=== PATIENT | female | born 1975 | race Caucasian/White ===

== ENCOUNTER 2020-08-11 15:50 | Outpatient (REF) | payer MEDICARE, MEDICAID, SELFPAY ==
[2020-08-11 16:59] LABS: Albumin Level 4.2 g/dL (3.5-5.0); Calcium 9.8 mg/dL (8.4-10.2); Estimated Glomerular Filt Rate > 60
== END 2020-08-11 15:51 | disposition home or self-care (01) ==
LOC: HO.LAB 15:50
PROVIDERS: Visit Provider Internal Medicine
DX: M81.0 Age-related osteoporosis without current pathological fracture (principal)
CPT/HCPCS: 82040; 82310; 82565

== ENCOUNTER 2020-09-28 16:15 | Outpatient (REF) | payer MEDICARE, MEDICAID, SELFPAY ==
--- NOTE | 2020-09-28 16:19 | MM_ITS ---
EXAMINATION: MM SCREENING DIGITAL BREAST TOMOSYNTHESIS, BILATERAL CLINICAL INFORMATION: Screening. Asymptomatic. No prior history breast surgery. No known family history breast cancer. The lifetime risk of breast cancer based on the Tyrer-Cuzick Model is 12%. COMPARISON: Outside mammography: 06/23/2017 ([place]) TECHNIQUE: Digital breast tomosynthesis is performed in both the craniocaudal and mediolateral oblique views along with computer-aided detection (CAD). Synthesized 2D images are generated from the tomosynthesis. Additional right exaggerated CC view is provided. Technologist notes technically challenging exam, positioning caliber to patient capabilities. FINDINGS: There are scattered areas of fibroglandular density (ACR BI-RADS breast composition Category b). There are no significant masses, abnormal calcifications, or other abnormalities. The axilla are unremarkable. The skin contours are smooth. No significant changes. MM/MM tomosynthesis screening BI IMPRESSION: No mammographic evidence of malignancy. ASSESSMENT: BI-RADS 1: Negative RECOMMENDATION: Routine annual mammography screening. This patient's information was entered into a reminder system with a target due date for their next mammogram.
== END 2020-09-28 16:16 | disposition home or self-care (01) ==
LOC: HO.MAMMO 16:15
PROVIDERS: PCP Internal Medicine; Visit Provider Internal Medicine
DX: Z12.31 Encounter for screening mammogram for malignant neoplasm of breast (principal)
CPT/HCPCS: 77063; 77067

== ENCOUNTER 2020-10-15 15:54 | Outpatient (REF) | payer MEDICARE, MEDICAID, SELFPAY ==
[2020-10-15 17:48] LABS: Free T4 (Free Thyroxine) 1.26 ng/dL (0.71-1.85)
== END 2020-10-15 15:55 | disposition home or self-care (01) ==
LOC: HO.LAB 15:54
PROVIDERS: PCP Internal Medicine; Visit Provider Internal Medicine
DX: E03.9 Hypothyroidism, unspecified (principal)
CPT/HCPCS: 84439; 84443

== ENCOUNTER 2021-01-15 15:42 | Outpatient (REF) | payer MEDICARE, MEDICAID, SELFPAY ==
[2021-01-15 16:26] LABS: Calcium 9.5 mg/dL (8.4-10.2); Phosphorus 4.5 mg/dL (2.7-4.5)
[2021-01-15 16:50] LABS: Free T4 (Free Thyroxine) 1.31 ng/dL (0.71-1.85); Thyroid Stimulating Hormone 0.76 uIU/mL (0.32-4.0)
[2021-01-18 16:07] LABS: Calcium (PTHI) 9.5 mg/dL (8.6-10.2); PTHI 34 pg/mL (14-64)
== END 2021-01-15 15:43 | disposition home or self-care (01) ==
LOC: HO.LAB 15:42
PROVIDERS: PCP Internal Medicine; Visit Provider Internal Medicine
DX: M81.0 Age-related osteoporosis without current pathological fracture (principal); E03.9 Hypothyroidism, unspecified; E55.9 Vitamin D deficiency, unspecified
CPT/HCPCS: 36415; 82040; 82306; 82310; 83970; 84100; 84439; 84443

== ENCOUNTER → 2021-01-22 15:07 | Outpatient (BNVA) | payer MEDICARE, MEDICAID, SELFPAY | PROVIDERS: PCP Internal Medicine; Visit Provider Internal Medicine Endocrinology, Diabetes & Metabolism | DX: M81.0 Age-related osteoporosis without current pathological fracture (principal) | CPT/HCPCS: 96402 ==

== ENCOUNTER 2021-02-17 15:42 | Outpatient (REF) | payer MEDICARE, MEDICAID, SELFPAY ==
[2021-02-17 16:29] LABS: Albumin Level 4.1 g/dL (3.5-5.0); Calcium 9.8 mg/dL (8.4-10.2)
[2021-02-17 16:55] LABS: Free T4 (Free Thyroxine) 1.14 ng/dL (0.71-1.85); Thyroid Stimulating Hormone 0.75 uIU/mL (0.32-4.0)
[2021-02-18 12:22] LABS: Calcium (PTHI) 9.6 mg/dL (8.6-10.2); PTHI 23 pg/mL (14-64)
== END 2021-02-17 15:43 | disposition home or self-care (01) ==
LOC: HO.LAB 15:42
PROVIDERS: PCP Internal Medicine; Visit Provider Internal Medicine
DX: E03.9 Hypothyroidism, unspecified (principal); M81.0 Age-related osteoporosis without current pathological fracture
CPT/HCPCS: 36415; 82040; 82310; 83970; 84439; 84443

== ENCOUNTER → 2021-05-03 08:02 | Outpatient (BNVA) | payer MEDICARE, MEDICAID, SELFPAY | PROVIDERS: PCP Internal Medicine; Visit Provider Internal Medicine | CPT/HCPCS: Q3014 ==

== ENCOUNTER 2021-05-24 06:20 | Day surgery (SDC) | payer MEDICARE, MEDICAID, SELFPAY ==
[2021-05-13 17:02] LABS: Glucose Urine UA NEG (NEG); Leukocyte Esterase Urine TRACE (NEG); Nitrite Urine NEG (NEG); Specific Gravity - Urine 1.015 (1.005-1.025); UACC Culture Trigger YES; Urine Blood NEG (NEG); Urine Ketones NEG (NEG); Urine Protein NEG (NEG-TRACE)
[2021-05-13 17:03] LABS: Appearance Urine CLEAR; Color Urine YELLOW
[2021-05-13 17:05] LABS: Hemoglobin 13.6 g/dl (12.0-16.0); Mean Corpuscular HGB Conc 32.4 g/dl (31.0-35.0); Mean Corpuscular Hemoglobin 29.8 pg (27.0-33.0); Mean Corpuscular Volume 92.1 fL (80-98); Mean Platelet Volume 12.4 fL (9.4-12.3); Platelet Count 238 X10*3/uL (160-400); Red Blood Count 4.56 X10*6/uL (4.20-5.50); Red Cell Distribution Width 12.7 % (11.0-16.0); White Blood Count 7.9 X10*3/uL (4.8-10.8)
[2021-05-13 17:11] LABS: Prothrombin Time 11.6 SEC (9.9-13.0)
[2021-05-13 17:32] LABS: Anion Gap 15 (12-20); Blood Urea Nitrogen 15 mg/dL (9-16); Calcium 9.3 mg/dL (8.4-10.2); Carbon Dioxide 21 mmol/L (22-29); Chloride 108 mmol/L (96-108); Estimated Glomerular Filt Rate > 60; Glucose Random 94 mg/dL (60-115); Potassium 4.3 mmol/L (3.3-5.1); Sodium 140 mmol/L (135-145)
[2021-05-13 17:33] LABS: Mucus Urine 1+ /LPF; RBC Urine 0-2 /HPF (0); Squamous Epithelial Cell Urine 1+ /LPF
[2021-05-18 09:36] VITALS: BMI 31.5
--- NOTE | 2021-05-20 07:50 | MHC.SHP ---
Pre-Procedural Eval Section A Date of Service: 05/20/21 The patient is an INPATIENT: No The History & Physical has been completed within 30 days and I have reviewed it.: Yes Section B Chief Complaint: Bilateral Cataracts Allergies: Allergies Allergy/AdvReac Type Severity Reaction Status Date / Time No Known Allergies Allergy Verified 05/13/21 15:17 [No Known Allergies*] Plan Diagnosis/Plan: Unchanged I have reviewed the history and physical and performed a pertinent physical examination on my patient. No changes have occurred unless specified.
--- NOTE | 2021-05-21 10:40 | HO.ANESPROP2 ---
Documented by User: Vesta Ricksney 05/21/21 10:42 HPI - Anesthesia Eval Consult details Narrative: 46yo F for Bilateral Cataract Extraction IOL Insertion PCP cleared PMFSH Active Problems Active Problems: All Active Problems (Updated 05/18/21 @ 09:34 by Anel Saravia) Pre-op evaluation (Acute) Cataracts, bilateral (Acute) Vitamin D deficiency (Acute) Osteoporosis (Acute) Foot pain (Acute) Psoriasis (Acute) Hypothyroidism (Acute) Past Medical History Medical History Cerebral palsy COVID-19 vaccine administered Foot pain Hypothyroidism Osteoporosis Psoriasis Vitamin D deficiency Family History Family History Father No problems noted. Mother Cancer Brother No problems noted. Surgical History Surgical History H/O thyroidectomy History of surgery Hx of oral surgery Social History Social History Household Members Other:: shared living via Photos to Photos Housing: House Are you a primary child care assistant to a significant other at home: No Do you presently have visiting nurse or other home services: Yes (lives in shared living) Alcohol intake: current Alcohol intake frequency: holidays/special occasions only Alcohol type: beer Patient Tobacco Use Status: Never used Tobacco Use of substances other than those prescribed or required for medical reasons: No Have you been hit, kicked, punched, or otherwise hurt by someone within the past year? If so, by whom?: No Are you DNR?: No Advance Directives: Yes (mother Heather Ramos-will bring copy DOS) Advance Directives Information Provided: Yes Advance Directives on File: No Advance Directives Date on File: 05/24/21 Recently lost weight without trying: No Eating poorly because of decreased appetite: No Nutrition Risks: No Nutritional Risk Patient : No FDLMP: unknown : No Poor oral hygiene: No service: No Current occupational status: employed and disabled Current occupation: [employer] Allergies Allergy/AdvReac Type Severity Reaction Status Date / Time No Known Allergies Allergy Verified 05/24/21 07:04 [No Known Allergies*] Home Medications Medication Instructions Recorded Confirmed Last Taken Type calcipotriene 0.005 % topical cream 1 applic TOPICAL DAILY 10/08/20 07/13/21 Unknown History ketoconazole 2 % topical cream 1 applic TOPICAL BID 08/13/20 05/18/21 Unknown History triamcinolone acetonide 0.1 % 1 applic TOPICAL DAILY 08/13/20 05/18/21 Unknown History topical cream medroxyprogesterone [Depo-Provera] 150 mg IM [id number] 05/18/21 05/18/21 Unknown History Exam Exam Date and Time: May 21, 2021 1040 Height,Weight and Vital Signs: Height 5 ft 2 in Weight 78.2 kg Pertinent Lab Results Pertinent Lab Results: Laboratory Tests 05/13/21 05/13/21 05/13/21 16:11 16:11 16:11 WBC 7.9 RBC 4.56 Hgb 13.6 Hct 42.0 MCV 92.1 MCH 29.8 MCHC 32.4 RDW 12.7 Plt Count 238 MPV 12.4 H Absolute Nucleated RBC 0.000 Nucleated RBC % (auto) 0.0 PT 11.6 INR 1.0 Sodium 140 Potassium 4.3 Chloride 108 Carbon Dioxide 21 L Anion Gap 15 BUN 15 Creatinine 0.82 Estim Creat Clear Calc TNP Estimated GFR > 60 Random Glucose 94 Calcium 9.3 Urine Color Urine Appearance Urine pH Ur Specific [place] Urine Protein Urine Glucose (UA) Urine Ketones Urine Blood Urine Nitrite Ur Leukocyte Esterase Urine RBC Urine WBC Ur Squamous Epith Cells Urine Bacteria Urine Mucus 05/13/21 Unknown WBC RBC Hgb Hct MCV MCH MCHC RDW Plt Count MPV Absolute Nucleated RBC Nucleated RBC % (auto) PT INR Sodium Potassium Chloride Carbon Dioxide Anion Gap BUN Creatinine Estim Creat Clear Calc Estimated GFR Random Glucose Calcium Urine Color YELLOW Urine Appearance CLEAR Urine pH 6.0 Ur Specific [place] 1.015 Urine Protein NEG Urine Glucose (UA) NEG Urine Ketones NEG Urine Blood NEG Urine Nitrite NEG Ur Leukocyte Esterase TRACE H Urine RBC 0-2 Urine WBC 1-4 Ur Squamous Epith Cells 1+ Urine Bacteria NONE Urine Mucus 1+ Narrative Narrative: EKG 05/2021 NSR @ 69 Assessment and Plan Assessment Anesthesia Assessment: Chart Reviewed Documented by User: Magdiel Stubbs 05/24/21 08:58 PMFSH Past Medical History Medical History Cerebral palsy COVID-19 vaccine administered Foot pain Hypothyroidism Osteoporosis Psoriasis Vitamin D deficiency Family History Family History Father No problems noted. Mother Cancer Brother No problems noted. Surgical History Surgical History H/O thyroidectomy History of surgery Hx of oral surgery Social History Social History Household Members Other:: shared living via Photos to Photos Housing: House Are you a primary child care assistant to a significant other at home: No Do you presently have visiting nurse or other home services: Yes (lives in shared living) Alcohol intake: current Alcohol intake frequency: holidays/special occasions only Alcohol type: beer Patient Tobacco Use Status: Never used Tobacco Use of substances other than those prescribed or required for medical reasons: No Have you been hit, kicked, punched, or otherwise hurt by someone within the past year? If so, by whom?: No Are you DNR?: No Advance Directives: Yes (mother Heather Ramos-will bring copy DOS) Advance Directives Information Provided: Yes Advance Directives on File: No Advance Directives Date on File: 05/24/21 Recently lost weight without trying: No Eating poorly because of decreased appetite: No Nutrition Risks: No Nutritional Risk Patient : No FDLMP: unknown : No Poor oral hygiene: No service: No Current occupational status: employed and disabled Current occupation: [employer] Allergies Allergy/AdvReac Type Severity Reaction Status Date / Time No Known Allergies Allergy Verified 05/24/21 07:04 [No Known Allergies*] Home Medications Medication Instructions Recorded Confirmed Last Taken Type calcipotriene 0.005 % topical cream 1 applic TOPICAL DAILY 08/13/20 05/18/21 Unknown History ketoconazole 2 % topical cream 1 applic TOPICAL BID 08/13/20 05/18/21 Unknown History triamcinolone acetonide 0.1 % 1 applic TOPICAL DAILY 08/13/20 05/18/21 Unknown History topical cream medroxyprogesterone [Depo-Provera] 150 mg IM [id number] 05/18/21 05/18/21 Unknown History Exam Airway Mallampati Class: III TM Dist: >3cm Neck ROM: Full Loose/Missing/Broken Teeth: No Heart: rrr+[id number] Lungs: cta b/l Assessment and Plan Assessment Anesthesia Assessment: Anesthesia Plan Discussed, PAT Visit and Chart Reviewed Final Anesthetic Review NPO: Yes ASA Class: III Final Preanesthetic Review: No Changes in Pt Med Stat, Meds/Allgs Chart Reviewed, Consent Obtained/Reviewed and Anes Risks/Benef Reviewed Patient Risk: Intermediate Procedure Risk: Low Assessment/Block/Sedation in SS: Assess/Block/Sedation-SS Anesthetic Plan Anesthetic Plan: GA and Agree w/ Assess. and Plan Disposition: Standard PACU
[2021-05-24 06:53] VITALS: BP 143/94; PULSE 81; RESP 16; TEMP 36.7; O2SAT 98
[2021-05-24 06:58] LABS: UPreg QC Valid YES; Urine Pregnancy NEGATIVE (NEGATIVE)
[2021-05-24] MEDS: Lactated Ringers 500 ML 50 ML IV (07:06)
[2021-05-24] MEDS: Tetracaine HCl/PF 0.5% Oph Sol 4 ML DROPS 1 DROP EYE-BOTH (07:07)
[2021-05-24] MEDS: Tropicamide 1 % Ophth Sol 3 ML BTL 1 DROP EYE-BOTH ×3 (07:13→07:26)
[2021-05-24] MEDS: Phenylephrine HCL 2.5% Oph SoL 2 ML BOTTLE 1 DROP EYE-BOTH ×3 (07:17→07:30)
--- NOTE | 2021-05-24 09:17 | HO.PNOPHT ---
Ophthalmology Procedure Procedure Date of Service: 05/24/21 Ophthalmology Viscoelastic: Healon Duet Dual Pack Pro Ophthalmology Lenses: TECNIS [id number] (OD:23; OS:22.5) Procedure Notes: PREOPERATIVE DIAGNOSIS: Decreased visual acuity left eye secondary to cataract POSTOPERATIVE DIAGNOSIS: Same PROCEDURE: Left cataract extraction with intraocular lens insertion SURGEON: Fareed Quijano M.D. ANESTHESIA: General ESTIMATED BLOOD LOSS: None COMPLICATIONS: None After obtaining informed consent, the patient was brought to the operation room suite and placed in the supine position. After adequate sedation per anesthesia, topical drops of Tetracaine were given to the left eye. The eye was then prepped and draped in the usual sterile fashion. The operating room microscope was then positioned over the operative eye and a lid speculum placed. A paracentesis was created. Viscoelastic was then instilled into the anterior chamber. A three plane incision was then created temporally, utilizing a 2.85 mm keratome. Capsulotomy forceps were then utilized to create a circular tear capsulotomy. Hydrodissection and hydrodelineation were carried out until adequate mobilization of the nucleus occurred. Phacoemulsification was then utilized to remove the dense central nucleus followed by removal of the cortical material utilizing the automated aspiration irrigation unit. Viscoat elastic was instilled into the posterior capsular bag followed by placement of a posterior chamber intraocular lens without difficulty. The residual Viscoat elastic was then removed utilizing the automated IA machine. The wound was check and found to be watertight. The patient tolerated the procedure well and the lid speculum was removed. Intracameral injection of Vigamox 0.1 mL followed by a subtenon injection of Kenalog-40 0.2 mL were administered. The patient will be seen in the a.m. PREOPERATIVE DIAGNOSIS: Decreased visual acuity right eye secondary to cataract POSTOPERATIVE DIAGNOSIS: Same PROCEDURE: Right cataract extraction with intraocular lens insertion SURGEON: Fareed Quijano M.D. ANESTHESIA: General ESTIMATED BLOOD LOSS: None COMPLICATIONS: None After obtaining informed consent, the patient was brought to the operating room suite and placed in the supine position. After adequate sedation per anesthesia, topical drops of Tetracaine were given to the right eye. The eye was then prepped and draped in the usual sterile fashion. The operating room microscope was then positioned over the operative eye and a lid speculum placed. A paracentesis was created. Viscoelastic was then instilled into the anterior chamber. A three plane incision was then created temporally, utilizing a 2.85 mm keratome. Capsulotomy forceps were then utilized to create a circular tear capsulotomy. Hydrodissection and hydrodelineation were carried out until adequate mobilization of the nucleus occurred. Phacoemulsification was then utilized to remove the dense central nucleus followed by removal of the cortical material utilizing the automated aspiration irrigation unit. Viscoelastic was instilled into the posterior capsular bag followed by placement of a posterior chamber intraocular lens without difficulty. The residual Viscoelastic was then removed utilizing the automated IA machine. The wound was checked and found to be watertight. The patient tolerated the procedure well and the lid speculum was removed. Intracameral injection of Vigamox 0.1 mL followed by a subtenon injection of Kenalog-40 0.2 mL were administered. The patient will be seen in the a.m.
[2021-05-24 10:30] VITALS: BP 125/79; PULSE 93; RESP 14; TEMP 37.7; O2SAT 100
[2021-05-24 10:35] VITALS: BP 139/87; PULSE 102; RESP 16; O2SAT 99
[2021-05-24 10:40] VITALS: BP 142/92; PULSE 89; RESP 18; O2SAT 99
[2021-05-24 10:45] VITALS: BP 144/91; PULSE 91; RESP 16; O2SAT 99
[2021-05-24 11:00] VITALS: BP 146/96; PULSE 90; RESP 18; O2SAT 99
== END 2021-05-24 11:14 | disposition home health service (06) ==
PROVIDERS: Nurse Practitioner; Physician Assistant; PCP Internal Medicine; Visit Provider Ophthalmology
PROC: (CPT 66985; principal; 2021-05-24 10:10)
DX: H25.13 Age-related nuclear cataract, bilateral (principal); H52.533 Spasm of accommodation, bilateral; H52.4 Presbyopia; H51.8 Other specified disorders of binocular movement; G80.9 Cerebral palsy, unspecified; E03.9 Hypothyroidism, unspecified; E55.9 Vitamin D deficiency, unspecified; M81.0 Age-related osteoporosis without current pathological fracture; I10 Essential (primary) hypertension; Z79.899 Other long term (current) drug therapy
CPT/HCPCS: 66984; 36415; 80048; 81001; 81003; 81025; 85027; 85610; 87086; J1100; J2405; J3010; J3300; V2632

== ENCOUNTER 2021-08-03 15:50 | Outpatient (REF) | payer MEDICARE, MEDICAID, SELFPAY ==
[2021-08-03 16:13] LABS: MANUAL DIFF FLAG NO
[2021-08-03 17:30] LABS: Basophils Percent Auto 0.5 % (0-2); Eosinophils Absolute Auto 0.1 X10*3/uL (0.0-0.4); Eosinophils Percent Auto 1.5 % (0-4); Hematocrit 41.6 % (37-47); Hemoglobin 13.5 g/dl (12.0-16.0); Imm Gran Abs Auto 0.06 X10*3/uL (0.00-0.03); Imm Gran Pct Auto 0.7 % (0.0-0.4); Lymphocytes Absolute Auto 1.9 X10*3/uL (1.2-4.9); Lymphocytes Percent Auto 23.3 % (20-40); Mean Corpuscular HGB Conc 32.5 g/dl (31.0-35.0); Mean Corpuscular Hemoglobin 30.1 pg (27.0-33.0); Mean Corpuscular Volume 92.7 fL (80-98); Mean Platelet Volume 11.4 fL (9.4-12.3); Monocytes Absolute Auto 0.7 X10*3/uL (0.1-1.2); Monocytes Percent Auto 8.4 % (2-11); Neutrophils Absolute Auto 5.4 X10*3/uL (2.0-8.3); Neutrophils Percent Auto 65.6 % (45-73); Platelet Count 352 X10*3/uL (160-400); Red Blood Count 4.49 X10*6/uL (4.20-5.50); Red Cell Distribution Width 12.9 % (11.0-16.0); White Blood Count 8.2 X10*3/uL (4.8-10.8)
[2021-08-03 17:43] LABS: Alanine Aminotransferase 10 U/L (0-31); Albumin Level 3.9 g/dL (3.5-5.0); Alkaline Phosphatase 55 U/L (39-117); Anion Gap 13 (12-20); Aspartate Amino Transferase 14 U/L (5-31); Bilirubin Total 0.8 mg/dL (0.0-1.0); Blood Urea Nitrogen 14 mg/dL (9-16); Calcium 9.4 mg/dL (8.4-10.2); Carbon Dioxide 22 mmol/L (22-29); Chloride 108 mmol/L (96-108); Cholesterol 201 mg/dL; Estimated Glomerular Filt Rate > 60; Glucose Random 91 mg/dL (60-115); HDL Cholesterol 47 mg/dL; LDL Cholesterol Calculated 134 mg/dl; Phosphorus 4.5 mg/dL (2.7-4.5); Potassium 4.1 mmol/L (3.3-5.1); Sodium 139 mmol/L (135-145); Total Protein 6.9 g/dL (6.5-8.0); Triglycerides 104 mg/dL
[2021-08-03 18:08] LABS: Thyroid Stimulating Hormone 1.57 uIU/mL (0.32-4.0); Vitamin D 25-OH Total 59.1 ng/mL (>30)
[2021-08-05 05:52] LABS: Calcium (PTHI) 9.5 mg/dL (8.6-10.2); PTHI 20 pg/mL (14-64)
== END 2021-08-03 15:51 | disposition home or self-care (01) ==
LOC: HO.LAB 15:50
PROVIDERS: PCP Internal Medicine; Visit Provider Internal Medicine
DX: E55.9 Vitamin D deficiency, unspecified (principal); E03.9 Hypothyroidism, unspecified; M81.0 Age-related osteoporosis without current pathological fracture; E78.5 Hyperlipidemia, unspecified; D64.9 Anemia, unspecified
CPT/HCPCS: 36415; 80053; 80061; 82306; 83970; 84100; 84439; 84443; 85025

== ENCOUNTER → 2021-08-09 12:55 | Outpatient (BNVA) | payer MEDICARE, MEDICAID, SELFPAY | PROVIDERS: PCP Internal Medicine; Visit Provider Internal Medicine | DX: M81.0 Age-related osteoporosis without current pathological fracture (principal); E55.9 Vitamin D deficiency, unspecified; E03.9 Hypothyroidism, unspecified | CPT/HCPCS: 96372; 99212 ==

== ENCOUNTER 2021-09-07 16:05 | Outpatient (REF) | payer MEDICARE, MEDICAID, SELFPAY ==
[2021-09-07 16:55] LABS: Estimated Glomerular Filt Rate > 60; Phosphorus 3.6 mg/dL (2.7-4.5)
[2021-09-08 18:42] LABS: PTHI 46 pg/mL (14-64)
== END 2021-09-07 16:06 | disposition home or self-care (01) ==
LOC: HO.LAB 16:05
PROVIDERS: PCP Internal Medicine; Visit Provider Internal Medicine
DX: M81.0 Age-related osteoporosis without current pathological fracture (principal)
CPT/HCPCS: 36415; 82565; 83970; 84100

== ENCOUNTER 2021-10-18 12:47 | Outpatient (REF) | payer MEDICARE, MEDICAID, SELFPAY ==
--- NOTE | ~2021-10-18 | US_ITS ---
EXAMINATION: US SOFT TISSUE HEAD/NECK CLINICAL INFORMATION: Localized swelling, mass and lump, neck. COMPARISON: None. TECHNIQUE: Linear transducer moore-scale and color Doppler examination with attention to the region of concern in the left lateral lower neck/shoulder with the right side for comparison. The patient returned on 10/21/2021 for additional images. FINDINGS: No adenopathy or solid or cystic soft tissue mass is appreciated by ultrasound. US/US soft tiss head and/or neck IMPRESSION: No abnormality appreciated by ultrasound.
== END 2021-10-18 12:48 | disposition home or self-care (01) ==
LOC: HO.US 12:47
PROVIDERS: PCP Internal Medicine; Visit Provider Internal Medicine
DX: R22.1 Localized swelling, mass and lump, neck (principal)
CPT/HCPCS: 76536

== ENCOUNTER 2021-10-20 08:05 | Outpatient (REF) | payer MEDICARE, MEDICAID, SELFPAY ==
--- NOTE | ~2021-10-20 | MM_ITS ---
EXAMINATION: MM SCREENING DIGITAL BREAST TOMOSYNTHESIS, BILATERAL CLINICAL INFORMATION: Screening. Asymptomatic. The lifetime risk of breast cancer based on the Tyrer-Cuzick Model is 11%. COMPARISON: Mammography: 09/28/2020, 06/23/2017 TECHNIQUE: Digital breast tomosynthesis is performed in both the craniocaudal and mediolateral oblique views along with computer-aided detection (CAD). Synthesized 2D images are generated from the tomosynthesis. FINDINGS: There are scattered areas of fibroglandular density (ACR BI-RADS breast composition Category b). There are no significant masses, abnormal calcifications, or other abnormalities. MM/MM tomosynthesis screening BI IMPRESSION: There are no significant changes from prior study. ASSESSMENT: BI-RADS 1: Negative RECOMMENDATION: Routine annual mammography screening. This patient's information was entered into a reminder system with a target due date for their next mammogram.
== END 2021-10-20 08:06 | disposition home or self-care (01) ==
LOC: HO.MAMMO 08:05
PROVIDERS: Visit Provider Internal Medicine
DX: Z12.31 Encounter for screening mammogram for malignant neoplasm of breast (principal)
CPT/HCPCS: 77063; 77067

== ENCOUNTER 2022-02-04 15:54 | Outpatient (REF) | payer MEDICARE, MEDICAID, SELFPAY ==
[2022-02-04 16:58] LABS: Alanine Aminotransferase 12 U/L (0-31); Albumin Level 3.9 g/dL (3.5-5.0); Alkaline Phosphatase 49 U/L (39-117); Anion Gap 12 (12-20); Aspartate Amino Transferase 13 U/L (5-31); Bilirubin Total 0.6 mg/dL (0.0-1.0); Blood Urea Nitrogen 22 mg/dL (9-16); Calcium 9.1 mg/dL (8.4-10.2); Carbon Dioxide 25 mmol/L (22-29); Chloride 108 mmol/L (96-108); Estimated Glomerular Filt Rate > 60; Glucose Random 94 mg/dL (60-115); Potassium 4.4 mmol/L (3.3-5.1); Sodium 141 mmol/L (135-145)
[2022-02-04 17:18] LABS: Free T4 (Free Thyroxine) 1.11 ng/dL (0.71-1.85); Thyroid Stimulating Hormone 2.65 uIU/mL (0.32-4.0); Vitamin D 25-OH Total 40.4 ng/mL (>30)
[2022-02-07 12:41] LABS: Calcium (PTHI) 9.1 mg/dL (8.6-10.2); PTHI 35 pg/mL (16-77)
== END 2022-02-04 15:55 | disposition home or self-care (01) ==
LOC: HO.LAB 15:54
PROVIDERS: PCP Internal Medicine; Visit Provider Internal Medicine
DX: E03.9 Hypothyroidism, unspecified (principal); E55.9 Vitamin D deficiency, unspecified; M81.0 Age-related osteoporosis without current pathological fracture
CPT/HCPCS: 36415; 80053; 82306; 83970; 84100; 84439; 84443

== ENCOUNTER → 2022-02-15 14:54 | Outpatient (BNVA) | payer MEDICARE, MEDICAID, SELFPAY | PROVIDERS: PCP Internal Medicine; Visit Provider Nurse Practitioner Gerontology | DX: Z13.89 Encounter for screening for other disorder (principal) | CPT/HCPCS: 96372 ==

== ENCOUNTER 2022-03-07 13:09 | Outpatient (REF) | payer MEDICARE, MEDICAID, SELFPAY ==
[2022-03-07 14:38] LABS: Estimated Glomerular Filt Rate > 60
[2022-03-08 12:37] LABS: Calcium (PTHI) 8.7 mg/dL (8.6-10.2); PTHI 60 pg/mL (16-77)
== END 2022-03-07 13:10 | disposition home or self-care (01) ==
LOC: HO.LAB 13:09
PROVIDERS: PCP Internal Medicine; Visit Provider Nurse Practitioner Gerontology
DX: M81.0 Age-related osteoporosis without current pathological fracture (principal)
CPT/HCPCS: 36415; 82565; 83970

== ENCOUNTER 2022-08-17 15:53 | Outpatient (REF) | payer MEDICARE, MEDICAID, SELFPAY ==
[2022-08-17 17:04] LABS: Alanine Aminotransferase 61 U/L (0-31); Albumin Level 4.1 g/dL (3.5-5.0); Alkaline Phosphatase 51 U/L (39-117); Anion Gap 18 (12-20); Aspartate Amino Transferase 40 U/L (5-31); Bilirubin Total 0.4 mg/dL (0.0-1.0); Blood Urea Nitrogen 20 mg/dL (9-16); Calcium 9.6 mg/dL (8.4-10.2); Carbon Dioxide 22 mmol/L (22-29); Chloride 103 mmol/L (96-108); Estimated Glomerular Filt Rate > 60; Glucose Random 96 mg/dL (60-115); Phosphorus 4.2 mg/dL (2.7-4.5); Potassium 4.3 mmol/L (3.3-5.1); Sodium 139 mmol/L (135-145); Total Protein 7.3 g/dL (6.5-8.0)
[2022-08-17 17:28] LABS: Free T4 (Free Thyroxine) 1.27 ng/dL (0.71-1.85); Thyroid Stimulating Hormone 4.54 uIU/mL (0.32-4.0); Vitamin D 25-OH Total 46.7 ng/mL (>30)
[2022-08-18 13:21] LABS: Calcium (PTHI) 9.7 mg/dL (8.6-10.2); PTHI 28 pg/mL (16-77)
== END 2022-08-17 15:54 | disposition home or self-care (01) ==
LOC: HO.LAB 15:53
PROVIDERS: PCP Internal Medicine; Visit Provider Internal Medicine
DX: M81.0 Age-related osteoporosis without current pathological fracture (principal); E55.9 Vitamin D deficiency, unspecified; E03.9 Hypothyroidism, unspecified
CPT/HCPCS: 36415; 80053; 82306; 83970; 84100; 84439; 84443

== ENCOUNTER 2022-08-18 11:26 | Outpatient (REF) | payer MEDICARE, MEDICAID, SELFPAY ==
[2022-08-25 05:27] LABS: N-Telopeptide 35 (see note); NTXCreaRU 78 mg/dL (20-275)
== END 2022-08-18 11:27 | disposition home or self-care (01) ==
LOC: HO.LNP 11:26
PROVIDERS: Visit Provider Internal Medicine
DX: M81.0 Age-related osteoporosis without current pathological fracture (principal)
CPT/HCPCS: 82523

== ENCOUNTER → 2022-08-24 07:46 | Outpatient (BNVA) | payer MEDICARE, MEDICAID, SELFPAY | PROVIDERS: PCP Internal Medicine; Visit Provider Internal Medicine Endocrinology, Diabetes & Metabolism | DX: M81.0 Age-related osteoporosis without current pathological fracture (principal) | CPT/HCPCS: 96372 ==

== ENCOUNTER 2022-09-10 07:28 | Outpatient (REF) | payer MEDICARE, MEDICAID, SELFPAY ==
[2022-09-10 08:39] LABS: Estimated Glomerular Filt Rate > 60
[2022-09-12 12:42] LABS: PTHI 57 pg/mL (16-77)
== END 2022-09-10 07:29 | disposition home or self-care (01) ==
LOC: HO.LAB 07:28
PROVIDERS: Absent Provider Nurse Practitioner Family; PCP Internal Medicine; Visit Provider Internal Medicine
DX: M81.0 Age-related osteoporosis without current pathological fracture (principal)
CPT/HCPCS: 36415; 82565; 83970

== ENCOUNTER 2022-10-07 15:50 | Outpatient (REF) | payer MEDICARE, MEDICAID, SELFPAY ==
[2022-10-07 16:41] LABS: Hematocrit 41.6 % (37.0-47.0); Hemoglobin 13.7 g/dl (12.0-16.0); Mean Corpuscular HGB Conc 32.9 g/dl (31.0-35.0); Mean Corpuscular Hemoglobin 30.2 pg (27.0-33.0); Mean Corpuscular Volume 91.8 fL (80.0-98.0); Mean Platelet Volume 11.2 fL (9.4-12.3); Platelet Count 323 X10*3/uL (160-400); Red Blood Count 4.53 X10*6/uL (4.20-5.50); White Blood Count 7.1 X10*3/uL (4.8-10.8)
[2022-10-07 17:46] LABS: Alanine Aminotransferase 12 U/L (0-31); Albumin Level 3.8 g/dL (3.5-5.0); Alkaline Phosphatase 49 U/L (39-117); Aspartate Amino Transferase 13 U/L (5-31); Bilirubin Direct 0.2 mg/dL (0.0-0.5); Bilirubin Total 0.5 mg/dL (0.0-1.0); Cholesterol 197 mg/dL; Free T4 (Free Thyroxine) 1.25 ng/dL (0.71-1.85); HDL Cholesterol 39 mg/dL; LDL Cholesterol Calculated 140 mg/dl; Thyroid Stimulating Hormone 0.47 uIU/mL (0.32-4.0); Total Protein 6.6 g/dL (6.5-8.0); Triglycerides 94 mg/dL
== END 2022-10-07 15:51 | disposition home or self-care (01) ==
LOC: HO.LAB 15:50
PROVIDERS: Nurse Practitioner Family; Visit Provider Internal Medicine
DX: Z00.00 Encounter for general adult medical examination without abnormal findings (principal); E03.9 Hypothyroidism, unspecified
CPT/HCPCS: 36415; 80061; 80076; 84439; 84443; 85027

== ENCOUNTER 2022-10-25 08:01 | Outpatient (REF) | payer MEDICARE, MEDICAID, SELFPAY ==
--- NOTE | ~2022-10-25 | MM_ITS ---
EXAMINATION: MM SCREENING DIGITAL BREAST TOMOSYNTHESIS, BILATERAL CLINICAL INFORMATION: Screening. Asymptomatic. The lifetime risk of breast cancer based on the Tyrer-Cuzick Model is 11.0%. COMPARISON: Mammography: October 20, 2021 and studies dating back to June 23, 2017 TECHNIQUE: Digital breast tomosynthesis is performed in both the craniocaudal and mediolateral oblique views along with computer-aided detection (CAD). Synthesized 2D images are generated from the tomosynthesis. FINDINGS: There are scattered areas of fibroglandular density (ACR BI-RADS breast composition Category b). There is a stable parenchymal pattern of the left breast with no new abnormal dominant mass or suspicious grouping of microcalcifications. About the anterior inferior medial aspect of the right breast there is a new region of density which likely represents superimposition of fibroglandular tissue however spot compression views are recommended. MM/MM tomosynthesis screening BI IMPRESSION: Right breast density for further evaluation. ASSESSMENT: BI-RADS 0: Incomplete - Need Additional Imaging Evaluation RECOMMENDATION: 1. Additional views of the right breast 2. Targeted ultrasound if warranted after review of the additional views. 3. Radiology department staff will contact the patient for additional imaging. This patient's information was entered into a reminder system with a target due date for their next mammogram.
== END 2022-10-25 08:02 | disposition home or self-care (01) ==
LOC: HO.MAMMO 08:01
PROVIDERS: PCP Internal Medicine; Visit Provider Internal Medicine
DX: Z12.31 Encounter for screening mammogram for malignant neoplasm of breast (principal)
CPT/HCPCS: 77063; 77067

== ENCOUNTER 2022-11-10 14:17 | Outpatient (REF) | payer MEDICARE, MEDICAID, SELFPAY ==
--- NOTE | ~2022-11-10 | MM_ITS ---
EXAMINATION: MM DIAGNOSTIC DIGITAL MAMMOGRAPHY, RIGHT CLINICAL INFORMATION: Recall from screening for questionable asymmetric density anterior lower inner right breast, suspect summation artifact. COMPARISON: Mammography: 10/25/2022, 10/20/2021, 09/28/2020 TECHNIQUE: Digital mammography is performed in the following views: Spot ML x2, spot CC, FINDINGS: There are scattered areas of fibroglandular density (ACR BI-RADS breast composition Category b). Additional views show scattered fibroglandular tissue without underlying mass or architectural abnormality. No developing density. No significant changes from prior studies. Results are discussed with the patient at time of visit. MM/MM added views RT IMPRESSION: Additional views show normal fibroglandular densities with no significant changes from prior studies. ASSESSMENT: BI-RADS 2: Benign RECOMMENDATION: Routine annual mammography screening. This patient's information was entered into a reminder system with a target due date for their next mammogram.
== END 2022-11-10 14:18 | disposition home or self-care (01) ==
LOC: HO.MAMMO 14:17
PROVIDERS: PCP Internal Medicine; Visit Provider Internal Medicine
DX: R92.2 Inconclusive mammogram (principal)
CPT/HCPCS: 77065

== ENCOUNTER 2023-02-14 07:43 | Outpatient (REF) | payer MEDICARE, MEDICAID, SELFPAY ==
[2023-02-14 08:46] LABS: Alanine Aminotransferase 9 U/L (0-31); Albumin Level 3.6 g/dL (3.5-5.0); Alkaline Phosphatase 52 U/L (39-117); Anion Gap 12 (12-20); Aspartate Amino Transferase 13 U/L (5-31); Bilirubin Total 0.9 mg/dL (0.0-1.0); Blood Urea Nitrogen 13 mg/dL (9-16); Calcium 9.1 mg/dL (8.4-10.2); Carbon Dioxide 25 mmol/L (22-29); Chloride 110 mmol/L (96-108); Estimated Glomerular Filt Rate > 60; Glucose Random 107 mg/dL (60-115); Phosphorus 4.1 mg/dL (2.7-4.5); Potassium 4.3 mmol/L (3.3-5.1); Sodium 143 mmol/L (135-145); Total Protein 6.5 g/dL (6.5-8.0)
[2023-02-14 09:03] LABS: Vitamin D 25-OH Total 28.8 ng/mL (>30)
[2023-02-15 13:49] LABS: Calcium (PTHI) 9.3 mg/dL (8.6-10.2); PTHI 43 pg/mL (16-77)
== END 2023-02-14 07:44 | disposition home or self-care (01) ==
LOC: HO.LAB 07:43
PROVIDERS: PCP Internal Medicine; Visit Provider Internal Medicine
DX: M81.0 Age-related osteoporosis without current pathological fracture (principal); E55.9 Vitamin D deficiency, unspecified
CPT/HCPCS: 36415; 80053; 82306; 83970; 84100

== ENCOUNTER → 2023-03-01 14:14 | Outpatient (BNVA) | payer MEDICARE, MEDICAID, SELFPAY | PROVIDERS: PCP Internal Medicine; Visit Provider Internal Medicine | DX: M81.0 Age-related osteoporosis without current pathological fracture (principal) | CPT/HCPCS: 96372 ==

== ENCOUNTER 2023-03-18 07:48 | Outpatient (REF) | payer MEDICARE, MEDICAID, SELFPAY ==
--- NOTE | ~2023-03-18 | XR_ITS ---
EXAMINATION: XR LUMBOSACRAL SPINE CLINICAL INFORMATION: Low back pain COMPARISON: None available. TECHNIQUE: Three views of the lumbosacral spine. FINDINGS: There is maintained lumbar lordosis. The vertebral heights and alignment is normal. No visible acute fracture or dislocation seen. No aggressive lytic or sclerotic process. Loss of XR/XR lumbar spine 2-3V IMPRESSION: Unremarkable lumbar spine exam.
[2023-03-18 09:31] LABS: Estimated Glomerular Filt Rate > 60
[2023-03-22 13:14] LABS: Calcium (PTHI) 8.6 mg/dL (8.6-10.2); PTHI 68 pg/mL (16-77)
== END 2023-03-18 07:49 | disposition home or self-care (01) ==
LOC: HO.LAB 07:48
PROVIDERS: Absent Provider Internal Medicine; PCP Internal Medicine; Visit Provider Internal Medicine
DX: M54.50 Low back pain, unspecified (principal); M81.0 Age-related osteoporosis without current pathological fracture
CPT/HCPCS: 36415; 72100; 82565; 83970

== ENCOUNTER 2023-09-06 17:02 | Outpatient (REF) | payer MEDICARE, MEDICAID, SELFPAY ==
[2023-09-06 18:13] LABS: Alanine Aminotransferase 9 U/L (0-31); Albumin Level 3.9 g/dL (3.5-5.0); Alkaline Phosphatase 47 U/L (39-117); Anion Gap 15 (12-20); Aspartate Amino Transferase 15 U/L (5-31); Bilirubin Total 0.5 mg/dL (0.0-1.0); Blood Urea Nitrogen 16 mg/dL (9-16); Calcium 9.5 mg/dL (8.4-10.2); Carbon Dioxide 25 mmol/L (22-29); Chloride 107 mmol/L (96-108); Cholesterol 194 mg/dL (<200); Estimated Glomerular Filt Rate > 60; Glucose Fasting 95 mg/dL (60-99); Glucose Random 94 mg/dL (60-115); HDL Cholesterol 45 mg/dL (>40); LDL Cholesterol Calculated 124 mg/dL (<100); Potassium 3.6 mmol/L (3.3-5.1); Sodium 143 mmol/L (135-145); Total Protein 7.3 g/dL (6.5-8.0); Triglycerides 128 mg/dL (<150)
[2023-09-06 18:28] LABS: Thyroid Stimulating Hormone 0.36 uIU/mL (0.32-4.0)
== END 2023-09-06 17:03 | disposition home or self-care (01) ==
LOC: HO.LAB 17:02
PROVIDERS: Internal Medicine Endocrinology, Diabetes & Metabolism; PCP Internal Medicine; Visit Provider Internal Medicine
DX: E55.9 Vitamin D deficiency, unspecified (principal); M81.0 Age-related osteoporosis without current pathological fracture; E78.5 Hyperlipidemia, unspecified; E03.9 Hypothyroidism, unspecified
CPT/HCPCS: 36415; 80048; 80053; 80061; 82306; 84443

== ENCOUNTER 2023-09-11 16:22 | Outpatient (AMB) | payer MEDICARE, MEDICAID, SELFPAY ==
--- NOTE | 2023-09-11 15:53 | AM.OFFVISNUR ---
Intake Intake Visit Reasons: F/U Osteoporosis & prolia shot Allergies Seasonal Allergies Allergy (Mild, Verified 05/10/23 17:22) itchy Nursing Note 15:54 - patient had an appt scheduled for f/u osteoporosis and Prolia injection. Patient did a no show. Prolia back in . Coding Assessment & Plan Assessment & Plan Orders: Orders AMB Denosumab Injection Patient Supplied Today M81.0 - Age-related osteoporosis without current pathological fracture Medications: New Prolia (denosumab) 60 mg subcut ONCE 1 mL 0RF NS M81.0 - Age-related osteoporosis without current pathological fracture Refilled denosumab (Prolia) 60 mg subcut [id number] 1 mL 1RF 1 day M81.0 - Age-related osteoporosis without current pathological fracture
== END 2023-09-11 16:41 | disposition home or self-care (01) ==
LOC: HO.ENCR 16:22
PROVIDERS: PCP Internal Medicine; Visit Provider Internal Medicine Endocrinology, Diabetes & Metabolism
DX: M81.0 Age-related osteoporosis without current pathological fracture (principal)

== ENCOUNTER → 2023-09-11 16:22 | Outpatient (BNVA) | payer MEDICARE, MEDICAID, SELFPAY | PROVIDERS: PCP Internal Medicine; Visit Provider Internal Medicine Endocrinology, Diabetes & Metabolism | DX: M81.0 Age-related osteoporosis without current pathological fracture (principal) | CPT/HCPCS: 96372; J0897 ==

== ENCOUNTER 2023-10-03 09:16 | Outpatient (AMB) | payer MEDICARE, MEDICAID, SELFPAY ==
[2023-10-03 09:19] VITALS: BP 156/92; BMI 29.3
--- NOTE | 2023-10-03 09:19 | A.OFFPC_ITS ---
Vital Signs 10/03/23 09:19 Height 5 ft 4.8 in Weight 175 lb 0.752 oz BMI 29.3 BP 156/92 H Blood Pressure Location Lt brachial Position Sitting Intake Visit Reasons: Annual Exam Intake Note: Patient here for a physical exam Unit Supervisor Required: No Accompanied by: cargiver Allergies Seasonal Allergies Allergy (Mild, Verified 10/03/23 09:27) itchy Medication List - Last Reconciled 10/03/23 by Kellie Phillips MD calcipotriene 0.005% 1 appl topical DAILY calcium citrate 250 mg PO QAM cetirizine (Zyrtec) 10 mg PO DAILY PRN cholecalciferol (vitamin D3) 25 mcg PO DAILY 90 days denosumab (Prolia) 60 mg subcut [id number] 1 day fluoxetine 10 mg PO DAILY 90 days [incontinence pads As directed] ketoconazole 2% 1 appl topical BID levothyroxine 112 mcg PO DAILY 30 days lorazepam 0.5 mg PO DAILY PRN 30 days nirmatrelvir-ritonavir 300 mg (150 mg x 2)-100 mg (Paxlovid) 3 ea PO PER PKG DIR 5 days triamcinolone acetonide 0.1% 1 appl topical DAILY Tobacco use date assessed: 01/27/23 Dental Screening Dental Screen Date: 10/03/23 Did you have a dental visit in the last 12 months?: Yes Did you have a dental problem in the last 6 months where you did not have access to dental care?: No Was dental information given to patient?: Patient has dentist HPI HPI Comments History of Present Illness Details This is a 48-year-old female with cerebral palsy that comes accompanied by safety deposit boxes custodian for her physical exam. She is able to walk with no assistive device and can answer simple questions and follow simple commands. Last Cologuard was October 2022 and was normal. Last mammogram was 2022 and was normal. Complains of nasal congestion and cough that started about 3 days ago. Has sick contacts. Lives with safety deposit boxes custodian. Mild major depression stable with fluoxetine. [facility] Medical History Dysphagia Lump in neck Anxiety COVID-19 vaccine administered Cerebral palsy Vitamin D deficiency Osteoporosis Foot pain Psoriasis Hypothyroidism Surgical History Hx of cataract removal with insertion of prosthetic lens History of surgery Hx of oral surgery H/O thyroidectomy Family History Father No problems noted. Mother Cancer Brother No problems noted. Household Members Other:: shared living via [employer] Housing: House Are you a primary caregiver services home to a significant other at home: No Do you presently have visiting nurse or other home services: Yes (lives in shared living) Alcohol intake: current Alcohol intake frequency: holidays/special occasions only Alcohol type: beer Patient Tobacco Use Status: Never used Tobacco e-Cigarette/Vaping Use: Never Used Second Hand Smoke Exposure: No Advance Directives Date on File: 05/24/21 service: No Current occupational status: employed and disabled Current occupation: [employer] Cognitive needs: No Hearing needs: No Vision needs: No Questionnaire Thrive Questionnaire Date Thrive assessed: 01/27/23 JAC-7 AMB Questionnaire JAC-7 Date JAC - 7 assessed: 01/27/23 Source: Developed by Drs. Brian Medina, oTri Purvis, Eric Carrillo and colleagues, with an educational rommel from [employer]. Review of Systems Const All systems reviewed & are unremarkable except as noted in HPI and below Eyes Reports no additional complaints, Denies change in vision and Denies other visual disturbances Card Denies chest pain at rest, Denies chest pain with activity, Denies edema, Denies irregular heart rhythm, Denies claudication, Denies dyspnea, Denies dyspnea on exertion, Denies orthopnea, Denies paroxysmal nocturnal dyspnea and Denies slow heart rate Resp Denies cough, Denies dyspnea and Denies dyspnea on exertion GI Denies abdominal pain, Denies change in bowel habits, Denies excessive flatus, Denies nausea and Denies vomiting Denies urinary incontinence, Denies urinary hesitancy and Denies urinary urgency Musc Denies abnormal gait, Denies atrophy, Denies deformity and Denies limited range of motion Skin/Breast Denies bleeding lesions, Denies changing lesions and Denies rash Neuro Denies abnormal gait and Denies lack of coordination Physical exam (Primary Care) Vital Signs: Last Vital Signs BP 156/92 H 10/03/23 09:19 BMI result Body Mass Index 29.3 Tobacco/Smoking Status: Tobacco use Status Tobacco use date assessed 01/27/23 10/03/23 09:24 Patient Tobacco Use Status Never used Tobacco 10/03/23 09:24 e-Cigarette/Vaping Use Never Used 10/03/23 09:24 Thrive Assessment: Date of Thrive Assessment Date Thrive assessed 01/27/23 10/03/23 09:24 Const Orientation/consciousness: patient oriented x3 HENMT Head: Yes normal to inspection, Yes normocephalic and Yes atraumatic Ears: external ears normal Eyes General: appearance normal, both eyes and all related structures Eyelids: Yes eyelids normal Conjunctivae: conjunctivae normal Neck Neck: Yes normal visual inspection and Yes supple Resp Effort & Inspection: normal respiratory effort Auscultation: clear to auscultation bilaterally Cardio Jugular venous distension: no JVD Rate: regular rate Rhythm: regular rhythm Heart sounds: S1 normal heart sound present and S2 normal heart sound present GI Inspection: Yes normal to inspection Palpation (GI): Soft to palpation and nontender Auscultation: normal bowel sounds Skin General skin exam: no rashes or lesions noted Neuro General: patient oriented x3 and no focal motor deficits Extrem General: Yes full ROM Psych Appearance: grossly normal Assessment and Plan Assessment & Plan (1) Adult general medical exam: Code(s): Z00.00 - Encounter for general adult medical examination without abnormal find ings Plan: Repeat in a year. (2) Mild major depression: Code(s): F32.0 - Major depressive disorder, single episode, mild Plan: Continue fluoxetine. (3) Cerebral palsy: Comment: ambulatory-hesitant w/stairs, etc.-alert/oriented-signs own consents Code(s): G80.9 - Cerebral palsy, unspecified Qualifiers: Cerebral palsy type: other type Qualified Code(s): G80.8 - Other cerebral palsy Plan: Continue supervision 24 hours. Lives with safety deposit boxes custodian. Orders: Orders SARS-CoV2/FLU/RSV Today R09.89 - Other specified symptoms and signs involving the circulatory and respiratory systems Thyroid Stimulating Hormone 6 Months E03.9 - Hypothyroidism, unspecified Medications: New doxycycline hyclate 100 mg PO BID 5 days 10 tabs 0RF Coding Level of Care Code Est Pt Prev Care 40-64y(99411) Diagnoses Adult general medical exam Z00.00 Mild major depression F32.0 Other cerebral palsy G80.8 Cerebral palsy type: other type Time Spent (min) 33
== END 2023-10-03 09:41 | disposition home or self-care (01) ==
PROVIDERS: Visit Provider Internal Medicine
DX: Z00.00 Encounter for general adult medical examination without abnormal findings (principal); F32.0 Major depressive disorder, single episode, mild; G80.8 Other cerebral palsy
CPT/HCPCS: 99396

== ENCOUNTER 2023-10-03 09:49 | Outpatient (REF) | payer MEDICARE, MEDICAID, SELFPAY ==
[2023-10-03 13:03] LABS: Influenza A PCR NEGATIVE (Negative); Influenza B PCR NEGATIVE (Negative); Resp Syncy Virus RNA Qual PCR NEGATIVE (Negative); SARS COV2 PCR INHOUSE POSITIVE (Negative)
== END 2023-10-03 09:50 | disposition home or self-care (01) ==
LOC: HO.LAB 09:49
PROVIDERS: PCP Internal Medicine; Visit Provider Internal Medicine
DX: Z11.52 Encounter for screening for COVID-19 (principal); Z20.822 Contact with and (suspected) exposure to COVID-19; R09.89 Other specified symptoms and signs involving the circulatory and respiratory systems
CPT/HCPCS: 0241U

== ENCOUNTER 2023-11-01 08:16 | Outpatient (REF) | payer MEDICARE, MEDICAID, SELFPAY | END 2023-11-01 08:17 | disposition home or self-care (01) | LOC: HO.MAMMO 08:16 | PROVIDERS: PCP Internal Medicine; Visit Provider Internal Medicine | DX: Z12.31 Encounter for screening mammogram for malignant neoplasm of breast (principal) | CPT/HCPCS: 77063; 77067 ==

== ENCOUNTER → 2023-11-01 08:30 | Outpatient (BNV) | payer MEDICARE, MEDICAID, SELFPAY | PROVIDERS: PCP Internal Medicine; Visit Provider Radiology Diagnostic Radiology | DX: Z12.31 Encounter for screening mammogram for malignant neoplasm of breast (principal) | CPT/HCPCS: 77063; 77067 ==

== ENCOUNTER 2023-12-18 16:21 | Outpatient (AMB) | payer MEDICARE, MEDICAID, SELFPAY ==
[2023-12-18 16:25] VITALS: BP 114/68; PULSE 87; BMI 29.2
--- NOTE | 2023-12-18 16:25 | MHC.OFFVIS ---
Intake Vital Signs 12/18/23 16:25 Height 5 ft 5.24 in Weight 176 lb 9.444 oz BMI 29.2 BP 114/68 Blood Pressure Location Lt brachial Position Sitting Pulse 87 Pulse Source Pulse Oximeter Intake Visit Reasons: Osteoporosis-confirmed Intake Note: Patient presents today for Osteoporosis follow up visit. Training Technician Required: No Accompanied by: Caregiver Allergies Seasonal Allergies Allergy (Mild, Verified 12/18/23 16:28) itchy Medication List - Last Reconciled 12/18/23 by Brian Elena MD calcipotriene 0.005% 1 appl topical DAILY calcium citrate 250 mg PO QAM cetirizine (Zyrtec) 10 mg PO DAILY PRN chlorhexidine gluconate 0.12% PO cholecalciferol (vitamin D3) 25 mcg PO DAILY 90 days denosumab (Prolia) 60 mg subcut [id number] 1 day fluoxetine 10 mg PO DAILY 90 days [incontinence pads As directed] ketoconazole 2% 1 appl topical BID levothyroxine 112 mcg PO DAILY 30 days lorazepam 0.5 mg PO DAILY PRN 30 days nirmatrelvir-ritonavir 300 mg (150 mg x 2)-100 mg (Paxlovid) 3 ea PO PER PKG DIR 5 days norethindrone ac-eth estradiol 1-20 mg-mcg (Junel) tabs PO DAILY triamcinolone acetonide 0.1% 1 appl topical DAILY HPI HPI Comments History of Present Illness Details 48 YO Female with cerebral palsy who is seen in F/U today for postoperative hypothyroidism as well as Osteoporosis. The patient last saw Dr. Barber on 08/09/2021 1. Postoperative Hypothyroidism: The patient was initially referred to me for multinodular thyroid. She had a thyroid US revealing multiple bilateral large thyroid nodules, 7 of which required FNA biopsy. She also was found to have subclinical hyperthyroidism with uptake and scan revealing multiple cold nodules. She and her mother opted for total thyroidectomy, which was completed at [facility] by Dr. Shankar 03/12/19. Official pathology was benign. She had no issues with hypocalcemia postoperatively. She has remained on weight based Levothyroxine 100 mcg PO daily, which she takes correctly first thing in the morning on an empty stomach. She denies any symptoms of hyper or hypothyroidism. TSH has remained WNL. Vitamin D has remained WNL and she is using Calcium carbonate 600 mg PO once daily, in addition to 2 servings of dairy per day. 2. Osteoporosis: First diagnosed approximately 2013. DXA was ordered on that time due to her being on Depoprovera for 5 years. She had DXA 2016 which revealed Osteoporosis. She was started on Fosamax weekly, this was continued for approximately 2 years, and was stopped mid 2018 as she was unable to have refill sent from PCP. She tolerated fosamax well. She had DXA completed mid 2017 which revealed severe Osteoporosis of the spine and Osteoporosis of the hip. She had an unremarkable workup for secondary causes of Osteoporosis. She was started on Prolia. She has received 5 doses so far, 12/26/18, 06/24/19, 12/25/2019, 07/20/2020 and 01/22/2021. She tolerated this well. She is here today to receive her 6th dose. No history of pathologic fracture or ONJ. Has 2 servings of dietary calcium per day in the form of milk and yogurt. Also takes Calcium Citrate 250 mg PO daily. Does not take Vitamin D. Denies ever using PPI, anticoagulant, antiepileptic or glucocorticoid medication. Does weight bearing exercise 1 day per week in the form of group exercise class such as [place]. In the warmer months she walks daily. Fracture history: No history of atraumatic fracture. Had broken a toe in the past. 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 Used Depoprovera injection and was amenorrhic due to this for 5 years. Off Depo for 2.5 years. Menses has resumed and is now regular. . History of Kidney stones: Denies. Family history of Osteoporosis or hip fracture. Unsure of her family history. UTD on dental cleanings and sees dentist every 6 months. No planned upcoming dental work or extractions. DXA dated 05/27/2020: FINDINGS: AP SPINE L1-L4: Current: BMD 0.695 g/cm2, T-score -4.0, Z-score -4.6, Z-score below expected range for age, 9.1% increase from baseline (<5% change is not significant). Baseline: BMD 0.637 g/cm2. LEFT FEMUR, NECK: Current: BMD 0.571 g/cm2, T-score -3.4, Z-score -3.2, Z-score below expected range for age. Baseline: BMD 0.559 g/cm2. LEFT FEMUR, TOTAL: Current: BMD 0.663 g/cm2, T-score -2.7, Z-score -2.9, Z-score below expected range for age, 6.8% increase from baseline (<5% change is not significant). Baseline: BMD 0.621 g/cm2. Labs: Laboratory Tests 08/03/21 08/03/21 15:06 15:06 Creatinine 0.83 Estimated GFR > 60 Phosphorus 4.5 25-OH Vitamin D To taryn 59.1 TSH 1.57 Free T4 1.10 PTH Intact 20 Calcium (PTH Intac t) 9.5 On Prolia fro 4 yrs . No fx since last visit PFSH Medical History Dysphagia Lump in neck Anxiety COVID-19 vaccine administered Cerebral palsy Vitamin D deficiency Osteoporosis Foot pain Psoriasis Hypothyroidism Surgical History Hx of cataract removal with insertion of prosthetic lens History of surgery Hx of oral surgery H/O thyroidectomy Family History Father No problems noted. Mother Cancer Brother No problems noted. 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 She appears to be clinically biochemically euthyroid. Plan is to continue the current therapy. In Terms of the thyroid at this point, patient returned to the care of her primary care provider and returned back to endocrinology as needed (2) Osteoporosis: Code(s): M81.0 - Age-related osteoporosis without current pathological fracture Qualifiers: Osteoporosis type: unspecified Presence of current pathological fracture: unspecified Qualified Code(s): M81.0 - Age-related osteoporosis without current pathological fracture Plan: 48-year-old female with a history of osteoporosis with negative secondary workup currently being treated with Prolia. Plan is to continue the Prolia. Will recheck DEXA bone density of hip and spine. Orders: Orders Basic Metabolic Panel Today M81.0 - Age-related osteoporosis without current pathological fracture Calcium Today M81.0 - Age-related osteoporosis without current pathological fracture Albumin Level Today M81.0 - Age-related osteoporosis without current pathological fracture Coding Level of Care Code Est Pt Level 3 (92115) Diagnoses Acquired hypothyroidism E03.9 Hypothyroidism type: acquired Osteoporosis, unspecified osteoporosis type, unspecified pathological fracture presence M81.0 Osteoporosis type: unspecified Presence of current pathological fracture: unspecified
== END 2023-12-18 16:40 | disposition home or self-care (01) ==
PROVIDERS: PCP Internal Medicine; Visit Provider Internal Medicine Endocrinology, Diabetes & Metabolism
DX: E03.9 Hypothyroidism, unspecified (principal); M81.0 Age-related osteoporosis without current pathological fracture
CPT/HCPCS: 99213

== ENCOUNTER → 2023-12-18 16:21 | Outpatient (BNVA) | payer MEDICARE, MEDICAID, SELFPAY | PROVIDERS: PCP Internal Medicine; Visit Provider Internal Medicine Endocrinology, Diabetes & Metabolism | DX: M81.0 Age-related osteoporosis without current pathological fracture (principal); E03.9 Hypothyroidism, unspecified | CPT/HCPCS: 99212 ==

== ENCOUNTER 2024-01-03 15:56 | Outpatient (REF) | payer MEDICARE, MEDICAID, SELFPAY ==
[2024-01-03 17:56] LABS: Albumin Level 3.8 g/dL (3.5-5.0); Anion Gap 12 (12-20); Blood Urea Nitrogen 22 mg/dL (9-16); Calcium 8.9 mg/dL (8.4-10.2); Carbon Dioxide 22 mmol/L (22-29); Chloride 108 mmol/L (96-108); Estimated Glomerular Filt Rate > 60; Glucose Random 140 mg/dL (60-115); Potassium 3.9 mmol/L (3.3-5.1); Sodium 138 mmol/L (135-145)
[2024-01-03 18:19] LABS: Thyroid Stimulating Hormone 0.12 uIU/mL (0.32-4.0)
== END 2024-01-03 15:57 | disposition home or self-care (01) ==
LOC: HO.LAB 15:56
PROVIDERS: PCP Internal Medicine; Visit Provider Internal Medicine Endocrinology, Diabetes & Metabolism
DX: M81.0 Age-related osteoporosis without current pathological fracture (principal); E55.9 Vitamin D deficiency, unspecified; E03.9 Hypothyroidism, unspecified
CPT/HCPCS: 36415; 80048; 82040; 84443

== ENCOUNTER 2024-01-17 08:54 | Outpatient (REF) | payer MEDICARE, MEDICAID, SELFPAY ==
--- NOTE | ~2024-01-17 | MM_ITS ---
EXAMINATION: BONE DENSITOMETRY CLINICAL INDICATION: Age-related osteoporosis without current pathological fracture. COMPARISON: Previous BD dated 05/27/2020 and baseline BD dated 05/22/2018. TECHNIQUE: Using a [employer] DXA System (software version: 13.1) manufactured by [employer], dual-energy x-ray absorptiometry was performed of the lumbar spine and left hip. The images are of good technical quality. Summary results are attached. FINDINGS: LEFT FEMUR, NECK: Current: BMD 0.601 g/cm2, Z-score -2.7, T-score -3.1, osteoporosis. Prior: BMD 0.571 g/cm2. Baseline: BMD 0.559 g/cm2. LEFT FEMUR, TOTAL: Current: BMD 0.653 g/cm2, Z-score -2.7, T-score -2.8, osteoporosis, 1.5% decrease from previous, 5.2% increase from baseline (<5% change is not significant). Prior: BMD 0.663 g/cm2. Baseline: BMD 0.621 g/cm2. AP SPINE L1-L3 (excluding L4): The data of L1-L4 has been changed to exclude the L4 vertebral body, because degenerative sclerosis at this level may cause overestimation of lumbar spine density. Current: BMD 0.701 g/cm2, Z-score -4.1, T-score -3.9, osteoporosis, 8.7% increase from previous, 11.8% increase from baseline (<5% change is not significant). Prior: BMD 0.645 g/cm2. Baseline: BMD 0.627 g/cm2. IDENTIFIED RISK FACTORS: Osteoporosis, history of fracture (adult). HISTORY OF FRACTURE: Spine. MEDICATIONS: Calcium or multivitamin. Vitamin D, ERT/SERMS. MM/XR DEXA axial skeleton IMPRESSION: 1. DIAGNOSIS: Severe osteoporosis based on the lowest T-score value of -3.9 in the lumbar spine and history of fracture of spine applying World Health Organization criteria. 2. 10-YEAR FRACTURE RISK PREDICTION, FRAX: According to the guidelines, FRAX calculation should only be performed on patients in the osteopenia bone density category. Therefore, FRAX was not performed on this patient. 3. Treatment Recommendations: NOF guidelines recommend consideration for treatment in postmenopausal women and men age 50 and older presenting with the following: -A hip or vertebral (clinical or morphometric) fracture. -T-score less than or equal to -2.5 at the femoral neck or spine after appropriate evaluation to exclude secondary causes. -Low bone mass at the hip or spine and a 10-year fracture probability by FRAX of greater than or equal to 3% for hip fracture or greater than or equal to 20% for major osteoporotic fracture based on the [place] adapted WHO algorithm. 4. Other Recommendations: All treatment decisions require clinical judgment and consideration of individual patient factors, including patient preferences, comorbidities, previous drug use, risk factors not captured in the FRAX model (e.g. frailty, falls, vitamin D deficiency, increased bone turnover, interval significant decline in bone density) and possible under or overestimation of fracture risk by FRAX. Additional medical evaluation for secondary cause of low bone mineral density may be appropriate. FUTURE SCAN RECOMMENDATION: People with diagnosed cases of osteoporosis or at high risk for fracture should have regular bone mineral density tests. For patients eligible for Medicare, routine testing is allowed once every 2 years. The testing frequency can be increased to one year for patients who have rapidly progressing disease, those who are receiving or discontinuing medical therapy to restore bone mass, or have additional risk factors.
== END 2024-01-17 08:55 | disposition home or self-care (01) ==
LOC: HO.MAMMO 08:54
PROVIDERS: PCP Internal Medicine; Visit Provider Internal Medicine Endocrinology, Diabetes & Metabolism
DX: Z13.820 Encounter for screening for osteoporosis (principal); M81.0 Age-related osteoporosis without current pathological fracture
CPT/HCPCS: 77080

== ENCOUNTER 2024-02-16 15:47 | Outpatient (REF) | payer MEDICARE, MEDICAID, SELFPAY ==
[2024-02-16 17:41] LABS: Albumin Level 3.7 g/dL (3.5-5.0); Calcium 9.1 mg/dL (8.4-10.2)
[2024-02-16 18:03] LABS: Thyroid Stimulating Hormone 0.39 uIU/mL (0.32-4.0)
== END 2024-02-16 15:48 | disposition home or self-care (01) ==
LOC: HO.LAB 15:47
PROVIDERS: Internal Medicine Endocrinology, Diabetes & Metabolism; PCP Internal Medicine; Visit Provider Internal Medicine
DX: M81.0 Age-related osteoporosis without current pathological fracture (principal); E03.9 Hypothyroidism, unspecified; E55.9 Vitamin D deficiency, unspecified
CPT/HCPCS: 36415; 82040; 82310; 84443

== ENCOUNTER 2024-03-06 08:20 | Outpatient (REF) | payer MEDICARE, MEDICAID, SELFPAY ==
[2024-03-06 09:41] LABS: Anion Gap 13 (12-20); Blood Urea Nitrogen 16 mg/dL (9-16); Calcium 9.2 mg/dL (8.4-10.2); Carbon Dioxide 24 mmol/L (22-29); Chloride 107 mmol/L (96-108); Estimated Glomerular Filt Rate > 60; Glucose Random 77 mg/dL (60-115); Potassium 3.9 mmol/L (3.3-5.1); Sodium 140 mmol/L (135-145)
== END 2024-03-06 08:21 | disposition home or self-care (01) ==
LOC: HO.LAB 08:20
PROVIDERS: PCP Internal Medicine; Visit Provider Internal Medicine Endocrinology, Diabetes & Metabolism
DX: M81.0 Age-related osteoporosis without current pathological fracture (principal)
CPT/HCPCS: 36415; 80048

== ENCOUNTER 2024-03-11 15:54 | Outpatient (AMB) | payer MEDICARE, MEDICAID, SELFPAY ==
--- NOTE | 2024-03-11 16:10 | AM.OFFVISNUR ---
Intake Intake Visit Reasons: Prolia Allergies Seasonal Allergies Allergy (Mild, Verified 12/18/23 16:28) itchy Office Meds Prolia 60 mg/mL subcutaneous syringe Performing Provider: Brian Elena MD [place] [facility] Administered by: Sondra Jay RN on 03/11/24 16:10 Dose Route Admin Location Dispensed Lot Number Expiration Date [employer] 60 mg subcut 1 mL [id number] 07/06/26 42913-347-85 [facility] Comments: Pt consent form signed, pt tolerated well Coding Assessment & Plan Assessment & Plan Orders: Orders AMB Denosumab Injection Patient Supplied Today M81.0 - Age-related osteoporosis without current pathological fracture Medications: New Prolia (denosumab) 60 mg subcut ONCE 1 mL 0RF NS M81.0 - Age-related osteoporosis without current pathological fracture
== END 2024-03-11 16:11 | disposition home or self-care (01) ==
PROVIDERS: PCP Internal Medicine; Visit Provider Internal Medicine Endocrinology, Diabetes & Metabolism
DX: M81.0 Age-related osteoporosis without current pathological fracture (principal)

== ENCOUNTER → 2024-03-11 15:54 | Outpatient (BNVA) | payer MEDICARE, MEDICAID, SELFPAY | PROVIDERS: PCP Internal Medicine; Visit Provider Internal Medicine Endocrinology, Diabetes & Metabolism | DX: M81.0 Age-related osteoporosis without current pathological fracture (principal); Z79.620 Long term (current) use of immunosuppressive biologic | CPT/HCPCS: 96372; J0897 ==

== ENCOUNTER 2024-04-08 08:13 | Outpatient (AMB) | payer MEDICARE, MEDICAID, SELFPAY ==
--- NOTE | 2024-04-08 08:25 | A.OFFPC_ITS ---
Vital Signs 04/08/24 08:26 Height 5 ft 5.24 in Weight 169 lb BMI 27.9 BP 114/82 Blood Pressure Location Lt brachial Position Sitting Intake Visit Reasons: bp Intake Note: Patient here for a follow up BP Logistics Management Specialist Required: No Accompanied by: manager supplier Allergies Seasonal Allergies Allergy (Mild, Verified 04/08/24 08:31) itchy Medication List - Last Reconciled 04/08/24 by Kellie Phillips MD calcipotriene 0.005% 1 appl topical DAILY calcium citrate 250 mg PO QAM cetirizine (Zyrtec) 10 mg PO DAILY PRN chlorhexidine gluconate 0.12% PO cholecalciferol (vitamin D3) 25 mcg PO DAILY 90 days denosumab (Prolia) 60 mg subcut [id number] 1 day fluoxetine 10 mg PO DAILY 90 days [incontinence pads As directed] ketoconazole 2% 1 appl topical BID levothyroxine 100 mcg PO DAILY 90 days lorazepam 0.5 mg PO DAILY PRN 30 days norethindrone ac-eth estradiol 1-20 mg-mcg (Junel) tabs PO DAILY triamcinolone acetonide 0.1% 1 appl topical DAILY Tobacco use date assessed: 04/08/24 Dental Screening Dental Screen Date: 04/08/24 Did you have a dental visit in the last 12 months?: Yes Did you have a dental problem in the last 6 months where you did not have access to dental care?: No Was dental information given to patient?: Patient has dentist HPI HPI Comments History of Present Illness Details This is a 49-year-old female with mild major depression, cerebral palsy, allergic rhinitis, hypothyroidism and severe osteoporosis that comes today accompanied by house staff for follow-up on her conditions. Depression is well control with fluoxetine and follows once a month with counseling. Has cerebral palsy but is able to ambulate with no assistive device. Has seasonal allergic rhinitis due to pollen and I recommend to use cetirizine twice a day. She was also referred to an sales representative electric service. Last TSH was normal. Last DEXA scan shows severe osteoporosis and is on Prolia and this is follow by Endocrinology. No chest pain or shortness on breath. [facility] Medical History (Updated 04/08/24 @ 09:01 by Kellie Phillips MD) Dysphagia Lump in neck Anxiety COVID-19 vaccine administered Cerebral palsy Vitamin D deficiency Osteoporosis Foot pain Psoriasis Hypothyroidism Surgical History Hx of cataract removal with insertion of prosthetic lens History of surgery Hx of oral surgery H/O thyroidectomy Family History Father No problems noted. Mother Cancer Brother No problems noted. Social History Household Members Other:: shared living via [employer] Housing: House Are you a primary family day care provider to a significant other at home: No Do you presently have visiting nurse or other home services: Yes (lives in shared living) Alcohol intake: current Alcohol intake frequency: holidays/special occasions only Alcohol type: beer Patient Tobacco Use Status: Never used Tobacco e-Cigarette/Vaping Use: Never Used Second Hand Smoke Exposure: No Advance Directives Date on File: 05/24/21 service: No Current occupational status: employed and disabled Current occupation: [employer] Cognitive needs: No Hearing needs: No Vision needs: No Questionnaire PHQ-9 Over the last 2 weeks, how often have you been bothered by any of the following problems? 1. Little interest or pleasure in doing things: not at all 2. Feeling down, depressed, or hopeless: not at all 3. Trouble falling or staying asleep, or sleeping too much: not at all 4. Feeling tired or having little energy: not at all 5. Poor appetite or overeating: not at all 6. Feeling bad about yourself - or that you are a failure or have let yourself or your family down: not at all 7. Trouble concentrating on things, such as reading the newspaper or watching television: not at all 8. Moving or speaking so slowly that other people could have noticed. Or the opposite - being so fidgety or restless that you have been moving around a lot more than usual: not at all 9. Thoughts that you would be better off or of hurting yourself in some way: not at all Total score: 0 Depression Screening Interpretation: Positive Depression Screening Follow-up: Existing condition, In treatment, Community Mental Health Worker F/U and Follow- up Visit Requested Depression Screening Done: Yes 51369 - PHQ-9 Billing: Yes Source: Developed by Drs. Brian Medina, Tori Purvis, Eric Carrillo and colleagues, with an educational rommel from [employer]. Thrive Questionnaire Date Thrive assessed: 04/08/24 I am a: Parent/Caregiver What is your living situation today?: I have a steady place to live Within the past 12 months, did the food you bought not last and you didn't have the money to get more?: Never true Within the past 12 months, did you worry whether your food would run out before you got money to buy more?: Never true Do you have trouble paying for medicines?: No Do you have trouble getting transportation to medical appointments?: No Do you have trouble paying your heating and electricity bill?: No Do you have trouble taking care of your child, family member or friend?: No Do you have trouble with day-to-day activities such as bathing, preparing meals, shopping, managing finances, etc.?: No Are you currently unemployed and looking for a job?: No Are you interested in more education?: No Please select the resources that you would like help with: None Currently or been in a relationship where the following occur: no concerns reported THRIVE Score: 0 AUDIT C Alcohol Use Questionnaire (AUDIT-C) 1. How often do you have a drink containing alcohol?: Monthly or less 2. How many drinks containing alcohol do you have on a typical day when you are drinking?: 1 or 2 3. How often do you have six or more drinks on one occasion?: Never Total Score: 1 JAC-7 AMB Questionnaire JAC-7 Date JAC - 7 assessed: 04/08/24 Feeling nervous, anxious, or on edge: 0 = Not at all Not being able to stop or control worryin = Not at all Worrying too much about different things: 0 = Not at all Trouble relaxin = Not at all Being so restless that it is hard to sit still: 0 = Not at all Becoming easily annoyed or irritable: 0 = Not at all Feeling afraid as if something awful might happen: 0 = Not at all Total JAC-7 score (0-4 normal; 5-9 mild; 10-14 moderate; 15-21 severe): 0 Source: Developed by Drs. Brian Medina, Tori Purvis, Eric Carrillo and colleagues, with an educational rommel from [employer]. JAC-7 Assessment Billing JAC-7 Assessment Tool: JAC-7 Assessment 00640 Review of Systems Const All systems reviewed & are unremarkable except as noted in HPI and below Card Denies chest pain at rest, Denies chest pain with activity, Denies edema, Denies irregular heart rhythm, Denies claudication, Denies dyspnea, Denies dyspnea on exertion, Denies orthopnea, Denies paroxysmal nocturnal dyspnea and Denies slow heart rate Resp Denies cough, Denies dyspnea and Denies dyspnea on exertion GI Denies abdominal pain, Denies change in bowel habits, Denies excessive flatus, Denies nausea and Denies vomiting Denies urinary incontinence, Denies urinary hesitancy and Denies urinary urgency Physical exam (Primary Care) Vital Signs: Last Vital Signs BP 114/82 04/08/24 08:26 BMI result Body Mass Index 27.9 Tobacco/Smoking Status: Tobacco use Status Tobacco use date assessed 01/27/23 10/03/23 09:24 Patient Tobacco Use Status Never used Tobacco 10/03/23 09:24 e-Cigarette/Vaping Use Never Used 10/03/23 09:24 Depression Screening Interpretation: Positive Depression Screening Follow-up: Existing condition, In treatment, Community Mental Health Worker F/U and Follow- up Visit Requested Thrive Assessment: Date of Thrive Assessment Date Thrive assessed 01/27/23 10/19/23 09:21 Currently or been in a relationship where the following occur: no concerns reported Resp Effort & Inspection: normal respiratory effort Auscultation: clear to auscultation bilaterally Cardio Jugular venous distension: no JVD Rate: regular rate Rhythm: regular rhythm Heart sounds: S1 normal heart sound present and S2 normal heart sound present Extrem General: Yes full ROM Assessment and Plan Assessment & Plan (1) Mild major depression: Code(s): F32.0 - Major depressive disorder, single episode, mild Plan: Continue fluoxetine. Continue counseling. (2) Allergic rhinitis: Code(s): J30.9 - Allergic rhinitis, unspecified Qualifiers: Allergic rhinitis trigger: pollen Allergic rhinitis seasonality: seasonal Qualified Code(s): J30.1 - Allergic rhinitis due to pollen Plan: Increase cetirizine to 10 mg twice a day. Referred to sales representative electric service. (3) Hypothyroidism: Code(s): E03.9 - Hypothyroidism, unspecified Qualifiers: Hypothyroidism type: acquired Qualified Code(s): E03.9 - Hypothyroidism, unspecified Plan: Continue levothyroxine. Monitor TSH. (4) Osteoporosis: Code(s): M81.0 - Age-related osteoporosis without current pathological fracture Qualifiers: Osteoporosis type: unspecified Presence of current pathological fracture: unspecified Qualified Code(s): M81.0 - Age-related osteoporosis without current pathological fracture Plan: Continue Prolia. Follow-up with endocrinology. (5) Cerebral palsy: Comment: ambulatory-hesitant w/stairs, etc.-alert/oriented-signs own consents Code(s): G80.9 - Cerebral palsy, unspecified Qualifiers: Cerebral palsy type: other type Qualified Code(s): G80.8 - Other cerebral palsy Plan: Ambulate with no assistive device. Orders: Orders Comprehensive [place]. Panel Fast 5 Months J30.2 - Other seasonal allergic rhinitis Vitamin D 25-OH Total 5 Months E55.9 - Vitamin D deficiency, unspecified Thyroid Stimulating Hormone 5 Months E03.9 - Hypothyroidism, unspecified Lipid Panel 5 Months E78.5 - Hyperlipidemia, unspecified Referrals Allergy & Immunology Referral J30.9 - Allergic rhinitis, unspecified Medications: Changed From cetirizine (Zyrtec) 10 mg PO DAILY PRN 30 tabs 1RF allergy symptoms J30.2 - Other seasonal allergic rhinitis To cetirizine (Zyrtec) 10 mg PO BID 30 days PRN 30 tabs 1RF allergy symptoms J30.2 - Other seasonal allergic rhinitis Coding Level of Care Code Est Pt Level 4 (99275) Complex EM visit Add On G2211 Diagnoses Mild major depression F32.0 Seasonal allergic rhinitis due to pollen J30.1 Allergic rhinitis trigger: pollen Allergic rhinitis seasonality: seasonal Acquired hypothyroidism E03.9 Hypothyroidism type: acquired Osteoporosis, unspecified osteoporosis type, unspecified pathological fracture presence M81.0 Osteoporosis type: unspecified Presence of current pathological fracture: unspecified Other cerebral palsy G80.8 Cerebral palsy type: other type Additional Codes JAC-7 Assessment Billing - JAC-7 Assessment Tool: JAC-7 Assessment 11657 ([id number]) Time Spent (min) 23
[2024-04-08 08:26] VITALS: BP 114/82; BMI 27.9
== END 2024-04-08 08:42 | disposition home or self-care (01) ==
PROVIDERS: PCP Internal Medicine; Visit Provider Internal Medicine
DX: G80.8 Other cerebral palsy (principal); F32.0 Major depressive disorder, single episode, mild; J30.1 Allergic rhinitis due to pollen; E03.9 Hypothyroidism, unspecified; M81.0 Age-related osteoporosis without current pathological fracture
CPT/HCPCS: 99214; G2211

== ENCOUNTER 2024-04-09 15:53 | Outpatient (AMB) | payer MEDICARE, MEDICAID, SELFPAY ==
[2024-04-09 15:57] VITALS: BP 120/62; PULSE 72; TEMP 36.6; O2SAT 97
--- NOTE | 2024-04-09 15:57 | AM.OFFWIN_ITS ---
Intake Vital Signs 04/09/24 15:57 Height 5 ft 5 in BP 120/62 Blood Pressure Location Rt brachial Position Sitting Pulse 72 Pulse Source Pulse Oximeter Temp 97.8 F Temp Source Oral Pulse Oximetry (%) 97 Oxygen Delivery Method Room Air Intake Visit Reasons: EP eye concern Intake Note: pt is here for bilateral eye redness due to sunscreen getting in her eyes Patient Tobacco Use Status: Never used Tobacco Allergies Seasonal Allergies Allergy (Mild, Verified 04/09/24 16:14) itchy Medication List - Last Reconciled 04/09/24 by Raman Hernandez MD calcipotriene 0.005% 1 appl topical DAILY calcium citrate 250 mg PO QAM cetirizine (Zyrtec) 10 mg PO BID PRN 30 days chlorhexidine gluconate 0.12% PO cholecalciferol (vitamin D3) 25 mcg PO DAILY 90 days denosumab (Prolia) 60 mg subcut [id number] 1 day fluoxetine 10 mg PO DAILY 90 days [incontinence pads As directed] ketoconazole 2% 1 appl topical BID levothyroxine 100 mcg PO DAILY 90 days lorazepam 0.5 mg PO DAILY PRN 30 days norethindrone ac-eth estradiol 1-20 mg-mcg (Junel) tabs PO DAILY triamcinolone acetonide 0.1% 1 appl topical DAILY Do you need a note to return to daycare/school/sports/work: No HPI EP eye concern HPI Details 49-year-old female presents to the offic e for a sick visit. [facility]. The retail store assistant with the patient reports, after a nap patient was complaining of discomfort and burning sensation in both eyes. There was some tearing. Vision is normal. [facility] Medical History Dysphagia Lump in neck Anxiety COVID-19 vaccine administered Cerebral palsy Vitamin D deficiency Osteoporosis Foot pain Psoriasis Hypothyroidism Surgical History Hx of cataract removal with insertion of prosthetic lens History of surgery Hx of oral surgery H/O thyroidectomy Family History Father No problems noted. Mother Cancer Brother No problems noted. Social History Household Members Other:: shared living via [employer] Housing: House Are you a primary career development coordinator to a significant other at home: No Do you presently have visiting nurse or other home services: Yes (lives in shared living) Alcohol intake: current Alcohol intake frequency: holidays/special occasions only Alcohol type: beer Patient Tobacco Use Status: Never used Tobacco e-Cigarette/Vaping Use: Never Used Second Hand Smoke Exposure: No Advance Directives Date on File: 05/24/21 service: No Current occupational status: employed and disabled Current occupation: [employer] Cognitive needs: No Hearing needs: No Vision needs: No Physical Exam Vital Signs: Last Vital Signs Temp 97.8 F 04/09/24 15:57 Pulse 72 04/09/24 15:57 BP 120/62 04/09/24 15:57 Pulse Ox 97 04/09/24 15:57 Oxygen Delivery Method Room Air 04/09/24 15:57 Eyes Other: Mild congestion in both eyes. Assessment & Plan Assessment & Plan (1) Allergic conjunctivitis: Code(s): H10.10 - Acute atopic conjunctivitis, unspecified eye Plan: Eyedrops ordered. Take it twice a day. If symptoms not better to follow-up here Coding Level of Care Code Est Pt Level 3 (01031) Diagnoses Allergic conjunctivitis H10.10
== END 2024-04-09 16:25 | disposition home or self-care (01) ==
PROVIDERS: PCP Internal Medicine; Visit Provider Internal Medicine
DX: H10.10 Acute atopic conjunctivitis, unspecified eye (principal)
CPT/HCPCS: 99213

== ENCOUNTER 2024-04-17 16:20 | Outpatient (REF) | payer MEDICARE, MEDICAID, SELFPAY ==
[2024-04-17 19:16] LABS: Calcium 9.4 mg/dL (8.4-10.2)
[2024-04-17 19:38] LABS: Thyroid Stimulating Hormone 0.79 uIU/mL (0.32-4.0)
== END 2024-04-17 16:21 | disposition home or self-care (01) ==
LOC: HO.LAB 16:20
PROVIDERS: Absent Provider Internal Medicine; PCP Internal Medicine; Visit Provider Internal Medicine Endocrinology, Diabetes & Metabolism
DX: M81.0 Age-related osteoporosis without current pathological fracture (principal); E03.9 Hypothyroidism, unspecified
CPT/HCPCS: 36415; 82310; 84443

== ENCOUNTER 2024-06-24 16:08 | Outpatient (AMB) | payer MEDICARE, MEDICAID, SELFPAY ==
[2024-06-24 16:14] VITALS: BP 124/78; PULSE 65; BMI 29.0
--- NOTE | 2024-06-24 16:14 | A.OFFVIS_ITS ---
Vital Signs 06/24/24 16:14 Height 5 ft 5 in Weight 174 lb 2.643 oz BMI 29.0 BP 124/78 Blood Pressure Location Rt brachial Position Sitting Pulse 65 Pulse Source Pulse Oximeter Intake Visit Reasons: Osteoporosis Intake Note: Patient present today for Osteoporosis follow up visit. Home Supervisor Required: No Allergies Seasonal Allergies Allergy (Mild, Verified 06/24/24 16:17) itchy HPI Comments Details: 49 YO Female with cerebral palsy who is seen in F/U today for postoperative hypothyroidism as well as Osteoporosis. The patient last saw Dr. Barber on 08/09/2021 Vitamin D has remained WNL and she is using Calcium carbonate 600 mg PO once daily, in addition to 2 servings of dairy per day. 2. Osteoporosis: First diagnosed approximately 2013. DXA was ordered on that time due to her being on Depoprovera for 5 years. She had DXA 2017 which revealed Os teoporosis. She was started on Fosamax weekly, this was continued for approximately 2 years, and was stopped mid 2017 as she was unable to have refill sent from PCP. She tolerated fosamax well. She had DXA completed mid 2017 which revealed severe Osteoporosis of the spine and Osteoporosis of the hip. She had an unremarkable workup for secondary causes of Osteoporosis. She was started on Prolia. She has received 5 doses so far, 12/26/18, 06/24/19, 12/25/2019, 07/20/2020 and 01/22/2021. She tolerated this well. She is here today to receive her 6th dose. No history of pathologic fracture or ONJ. Has 2 servings of dietary calcium per day in the form of milk and yogurt. Also takes Calcium Citrate 250 mg PO daily. Does not take Vitamin D. Denies ever using PPI, anticoagulant, antiepileptic or glucocorticoid medication. Does weight bearing exercise 1 day per week in the form of group exercise class such as [employer]. In the warmer months she walks daily. Fracture history: No history of atraumatic fracture. Had broken a toe in the past. Height loss: Denies LINE OUT MAN history: Menarche atage 15, menses always regular but heavy. Used Depoprovera injection and was amenorrhic due to this for 5 years. Off Depo for 2.5 years. Menses has resumed and is now regular. . History of Kidney stones: Denies. Family history of Osteoporosis or hip fracture. Unsure of her family history. UTD on dental cleanings and sees dentist every 6 months. No planned upcoming dental work or extractions. DXA dated 05/27/2020: FINDINGS: AP SPINE L1-L4: Current: BMD 0.695 g/cm2, T-score -4.0, Z-score -4.6, Z-score below expected range for age, 9.1% increase from baseline (<5% change is not significant). Baseline: BMD 0.637 g/cm2. LEFT FEMUR, NECK: Current: BMD 0.571 g/cm2, T-score -3.4, Z-score -3.2, Z-score below expected range for age. Baseline: BMD 0.559 g/cm2. LEFT FEMUR, TOTAL: Current: BMD 0.663 g/cm2, T-score -2.7, Z-score -2.9, Z-score below expected range for age, 6.8% increase from baseline (<5% change is not significant). Baseline: BMD 0.621 g/cm2. Labs: Laboratory Tests 08/03/21 08/03/21 15:06 15:06 Creatinine 0.83 Estimated GFR > 60 Phosphorus 4.5 25-OH Vitamin D Total 59.1 TSH 1.57 Free T4 1.10 PTH Intact 20 Calcium (PTH Intact) 9.5 On Prolia fro 4 yrs . No fx since last visit PFSH Medical History Dysphagia Lump in neck Anxiety COVID-19 vaccine administered Cerebral palsy Vitamin D deficiency Osteoporosis Foot pain Psoriasis Hypothyroidism Surgical History Hx of cataract removal with insertion of prosthetic lens History of surgery Hx of oral surgery H/O thyroidectomy Family History Father No problems noted. Mother Cancer Brother No problems noted. Social History Household Members Other:: shared living via [employer] Housing: House Are you a primary care team assistant to a significant other at home: No Do you presently have visiting nurse or other home services: Yes (lives in shared living) Alcohol intake: current Alcohol intake frequency: holidays/special occasions only Alcohol type: beer Patient Tobacco Use Status: Never used Tobacco e-Cigarette/Vaping Use: Never Used Second Hand Smoke Exposure: No Advance Directives Date on File: 05/24/21 service: No Current occupational status: employed and disabled Current occupation: [employer] Cognitive needs: No Hearing needs: No Vision needs: No Physical Exam Vital Signs: Last Vital Signs Pulse 65 06/24/24 16:14 BP 124/78 06/24/24 16:14 BMI result Body Mass Index 29.0 Assessment & Plan Assessment & Plan (1) Osteoporosis: Code(s): M81.0 - Age-related osteoporosis without current pathological fracture Category: Medical Qualifiers: Osteoporosis type: unspecified Presence of current pathological fracture: unspecified Qualified Code(s): M81.0 - Age-related osteoporosis without current pathological fracture Plan: 48-year-old female with a history of osteoporosis with negative secondary workup currently being treated with Prolia. Plan is to continue the Prolia. Would continue Prolia for a full 5-10 years course Orders: Orders Calcium 3 Months M81.0 - Age-related osteoporosis without current pathological fracture Basic Metabolic Panel 3 Months M81.0 - Age-related osteoporosis without current pathological fracture Albumin Level 3 Months M81.0 - Age-related osteoporosis without current pathological fracture Coding Level of Care Code Est Pt Level 3 (74076) Diagnoses Osteoporosis, unspecified osteoporosis type, unspecified pathological fracture presence M81.0 Osteoporosis type: unspecified Presence of current pathological fracture: unspecified
== END 2024-06-24 16:26 | disposition home or self-care (01) ==
PROVIDERS: PCP Internal Medicine; Visit Provider Internal Medicine Endocrinology, Diabetes & Metabolism
DX: M81.0 Age-related osteoporosis without current pathological fracture (principal)
CPT/HCPCS: 99213

== ENCOUNTER → 2024-06-24 16:08 | Outpatient (BNVA) | payer MEDICARE, MEDICAID, SELFPAY | PROVIDERS: PCP Internal Medicine; Visit Provider Internal Medicine Endocrinology, Diabetes & Metabolism | DX: M81.0 Age-related osteoporosis without current pathological fracture (principal); E89.0 Postprocedural hypothyroidism; Z79.899 Other long term (current) drug therapy | CPT/HCPCS: 99212 ==

== ENCOUNTER 2024-08-31 07:50 | Outpatient (REF) | payer MEDICARE, MEDICAID, SELFPAY ==
[2024-08-31 09:10] LABS: Albumin Level 3.6 g/dL (3.5-5.0); Anion Gap 12 (12-20); Blood Urea Nitrogen 16 mg/dL (9-16); Carbon Dioxide 21 mmol/L (22-29); Chloride 113 mmol/L (96-108); Estimated Glomerular Filt Rate > 60; Glucose Random 114 mg/dL (60-115); Potassium 3.6 mmol/L (3.3-5.1); Sodium 142 mmol/L (135-145)
[2024-08-31 09:22] LABS: Alanine Aminotransferase 10 U/L (0-31); Albumin Level 3.6 g/dL (3.5-5.0); Alkaline Phosphatase 48 U/L (39-117); Anion Gap 12 (12-20); Aspartate Amino Transferase 17 U/L (5-31); Bilirubin Total 0.7 mg/dL (0.0-1.0); Blood Urea Nitrogen 17 mg/dL (9-16); Calcium 8.6 mg/dL (8.4-10.2); Carbon Dioxide 21 mmol/L (22-29); Chloride 112 mmol/L (96-108); Cholesterol 198 mg/dL (<200); Estimated Glomerular Filt Rate > 60; Glucose Fasting 113 mg/dL (60-99); HDL Cholesterol 44 mg/dL (>40); LDL Cholesterol Calculated 136 mg/dL (<100); Potassium 3.6 mmol/L (3.3-5.1); Sodium 141 mmol/L (135-145); Total Protein 6.6 g/dL (6.5-8.0); Triglycerides 90 mg/dL (<150)
[2024-08-31 09:37] LABS: Thyroid Stimulating Hormone 0.73 uIU/mL (0.32-4.0); Vitamin D 25-OH Total 80.8 ng/mL (>30)
== END 2024-08-31 07:51 | disposition home or self-care (01) ==
LOC: HO.LAB 07:50
PROVIDERS: PCP Internal Medicine; Referring Provider Internal Medicine Endocrinology, Diabetes & Metabolism; Visit Provider Internal Medicine
DX: M81.0 Age-related osteoporosis without current pathological fracture (principal); E55.9 Vitamin D deficiency, unspecified; E03.9 Hypothyroidism, unspecified; E78.5 Hyperlipidemia, unspecified; J30.2 Other seasonal allergic rhinitis
CPT/HCPCS: 36415; 80048; 80053; 80061; 82040; 82306; 84443

== ENCOUNTER 2024-09-11 15:58 | Outpatient (AMB) | payer MEDICARE, MEDICAID, SELFPAY ==
--- NOTE | 2024-09-11 16:15 | AM.OFFVISNUR ---
Intake Visit Reasons: Prolia injection Allergies Seasonal Allergies Allergy (Mild, Verified 06/24/24 16:17) itchy Office Meds Prolia 60 mg/mL subcutaneous syringe Performing Provider: Brian Elena MD Performing Location: [facility] [place] Endocrinology Administered by: Sondra Jay RN on 09/11/24 16:15 Dose Route Admin Location Dispensed Lot Number Expiration Date [employer] 60 mg subcut right upper arm 1 mL [id number] 01/03/27 26436-124-69 [employer] Comments: Consent form signed by patient. Pt tolerated injection well. Pt denies any adverse reactions to previous injections. Assessment & Plan Assessment & Plan Orders: Orders AMB Denosumab Injection Practice Supplied Today M81.0 - Age-related osteoporosis without current pathological fracture Medications: New Prolia (denosumab) 60 mg subcut ONCE 1 mL 0RF NS M81.0 - Age-related osteoporosis without current pathological fracture
== END 2024-09-11 16:14 | disposition home or self-care (01) ==
LOC: HO.ENCR 15:59
PROVIDERS: PCP Internal Medicine
DX: M81.0 Age-related osteoporosis without current pathological fracture (principal)

== ENCOUNTER → 2024-09-11 15:58 | Outpatient (BNVA) | payer MEDICARE, MEDICAID, SELFPAY | PROVIDERS: PCP Internal Medicine | DX: M81.0 Age-related osteoporosis without current pathological fracture (principal) | CPT/HCPCS: 96372; J0897 ==

== ENCOUNTER 2024-10-09 16:38 | Outpatient (AMB) | payer MEDICARE, MEDICAID, SELFPAY ==
--- NOTE | 2024-10-09 16:47 | A.OFFPC_ITS ---
Vital Signs 10/09/24 16:49 Height 5 ft 5 in Weight 176 lb 9.444 oz BMI 29.4 BP 132/86 Blood Pressure Location Lt brachial Position Sitting Intake Visit Reasons: Annual Exam Intake Note: Patient here for a physical exam Foundry Hand Required: No Accompanied by: caregiver Allergies Seasonal Allergies Allergy (Mild, Verified 10/09/24 17:20) itchy Medication List - Last Reconciled 10/09/24 by Kellie Phillips MD calcipotriene 0.005% 1 appl topical DAILY calcium citrate 250 mg PO QAM cetirizine (Zyrtec) 10 mg PO BID PRN 30 days chlorhexidine gluconate 0.12% PO cholecalciferol (vitamin D3) 25 mcg PO DAILY 90 days denosumab (Prolia) 60 mg subcut [id number] fluoxetine 10 mg PO DAILY 90 days [incontinence pads As directed] ketoconazole 2% 1 appl topical BID levothyroxine 100 mcg PO DAILY 90 days lorazepam 0.5 mg PO DAILY PRN 30 days norethindrone ac-eth estradiol 1-20 mg-mcg (Junel) tabs PO DAILY olopatadine 0.1% 1 drp ophthalmic (eye) BID triamcinolone acetonide 0.1% 1 appl topical DAILY Tobacco use date assessed: 04/08/24 Dental Screening Dental Screen Date: 04/08/24 HPI HPI Comments History of Present Illness Details The patient is a 49-year-old female with cerebral palsy, developmental delay and mild major depression accompanied by staff member from her home presenting for routine health maintenance physical exam. The patient has a documented history of severe osteoporosis diagnosed in 2023, managed with Prolia injections every six months. She also undergoes regular bone density tests. Her last mammogram was performed in October and yielded normal results. She completed a Cologuard test in 2021 and is scheduled for a follow-up test in 2024, following the three-year guideline. There is a history of hypothyroidism, for which she takes levothyroxine 100 mcg daily, and she has undergone a thyroidectomy in the past. Most recent blood work in August revealed prediabetes with a fasting glucose level of 113 mg/dL. The patient is advised to adhere to a low carbohydrate diet. The report also notes normal cholesterol levels at 198 mg/dL, and stable liver and kidney functions. The patient's vitamin D is within normal ranges. - Mammogram completed in October (gabriel l) - Bone density test showed severe osteop orosis - Cologuard test performed in 2021, next scheduled in 2024 - Tetanus-diphtheria (Td) vaccine is ove rdue (last in 2013) - Routine fasting blood glucose and thyr oid screening planned in six months - Encouragement of low carbohydrate diet for prediabetes management PFSH Medical History Dysphagia Lump in neck Anxiety COVID-19 vaccine administered Cerebral palsy Vitamin D deficiency Osteoporosis Foot pain Psoriasis Hypothyroidism Surgical History Hx of cataract removal with insertion of prosthetic lens History of surgery Hx of oral surgery H/O thyroidectomy Family History Father No problems noted. Mother Cancer Brother No problems noted. Social History Household Members Other:: shared living via [employer] Housing: House Are you a primary veterinarian laboratory animal care to a significant other at home: No Do you presently have visiting nurse or other home services: Yes (lives in shared living) Alcohol intake: current Alcohol intake frequency: holidays/special occasions only Alcohol type: beer Patient Tobacco Use Status: Never used Tobacco e-Cigarette/Vaping Use: Never Used Second Hand Smoke Exposure: No Advance Directives Date on File: 05/24/21 service: No Current occupational status: employed and disabled Current occupation: [employer] Cognitive needs: No Hearing needs: No Vision needs: No Questionnaire Thrive Questionnaire Date Thrive assessed: 10/07/24 I am a: Parent/Caregiver What is your living situation today?: I have a steady place to live Within the past 12 months, did the food you bought not last and you didn't have the money to get more?: Never true Within the past 12 months, did you worry whether your food would run out before you got money to buy more?: Never true Do you have trouble paying for medicines?: No Do you have trouble getting transportation to medical appointments?: No Do you have trouble paying your heating and electricity bill?: No Do you have trouble taking care of your child, family member or friend?: No Do you have trouble with day-to-day activities such as bathing, preparing meals, shopping, managing finances, etc.?: No Are you currently unemployed and looking for a job?: No Are you interested in more education?: No Please select the resources that you would like help with: None Currently or been in a relationship where the following occur: No concerns reported THRIVE Score: 0 AUDIT C Alcohol Use Questionnaire (AUDIT-C) 1. How often do you have a drink containing alcohol?: Monthly or less 2. How many drinks containing alcohol do you have on a typical day when you are drinking?: 1 or 2 3. How often do you have six or more drinks on one occasion?: Never Total Score: 1 JAC-7 AMB Questionnaire JAC-7 Date JAC - 7 assessed: 04/08/24 Feeling nervous, anxious, or on edge: 0 = Not at all Not being able to stop or control worryin = Several days Worrying too much about different things: 1 = Several days Trouble relaxin = Not at all Being so restless that it is hard to sit still: 0 = Not at all Becoming easily annoyed or irritable: 0 = Not at all Feeling afraid as if something awful might happen: 0 = Not at all Total JAC-7 score (0-4 normal; 5-9 mild; 10-14 moderate; 15-21 severe): 2 Source: Developed by Drs. Brian Medina, Tori Purvis, Eric Carrillo and colleagues, with an educational rommel from [employer]. Review of Systems Const All systems reviewed & are unremarkable except as noted in HPI and below Card Denies chest pain at rest, Denies chest pain with activity, Denies edema, Denies irregular heart rhythm, Denies claudication, Denies dyspnea, Denies dyspnea on exertion, Denies orthopnea, Denies paroxysmal nocturnal dyspnea and Denies slow heart rate Resp Denies cough, Denies dyspnea and Denies dyspnea on exertion GI Denies abdominal pain, Denies change in bowel habits, Denies excessive flatus, Denies nausea and Denies vomiting Denies urinary incontinence, Denies urinary hesitancy and Denies urinary urgency Musc Denies abnormal gait, Denies atrophy, Denies deformity and Denies limited range of motion Skin/Breast Denies bleeding lesions, Denies changing lesions and Denies rash Neuro Denies abnormal gait and Denies lack of coordination Physical exam (Primary Care) Vital Signs: Last Vital Signs BP 132/86 10/09/24 16:49 BMI result Body Mass Index 29.4 Tobacco/Smoking Status: Tobacco use Status Tobacco use date assessed 04/08/24 10/09/24 16:48 Patient Tobacco Use Status Never used Tobacco 10/09/24 16:48 e-Cigarette/Vaping Use Never Used 10/09/24 16:48 Thrive Assessment: Date of Thrive Assessment Date Thrive assessed 10/07/24 10/09/24 16:48 Currently or been in a relationship where the following occur: No concerns reported HENMT Head: Yes normal to inspection, Yes normocephalic and Yes atraumatic Ears: external ears normal Eyes General: appearance normal, both eyes and all related structures Eyelids: Yes eyelids normal Conjunctivae: conjunctivae normal Neck Neck: Yes normal visual inspection and Yes supple Resp Effort & Inspection: normal respiratory effort Auscultation: clear to auscultation bilaterally Cardio Jugular venous distension: no JVD Rate: regular rate Rhythm: regular rhythm Heart sounds: S1 normal heart sound present and S2 normal heart sound present GI Inspection: Yes normal to inspection Palpation (GI): Soft to palpation and nontender Auscultation: normal bowel sounds Skin General skin exam: no rashes or lesions noted Neuro General: no focal motor deficits Gait exam (Neuro): Shuffling gait present Extrem General: Yes full ROM Psych Appearance: grossly normal Immunizations Boostrix Tdap 2.5 Lf unit-8 mcg-5 Lf/0.5 mL intramuscular syringe Performing Provider: Kellie Phillips MD [place] [facility] [place] [facility] Administered by: ANAYA Hargrove on 10/09/24 17:40 Dose Route Admin Location Dispensed Lot Number Expiration Date [facility] Construction Lineman 0.5 mL IM Right Deltoid 0.5 mL [id number] 08/03/25 88161-068-71 [facility] VIS Given Date VIS Provided VIS Publication Date 10/09/24 Single Vaccine 21 Eligibility Eligibility Date Funding Source Not [facility] Eligible 10/09/24 Private Coding Level of Care Code Est Pt Prev Care 40-64y(93616) Diagnoses Adult general medical exam Z00.00 Other cerebral palsy G80.8 Cerebral palsy type: other type Mild major depression F32.0 Time Spent (min) 33 Assessment & Plan Assessment & Plan (1) Adult general medical exam: Code(s): Z00.00 - Encounter for general adult medical examination without abnormal findings Category: Medical (2) Cerebral palsy: Comment: ambulatory-hesitant w/stairs, etc.-alert/oriented-signs own consents Code(s): G80.9 - Cerebral palsy, unspecified Category: Medical Qualifiers: Cerebral palsy type: other type Qualified Code(s): G80.8 - Other cerebral palsy (3) Mild major depression: Code(s): F32.0 - Major depressive disorder, single episode, mild Category: Medical Plan - Osteoporosis: Continue Prolia injections every six months, recommend continuation of vitamin D and calcium supplementation. - Prediabetes: Educate on low carbohydrate diet, promote regular exercise, and plan glucose monitoring in six months. - Hypothyroidism: Maintain current dose of levothyroxine; recheck thyroid function in six months. - Immunizations: Administer Td vaccine today. - Allergy Management: Sirtec as needed for allergies. Patient was informed and verbally consented to the use of an ambient scribe for clinic note documentation during this visit. During the visit, we reviewed the patient's history of osteoporosis and discussed continuing Prolia injections every six months alongside calcium and vitamin D supplementation. For prediabetes, I emphasized adherence to a low carbohydrate diet and regular exercise as essential components for prevention of diabetes. The patient?s hypothyroidism management aligns with maintaining the current dose of levothyroxine, with plans to reassess thyroid function levels in six months. Her previous mammogram and bone density results were reviewed. I discussed the scheduling of routine exams, including the next Cologuard test in 2024 and pending fasting blood glucose tests. Additionally, I advised administration of the Td vaccine during this visit. We addressed allergy management with Sirtec to be used as needed. Orders: Orders Comprehensive [place]. Panel Fast 6 Months R73.02 - Impaired glucose tolerance (oral) Thyroid Stimulating Hormone 6 Months E03.9 - Hypothyroidism, unspecified TDaP Immunization Today Z23 - Encounter for immunization Medications: Refilled cholecalciferol (vitamin D3) 25 mcg PO DAILY 90 caps 1RF 90 days E55.9 - Vitamin D deficiency, unspecified levothyroxine 100 mcg PO DAILY 90 tabs 1RF 90 days calcium citrate 250 mg PO QAM 90 tabs 3RF M81.0 - Age-related osteoporosis without current pathological fracture cetirizine (Zyrtec) 10 mg PO BID PRN 30 tabs 1RF allergy symptoms 30 days J30.2 - Other seasonal allergic rhinitis Patient Instructions: - Continue Prolia every six months for osteoporosis - Take calcium and vitamin D supplements as advised - Follow a low carbohydrate diet to manage prediabetes - Continue current levothyroxine regimen for hypothyroidism - Receive the Td vaccine this visit - Schedule follow-up for glucose and thyroid tests in six months - Use Sirtec as needed for allergies
[2024-10-09 16:49] VITALS: BP 132/86; BMI 29.4
== END 2024-10-09 17:35 | disposition home or self-care (01) ==
PROVIDERS: PCP Internal Medicine; Visit Provider Internal Medicine
DX: Z00.00 Encounter for general adult medical examination without abnormal findings (principal); G80.8 Other cerebral palsy; F32.0 Major depressive disorder, single episode, mild; Z23 Encounter for immunization

== ENCOUNTER → 2024-10-09 16:38 | Outpatient (BNVA) | payer MEDICARE, MEDICAID, SELFPAY | PROVIDERS: PCP Internal Medicine; Visit Provider Internal Medicine | DX: Z00.00 Encounter for general adult medical examination without abnormal findings (principal); Z23 Encounter for immunization; G80.8 Other cerebral palsy; F32.0 Major depressive disorder, single episode, mild | CPT/HCPCS: 90471; 90715; 99396 ==

== ENCOUNTER 2024-11-05 07:58 | Outpatient (REF) | payer MEDICARE, MEDICAID, SELFPAY | END 2024-11-05 07:59 | disposition home or self-care (01) | LOC: HO.MAMMO 07:58 | PROVIDERS: PCP Internal Medicine; Visit Provider Internal Medicine | DX: Z12.31 Encounter for screening mammogram for malignant neoplasm of breast (principal) | CPT/HCPCS: 77063; 77067 ==

== ENCOUNTER → 2024-11-05 08:00 | Outpatient (BNV) | payer MEDICARE, MEDICAID, SELFPAY | PROVIDERS: PCP Internal Medicine; Visit Provider Internal Medicine | DX: Z12.31 Encounter for screening mammogram for malignant neoplasm of breast (principal) | CPT/HCPCS: 77063; 77067 ==

== ENCOUNTER 2024-11-13 07:58 | Outpatient (REF) | payer MEDICARE, MEDICAID, SELFPAY | END 2024-11-13 07:59 | disposition home or self-care (01) | LOC: HO.SH 07:58 | PROVIDERS: Visit Provider Internal Medicine | DX: Z13.89 Encounter for screening for other disorder (principal) ==

== ENCOUNTER 2025-01-21 08:53 | Outpatient (REF) | payer MEDICARE, MEDICAID, SELFPAY ==
--- NOTE | ~2025-01-21 | FL_ITS ---
EXAMINATION: XR BARIUM SWALLOW CLINICAL INFORMATION: Dysphagia COMPARISON: None available. TECHNIQUE: Routine upright barium swallow was performed with thick barium and barium coated solid food/crackers with barium. Patient was placed prone lying and thin barium was administered orally. FINDINGS: On oral administration of thick barium and effervescent granules is normal propagation bolus from the oral cavity through the pharynx, esophagus into stomach without any evidence of obstruction, narrowing or stricture. On placing patient in supine and prone lying there is no hiatal hernia or gastroesophageal reflux. The mucosal pattern of the esophagus is normal. FLUOROSCOPY TIME: 1 minute and 29 seconds DOSE AREA PRODUCT: 1208 uGy-m2 (microgray-meter squared) FL/FL barium swallow IMPRESSION: Unremarkable barium swallow exam. Electronically signed by: Eddy Hare MD 01/21/2025 12:19 PM EDT
--- OUTSIDE RECORDS SUMMARY | 2025-01-21 09:23 | XMS_ITS | Encounter Summary ---
Author Organization [facility] Address [address] [place] [address] Care Team Providers Care Vanstone Machine Operator Name Role Phone Sue Littlejohn MD Primary Care Provider Unavailable Mariela Alvarez DO Primary Care Pro vider Unavailable Community, Pcp Primary Care Provider Unavailabl e Encounter Details Date Type Department Care Team Description 04/16/2014 Release of Information Medical Records [address] [place] [id number] Abstract, Provider Social History Tobacco Use Types Packs/Day Years Used Date Smoking Tobacco: Never Alcohol Use Standard Drinks/Week Comments Yes 0 (1 standard drink = 0.6 oz pur e alcohol) beer over the weekends Sex Assigned at Date Recorded Not on file Job Start Date Occupation Industry Not on file Not on file Not on file documented as of this encounter Plan of Treatment Not on file documented as of this encounter Visit Diagnoses Not on filedocumented in this encounter Care Teams Vanstone Machine Operator Relationship Specialty Start Date End Date Sue Littlejohn MD PCP - General Internal Medicine 04/17/1311/12 Mariela Alvarez DO PCP - General Internal Medicine 11/13/14 04/23/23 Community, Pcp PCP - General Internal Medicine 04/24/23 documented as of this encounter
--- OUTSIDE RECORDS SUMMARY | 2025-01-21 09:23 | XMS_ITS | Encounter Summary ---
Author Organization [facility] Address [facility] [place] [address] Care Team Providers Care Web Portal Developer Name Role Phone Sue Littlejohn MD Primary Care Provider Unavailable Mariela Alvarez DO Primary Care Pro vider Unavailable [facility], Pcp Primary Care Provider Unavailabl e Reason for Visit * Reason Onset Date Comments other 10/16/2014 [facility] Encounter Details Date Type Department Care Team Description 10/16/2014 Telephone Adult Medicine [address] [address] Sue Littlejohn MD other ([facility]) Social History Tobacco Use Types Packs/Day Years Used Date Smoking Tobacco: Never Alcohol Use Standard Drinks/Week Comments Yes 0 (1 standard drink = 0.6 oz pur e alcohol) beer over the weekends Sex Assigned at Date Recorded Not on file Job Start Date Occupation Industry Not on file Not on file Not on file documented as of this encounter Miscellaneous Notes * Telephone Encounter - Cielo Guthrie - 10/16/2014 8:02 AM EST Please see attached notes for [facility]. Plan of Care. documented in this encounter Plan of Treatment Not on file documented as of this encounter Visit Diagnoses Not on filedocumented in this encounter Care Teams Web Portal Developer Relationship Specialty Start Date End Date Sue Littlejohn MD PCP - General Internal Medicine 04/17/1311/12 Mariela Alvarez DO PCP - General Internal Medicine 11/13/14 04/23/23 [facility], Pcp PCP - General Internal Medicine 04/24/23 documented as of this encounter
--- OUTSIDE RECORDS SUMMARY | 2025-01-21 09:23 | XMS_ITS | Encounter Summary ---
Author Organization [facility] Address [address] [place] [address] Care Team Providers Care Guest Services Attendant Name Role Phone Sue Littlejohn MD Primary Care Provider Unavailable Mariela Alvarez DO Primary Care Pro vider Unavailable [facility], Pcp Primary Care Provider Unavailabl e Encounter Details Date Type Department Care Team Description 11/10/2014 Surveillance System Monitor Report Medical Records [address] [place] [address] [facility], [address] [id number] Social History Tobacco Use Types Packs/Day Years [...] on filedocumented in this encounter Care Teams Guest Services Attendant Relationship Specialty Start Date End Date Sue Littlejohn MD PCP - General Internal Medicine 04/17/1311/12 Mariela Alvarez DO PCP - General Internal Medicine 11/13/14 04/23/23 [facility], Pcp PCP - General Internal Medicine 04/24/23 documented as of this encounter
--- OUTSIDE RECORDS SUMMARY | 2025-01-21 09:24 | XMS_ITS | Encounter Summary ---
Author Organization [facility] Address [address] [place] [address] Care Team Providers Care Sweet Potato Disintegrator Name Role Phone Mariela Alvarez DO Primary Care Pro vider Unavailable [facility], Pcp Primary Care Provider Unavailabl e Encounter Details Date Type Department Care Team Description 09/28/2015 Business Doc Medical Records [address] [place] [address] Abstract, Provider Social History Tobacco Use Types [...] on filedocumented in this encounter Care Teams Sweet Potato Disintegrator Relationship Specialty Start Date End Date Mariela Alvarez DO PCP - General Internal Medicine 11/13/14 04/23/23 [facility], Pcp PCP - General Internal Medicine 04/24/23 documented as of this encounter
--- OUTSIDE RECORDS SUMMARY | 2025-01-21 09:24 | XMS_ITS | Encounter Summary ---
Author Organization [facility] Address [address] [place] [address] Care Team Providers Care Medical Sales Specialist Name Role Phone Mariela Alvarez DO Primary Care Pro vider Unavailable [facility], Pcp Primary Care Provider Unavailabl e Reason for Visit * Reason Comments E-prescribe Rx Request Encounter Details Date Type Department Care Team Description 09/17/2021 Refill OBGYN - [place] [address] [place] [address] Amy Harrell MD [address] [place] [address] E-prescribe Rx Request Social History Tobacco Use Types Packs/Day Years Used Date Smoking Tobacco: Never Smokeless Tobacco: Never Alcohol Use Standard Drinks/Week Comments Yes 0 (1 standard drink = 0.6 oz pur e alcohol) beer over the weekends Sex Assigned at Date Recorded Not on file Job Start Date Occupation Industry Not on file Not on file Not on file documented as of this encounter Miscellaneous Notes * Telephone Encounter - Priscilla Loyd R.N. - 09/21/2021 4:27 PM EST Last AG 07/09/30, next AG 01/08/[address] Harrell. Rx pended w/ 3 refills. * Telephone Encounter - Jewell Calles - 09/21/2021 1:48 PM EST Pt scheduled AG for 01/18/22 * Telephone Encounter - Rose Mary Bob - 09/17/2021 12:07 PM EST WHEN WAS THE PATIENTS LAST ANNUAL COAL LOADER EXAM? 07/09/20 Does patient have an upcoming appointment? No (THE MEDICATION REQUESTED IS ON THE MED LIST ABOVE) Did you check the Pharmacy information above?: YES Indicate how soon the patient needs the script: [place] Patient would like script to be: E-PRESCRIBED/FAXED TO PHARMACY Is the doctor here today?: NO Can the message wait until the doctor returns?: NO Has the patient been told that the prescription will not be filled until the end of the day? NO [place] / [place] / Product Type: MEDICARE [id number] documented in this encounter Plan of Treatment Not on file documented as of this encounter Visit Diagnoses Not on filedocumented in this encounter Care Teams Medical Sales Specialist Relationship Specialty Start Date End Date Mariela Alvarez DO PCP - General Internal Medicine 11/13/14 04/23/23 [facility], Pcp PCP - General Internal Medicine 04/24/23 documented as of this encounter
--- OUTSIDE RECORDS SUMMARY | 2025-01-21 09:24 | XMS_ITS | Encounter Summary ---
Author Organization [facility] Address [address] [place] [address] Care Team Providers Care Microfilm Clerk Name Role Phone Mariela Alvarez DO Primary Care Pro vider Unavailable [facility], Pcp Primary Care Provider Unavailabl e Reason for Visit * Reason Onset Date Comments other 01/11/2016 [facility] / Medical Info. Encounter Details Date Type Department Care Team Description 01/11/2016 Telephone Adult Medicine [address] [address] Mariela Alvarez DO other ([employer] / Medical Info.) Social History Tobacco Use Types Packs/Day Years [...] * Telephone Encounter - Cielo Guthrie - 01/11/2016 2:53 PM EST Please review paper from [facility], sign and fax back to [phone]. documented in this encounter Plan of Treatment Not on file documented as of this encounter Visit Diagnoses Not on filedocumented in this encounter Care Teams Microfilm Clerk Relationship Specialty Start Date End Date Mariela Alvarez DO PCP - General Internal Medicine 11/13/14 04/23/23 [facility], Pcp PCP - General Internal Medicine 04/24/23 documented as of this encounter
--- OUTSIDE RECORDS SUMMARY | 2025-01-21 09:24 | XMS_ITS | Encounter Summary ---
Author Organization [facility] Address [address] [place] [address] Care Team Providers Care Meringuer Name Role Phone Mariela Alvarez DO Primary Care Pro vider Unavailable [facility], Pcp Primary Care Provider Unavailabl e Reason for Visit * Reason Onset Date Comments REFERRAL 07/22/2016 Encounter Details Date Type Department Care Team Description 07/22/2016 Telephone Eye Services-[address] [address] Ron Hunt, OD REFERRAL Social History Tobacco Use Types Packs/Day Years [...] encounter Miscellaneous Notes * Telephone Encounter - Alicia Nash - 07/22/2016 10:22 AM EDT This is just an FYI: This patient was referred to the Eye Department for routine eye exam after being seen on 06/20/16. Since then the patient has failed to respond to our phone calls and an unable to reach letter that was sent to the patient's home. Therefore the patient will be removed from our report. documented in this encounter Plan of Treatment Not on file documented as of this encounter Visit Diagnoses Not on filedocumented in this encounter Care Teams Meringuer Relationship Specialty Start Date End Date Mariela Alvarez DO PCP - General Internal Medicine 11/13/14 04/23/23 [facility], Pcp PCP - General Internal Medicine 04/24/23 documented as of this encounter
--- OUTSIDE RECORDS SUMMARY | 2025-01-21 09:24 | XMS_ITS | Encounter Summary ---
Author Organization [facility] Address [address] [place] [address] Care Team Providers Care Tariff Compiling Clerk Name Role Phone Mariela Alvarez DO Primary Care Pro vider Unavailable [facility], Pcp Primary Care Provider Unavailabl e Reason for Referral * Non MARIAN (Routine) - Authorized/Booked Specialty Diagnoses / Procedures Referred By Eagle t Referred To Contact Endocrinology Procedures REFERRAL TO ENDOCRINOLOGY Mariela Alvarez DO [address]/[place] [address] Referral ID Status Reason Start Date Expiration Date V isits Requested Visits Authorized [id number] 10/07 Authorized/ Booked 09/29/2015 09/29/2016 1 1 Encounter Details Date Type Department Care Team Description 09/29/2015 [place] [address] Mariela Alvarez DO Social History Tobacco Use Types Packs/Day Years [...] on filedocumented in this encounter Care Teams Tariff Compiling Clerk Relationship Specialty Start Date End Date Mariela Alvarez DO PCP - General Internal Medicine 11/13/14 04/23/23 [facility], Pcp PCP - General Internal Medicine 04/24/23 documented as of this encounter
--- OUTSIDE RECORDS SUMMARY | 2025-01-21 09:24 | XMS_ITS | Encounter Summary ---
Author Organization [facility] Address [address] [place] [address] Care Team Providers Care Vice President Of Nursing Name Role Phone Mariela Alvarez DO Primary Care Pro vider Unavailable [facility], Pcp Primary Care Provider Unavailabl e Reason for Visit * Reason Onset Date Comments REFERRAL 06/19/2017 Encounter Details Date Type Department Care Team Description 06/19/2017 Telephone Endocrinology - [place] [id number] [place] [address] Usama Penaloza MD REFERRAL Social History Tobacco Use Types Packs/Day [...] encounter Miscellaneous Notes * Telephone Encounter - Madeline Perry - 06/19/2017 12:17 PM EDT Several attempts made to contact patient regardng referral to endocrinology with no response. Fyi to referring provider documented in this encounter Plan of Treatment Not on file documented as of this encounter Visit Diagnoses Not on filedocumented in this encounter Care Teams Vice President Of Nursing Relationship Specialty Start Date End Date Mariela Alvarez DO PCP - General Internal Medicine 11/13/14 04/23/23 [facility], Pcp PCP - General Internal Medicine 04/24/23 documented as of this encounter
--- OUTSIDE RECORDS SUMMARY | 2025-01-21 09:24 | XMS_ITS | Encounter Summary ---
Author Organization [facility] Address [address] [place] [address] Care Team Providers Care Associate Dean Of Students Name Role Phone Mariela Alvarez DO Primary Care Pro vider Unavailable [facility], Pcp Primary Care Provider Unavailabl e Encounter Details Date Type Department Care Team Description 07/15/2020 SCAN Medical Records [address] [place] [address] Abstract, Provider Social History Tobacco Use Types Packs/Day Years Used Date Smoking Tobacco: Never Smokeless Tobacco: Never Alcohol Use Standard Drinks/Week Comments Yes 0 (1 standard drink = 0.6 oz pur e alcohol) beer over the weekends Sex Assigned at Date Recorded Not on file Job Start Date Occupation Industry Not on file Not on file Not on file COVID-19 Exposure Response Date Recorded In the last month, have you been in contact with someone who was confirmed or suspected to have Coronavirus / COVID-19? No / Unsure 07/09/2020 1:46 PM EDT documented as of this encounter Plan of Treatment Not on file documented as of this encounter Visit Diagnoses Not on filedocumented in this encounter Care Teams Associate Dean Of Students Relationship Specialty Start Date End Date Mariela Alvarez DO PCP - General Internal Medicine 11/13/14 04/23/23 [facility], Pcp PCP - General Internal Medicine 04/24/23 documented as of this encounter
--- OUTSIDE RECORDS SUMMARY | 2025-01-21 09:24 | XMS_ITS | Encounter Summary ---
Author Organization [facility] Address [address] [place] [address] Care Team Providers Care Antique Furniture Reproducer Name Role Phone Mariela Alvarez DO Primary Care Pro vider Unavailable [facility], Pcp Primary Care Provider Unavailabl e Reason for Visit * Reason Onset Date Comments REFERRAL 07/12/2017 Dermatology Encounter Details Date Type Department Care Team Description 07/12/2017 Telephone Dermatology - [address] [phone] Usama Penaloza MD REFERRAL (Dermatology) Social History Tobacco Use Types Packs/Day Years [...] encounter Miscellaneous Notes * Telephone Encounter - Gisele Jacobs - 07/12/2017 8:30 AM EDT I have been unable to reach this patient by phone. A letter is being sent to the last known home address. documented in this encounter Plan of Treatment Not on file documented as of this encounter Visit Diagnoses Not on filedocumented in this encounter Care Teams Antique Furniture Reproducer Relationship Specialty Start Date End Date Mariela Alvarez DO PCP - General Internal Medicine 11/13/14 04/23/23 [facility], Pcp PCP - General Internal Medicine 04/24/23 documented as of this encounter
--- OUTSIDE RECORDS SUMMARY | 2025-01-21 09:24 | XMS_ITS | Encounter Summary ---
Author Organization [facility] Address [address] [place] [address] Care Team Providers Care Catering Coordinator Name Role Phone Mariela Alvarez DO Primary Care Pro vider Unavailable [facility], Pcp Primary Care Provider Unavailabl e Reason for Visit * Reason Onset Date Comments REFERRAL 06/28/2017 Dermatology Encounter Details Date Type Department Care Team Description 06/28/2017 Telephone Dermatology - [address] [phone] Linda Jimenez PA-C REFERRAL (Dermatology) Social History Tobacco Use Types [...] * Telephone Encounter - Gisele Jacobs - 06/28/2017 8:01 AM EDT I have been unable to reach this patient by phone. A letter is being sent to the last known home address. documented in this encounter Plan of Treatment Not on file documented as of this encounter Visit Diagnoses Not on filedocumented in this encounter Care Teams Catering Coordinator Relationship Specialty Start Date End Date Mariela Alvarez DO PCP - General Internal Medicine 11/13/14 04/23/23 [facility], Pcp PCP - General Internal Medicine 04/24/23 documented as of this encounter
--- OUTSIDE RECORDS SUMMARY | 2025-01-21 09:24 | XMS_ITS | Encounter Summary ---
Author Organization [facility] Address [address] [place] [address] Care Team Providers Care Manager Drilling Name Role Phone Mariela Alvarez DO Primary Care Pro vider Unavailable [facility], Pcp Primary Care Provider Unavailabl e Reason for Referral * Non MARIAN (Priority) - Unable to reach/declined Specialty Diagnoses / Procedures Referred By Eagle t Referred To Contact Endocrinology Procedures REFERRAL TO ENDOCRINOLOGY Mariela Alvarez DO [address] [place], [place] [id number] [place] [address]/[address] [address] Referral ID Status Reason Start Date Expiration Date V isits Requested Visits Authorized [id number]-LTR 06/12 Unable to reach/decli kimberly 05/24/2017 05/24/2018 1 1 Encounter Details Date Type Department Care Team Description 05/24/2017 Orders Only Adult Medicine [address] [address] Mariela Alvarez DO Social History Tobacco Use [...] on filedocumented in this encounter Care Teams Manager Drilling Relationship Specialty Start Date End Date Mariela Alvarez DO PCP - General Internal Medicine 11/13/14 04/23/23 [facility], Pcp PCP - General Internal Medicine 04/24/23 documented as of this encounter
--- OUTSIDE RECORDS SUMMARY | 2025-01-21 09:24 | XMS_ITS | Encounter Summary ---
Author Organization [facility] Address [address] [place] [address] Care Team Providers Care Straw Hat Brim Raiser Operator Name Role Phone Mariela Alvarez DO Primary Care Pro vider Unavailable [facility], Pcp Primary Care Provider Unavailabl e Reason for Visit * Reason Comments E-prescribe Rx Request Encounter Details Date Type Department Care Team Description 03/16/2023 Refill OBGYN - [place] [address] [place] [address] Amy Harrell MD [address] [place] [address] E-prescribe Rx Request Social History Tobacco Use [...] Exposure Response Date Recorded In the last 10 days, have yo u been in contact with someone who was confirmed or suspected to have Coronavirus/COVID-19? No / Unsure 03/03/2023 3:20 PM EDT documented as of this encounter Miscellaneous Notes * Telephone Encounter - Mariel Turner - 03/16/2023 11:19 AM EDT WHEN WAS THE PATIENTS LAST ANNUAL CARPENTERS SUPERVISOR EXAM? 01/18/22 Does patient have an upcoming appointment? Yes 06/22/23 (THE MEDICATION REQUESTED IS ON THE MED LIST ABOVE) Did you check the Pharmacy information above?: YES Indicate how soon the patient needs the script: BY THE END OF THE DAY Patient would like script to be: E-PRESCRIBED/FAXED TO PHARMACY Is the doctor here today?: YES Can the message wait until the doctor returns?: NO Has the patient been told that the prescription will not be filled until the end of the day? NO [place] / Product Type: [place]ICARE [id number] documented in this encounter Plan of Treatment Not on file documented as of this encounter Visit Diagnoses Not on filedocumented in this encounter Care Teams Straw Hat Brim Raiser Operator Relationship Specialty Start Date End Date Mariela Alvarez DO PCP - General Internal Medicine 11/13/14 04/23/23 [facility], Pcp PCP - General Internal Medicine 04/24/23 documented as of this encounter
--- OUTSIDE RECORDS SUMMARY | 2025-01-21 09:24 | XMS_ITS | Encounter Summary ---
Author Organization [facility] Address [address] [place] [address] Care Team Providers Care Cosmetics Machine Operator Name Role Phone Mariela Alvarez DO Primary Care Pro vider Unavailable [facility], Pcp Primary Care Provider Unavailabl e Encounter Details Date Type Department Care Team Description 06/27/2017 Business Doc Medical Records [address] [place] [address] Abstract, Provider Social History Tobacco Use Types [...] on filedocumented in this encounter Care Teams Cosmetics Machine Operator Relationship Specialty Start Date End Date Mariela Alvarez DO PCP - General Internal Medicine 11/13/14 04/23/23 [facility], Pcp PCP - General Internal Medicine 04/24/23 documented as of this encounter
--- OUTSIDE RECORDS SUMMARY | 2025-01-21 09:24 | XMS_ITS | Encounter Summary ---
Author Organization [facility] Address [address] [place] [address] Care Team Providers Care Ruffling Machine Operator Name Role Phone Mariela Alvarez DO Primary Care Pro vider Unavailable [facility], Pcp Primary Care Provider Unavailabl e Encounter Details Date Type Department Care Team Description 06/16/2022 Orders Only Medical Records [address] [place] [address] Amy Harrell MD [address] [place] [address] Social History Tobacco Use Types Packs/Day Years Used Date Smoking Tobacco: Never Smokeless Tobacco: Never Alcohol Use Standard Drinks/Week Comments Yes 0 (1 standard drink = 0.6 oz pur e alcohol) beer over the weekends Sex Assigned at Date Recorded Not on file Job Start Date Occupation Industry Not on file Not on file Not on file documented as of this encounter Progress Notes * Amy Harrell MD - 06/21/2022 10:41 AM EDT I have reviewed the Pathology report. Based on the result, this patient should have a follow-up. Annual Exam in 1 year--no PAP--Letter # 1 Normal documented in this encounter Plan of Treatment Not on file documented as of this encounter Procedures Procedure Name Priority Date/Time Associated Diagnosis Comments OUTSIDE PAP SMEAR Routine 06/13/2022 documented in this encounter Results * OUTSIDE PAP SMEAR (06/13/2022) Amy Harrell MD LAB documented in this encounter Visit Diagnoses Not on filedocumented in this encounter Care Teams Ruffling Machine Operator Relationship Specialty Start Date End Date Mariela Alvarez DO PCP - General Internal Medicine 11/13/14 04/23/23 [facility], Pcp PCP - General Internal Medicine 04/24/23 documented as of this encounter
--- OUTSIDE RECORDS SUMMARY | 2025-01-21 09:24 | XMS_ITS | Encounter Summary ---
Author Organization [facility] Address [address] [place] [address] Care Team Providers Care Lapping Machine Tender Name Role Phone Mariela Alvarez DO Primary Care Pro vider Unavailable [facility], Pcp Primary Care Provider Unavailabl e Reason for Visit * Reason Comments E-prescribe Rx Request Encounter Details Date Type Department Care Team Description 07/22/2017 Refill Adult Medicine [address] [address] Mariela Alvarez DO E-prescribe Rx Request Social History Tobacco Use [...] encounter Miscellaneous Notes * Telephone Encounter - Maddie Munoz M.A. - 07/28/2017 9:[address] Gino Romeo and Sasha, That's impossible. We do not have a Zully that would call from Dr Bourgeois's office and there is not a telephone encounter or rx request from April 2017 in the system. * Telephone Encounter - Sasha Quiroz - 07/28/2017 8:42 AM EDT I called [facility] and they said that someone named Zully called them from Dr. Bourgeois's office and roberto carloskip script refilled on 07/01/2016 with 3 refills. They took the verbal order of this medication over the phone. Not sure what you want to do about this . This was last refilled in April 2017. * Telephone Encounter - Maddie Munoz M.A. - 07/26/2017 4:41 PM EDT I called pt and spoke with the director of health care marketing Linda (FYI) I explained that this was not going to be filled by us and the the pt needs to get this from her shrimp pond laborer. Linda states the pt does not have one and that we have been filling it for her. I explained that the las rx for this was written on 06/15/15 for90 day supply with 3 refills. 1 years worth. She states that the pt has been getting this from us all along and even has been having refills done this year. I pointed out that the last rx would have been done last jun. She got mad at me and said I was mistaken. She wants to speak with my real estate development manager. Itold her I would forward this to her. After getting off the phone with Linda, I decided to get pt services involved. * Telephone Encounter - Mariela Romeo DO - 07/24/2017 9:54 AM EDT Needs to go to shrimp pond laborer * Telephone Encounter - Maddie Munoz M.A. - 07/24/2017 9:47 AM EDT Should this be filled by STAFF DESIGN ENGINEER? * Telephone Encounter - Kely Borja - 07/24/2017 9:35 AM EDT Patient would like script to be: E-PRESCRIBED/FAXED TO PHARMACY WHEN WAS THE PATIENT'S LAST APPOINTMENT IN ADULT MEDICINE? 06/29/17 WHEN WAS THE LAST TIME THE PATIENT SAW THEIR PCP? Same as above Does patient have an upcoming appointment? No-unable to reach left voicemaill to call for appointment due to refill request. Appt due dec 2017 (THE MEDICATION REQUESTED IS ON THE MED LIST ABOVE) All of the medications requested were on the CURRENT MEDS list Did you check the Pharmacy information above?: YES Patient wants: 30 -day supply Is this a mail order prescription request ? NO Patients current insurance carrier is: [place] / [place] / Product Type: MEDICARE [id number] documented in this encounter Plan of Treatment Not on file documented as of this encounter Visit Diagnoses Not on filedocumented in this encounter Care Teams Lapping Machine Tender Relationship Specialty Start Date End Date Mariela Alvarez DO PCP - General Internal Medicine 11/13/14 04/23/23 [facility], Pcp PCP - General Internal Medicine 04/24/23 documented as of this encounter
--- OUTSIDE RECORDS SUMMARY | 2025-01-21 09:24 | XMS_ITS | Encounter Summary ---
Author Organization [facility] Address [address] [place] [address] Care Team Providers Care Photographic Editor Name Role Phone Mariela Alvarez DO Primary Care Pro vider Unavailable Community, Pcp Primary Care Provider Unavailabl e Encounter Details Date Type Department Care Team Description 07/15/2020 Release of Information Medical Records [address] [place] [address] Abstract, Provider Social History Tobacco Use Types [...] on filedocumented in this encounter Care Teams Photographic Editor Relationship Specialty Start Date End Date Mariela Alvarez DO PCP - General Internal Medicine 11/13/14 04/23/23 Community, Pcp PCP - General Internal Medicine 04/24/23 documented as of this encounter
--- OUTSIDE RECORDS SUMMARY | 2025-01-21 09:24 | XMS_ITS | Encounter Summary ---
Author Organization [facility] Address [address] [place] [address] Care Team Providers Care Bushel Worker Name Role Phone [facility], Pcp Primary Care Provider Unavailabl e Reason for Visit * Reason Onset Date Comments Orders Call 01/31/2024 Encounter Details Date Type Department Care Team Description 01/31/2024 Telephone OBGYN - [place] [address] [place] [address] Amy Harrell MD [address] [place] [id number] Orders Call Social History Tobacco Use Types Packs/Day Years [...] encounter Miscellaneous Notes * Telephone Encounter - Arielle Toure - 01/31/2024 3:03 PM EDT Order received from Department of Developmental Services for annual verification of medication. Form placed in Dr Harrell's bin. documented in this encounter Plan of Treatment Not on file documented as of this encounter Visit Diagnoses Not on filedocumented in this encounter Care Teams Bushel Worker Relationship Specialty Start Date End Date Community, Pcp PCP - General Internal Medicine 04/24/23 documented as of this encounter
== END 2025-01-21 08:54 | disposition home or self-care (01) ==
LOC: HO.XRAY 08:53
PROVIDERS: PCP Internal Medicine; Visit Provider Internal Medicine
DX: R13.10 Dysphagia, unspecified (principal)
CPT/HCPCS: 74220

== ENCOUNTER → 2025-01-21 08:55 | Outpatient (BNV) | payer MEDICARE, MEDICAID, SELFPAY | PROVIDERS: PCP Internal Medicine; Visit Provider Radiology Diagnostic Radiology | DX: R13.10 Dysphagia, unspecified (principal) | CPT/HCPCS: 74220 ==

== ENCOUNTER 2025-01-24 08:27 | Outpatient (REF) | payer MEDICARE, MEDICAID, SELFPAY ==
--- OUTSIDE RECORDS SUMMARY | 2025-01-24 08:46 | XMS_ITS | Clinical Summary ---
Author Organization [facility] Address [address] [place] [address] Care Team Providers Care Live Truck Technician Name Role Phone JustineOusmane Mariela Primary Care Pro vider Encounters Date Type Department Care Team Description 01/23/2025 Telephone Obstetrics and Gynecology - [address] [phone] Amy Harrell MD Medication Problem 01/22/2025 Telephone Obstetrics and Gynecology - [address] [phone] Amy Harrell MD Medication Problem from Last 3 Months Surgical History Surgery Date Site/Laterality Comments CARDIAC SURGERY PROCEDURE: HISTORICAL HEART SURGERY(ASD,VSD,VALVES); COMMENT: unsure of what type Medical History Medical History Date Comments Mild intellectual disabilities 11/14/2005 D X:Mild intellectual disabilities Other psoriasis and similar disorders 11/14/2005 DX:Other psoriasis and similar disorders Heart murmur DX:Heart murmur; COMMENT: had a surgery in the past, but not sure Patient has healthcare proxy 05/15/2013 DX: Patient has healthcare proxy History of malignant melanoma 08/06/2020 DX :History of malignant melanoma Family History Medical History Relation Name Comments Melanoma Mother Other cancer Mother melanoma Breast cancer Neg Hx Colon cancer Neg Hx Ovarian cancer Neg Hx Pancreatic cancer Neg Hx Prostate cancer Neg Hx Uterine cancer Neg Hx Relation Name Status Comments Father Alive Mother Alive Social History Tobacco Use Types Packs/Day Years Used Date Smoking Tobacco: Never Smokeless Tobacco: Never Alcohol Use Standard Drinks/Week Comments Yes 0 (1 standard drink = 0.6 oz pur e alcohol) Comments Unknown Sex and Gender Information Value Date Recorded Sex Assigned at Not on file Legal Sex Female 10:05 PM EST Gender Identity Not on file Sexual Orientation Not on file Obstetrics History Last Filed Vital Signs Vital Sign Reading Time Taken Comments Blood Pressure 110/74 06/27/2024 2:58 PM EDT Pulse 100 06/27/2024 2:58 PM EDT Temperature - - Respiratory Rate - - Oxygen Saturation - - Inhaled Oxygen Concentration - - Weight 76.8 kg (169 lb 6.4 oz) 06/27/2024 2:58 P M EDT Height 165.1 cm (5' 5 ) 06/27/2024 2:58 PM EDT Body Mass Index 28.19 06/27/2024 2:58 PM EDT Plan of Treatment Health Maintenance Due Date Last Done Comments Hepatitis B Vaccines (1 of 3 - 19+ 3-dose series) 1996 Cervical Cancer Screening: HPV 1998 Breast Cancer Screening 06/23/2019 06/23/2017 Cholesterol Screening (Lipid Panel) 10/08/2022 Colorectal Cancer Screening: Colonoscopy 10/08/2022 Depression Screening 10/08/2022 HIV Screening 10/08/2022 Hepatitis C Screening 10/08/2022 Social Influencers of Health Screening 10/08/2022 DTaP,Tdap,and Td Vaccines (3 - Td or Tdap) 05/14/2024 05/14/2014, 02/22/2007 COVID-19 Vaccine (2023-2 5 season) 2024 Influenza Vaccine (#1) 2024 09/14/2010 HIB Vaccines Aged Out No longer eligi ble based on patient's age to complete this topic HPV Vaccines Aged Out No longer eligi ble based on patient's age to complete this topic Hepatitis A Vaccines Aged Out No long er eligible based on patient's age to complete this topic IPV Vaccines Aged Out No longer eligi ble based on patient's age to complete this topic MMR Vaccines Aged Out No longer eligi ble based on patient's age to complete this topic Meningococcal ACWY Vaccine Aged Out N o longer eligible based on patient's age to complete this topic Meningococcal B Vacine Aged Out No lo nger eligible based on patient's age to complete this topic Pneumococcal Vaccine: Pediatrics (0 to 5 Years) and At-Risk Patients (6 to 64 Years) Aged Out No longer eligible b ased on patient's age to complete this topic RSV Immunization Patients Under 20 months Aged Out No longer eligible b ased on patient's age to complete this topic Varicella Vaccines Aged Out No longer eligible based on patient's age to complete this topic Procedures Procedure Name Priority Date/Time Associated Diagnosis Comments SCR MAMMO BI INCL CAD Routine 06/23/2017 9:10 AM EDT Other psoriasis Cerebral palsy, unspecified (CMS/HCC) Thyrotoxicosis, unspecified without thyrotoxic crisis or storm Mild intellectual disabilities Encounter for general adult medical examination without abnormal findings Age-related osteoporosis without current pathological fracture Encounter for screening mammogram for malignant neoplasm of breast from Last 3 Months or Most Recently Relevant to Health Maintenance Results * SCR MAMMO BI INCL CAD (06/23/2017 9:10 AM EDT) Anatomical Region Laterality Modality Radiographic Cassie ging 06/21/2017 11:3 4 AM EDT Narrative 06/23/2017 10:19 AM EDT This is a summary report. The complete report is available in the patient's medical record. If you cannot access the medical record, please contact the sending organization for a detailed fax or copy. Full field digital screening mammography, reviewed with CAD and compared to previous. ??The breasts are composed of fatty and fibroglandular tissue. ??No suspicious mass, architectural distortion or suspicious calcifications are identified. IMPRESSION: : No mammographic evidence of malignancy. BIRADS 1-Negative; N. 5 year breast cancer risk assessment 0.6 % Lifetime breast cancer risk assessment 11.1 % Breast cancer risk category Low (<15%) Procedure Note Hodan Paulson MD - 12/11/2023 This is a summary report. The complete report is available in thepatient's medical record. If you cannot access the medical record, pleasecontact the sending organization for a detailed fax or copy. Full field digital screening mammography, reviewed with CAD and comparedto previous. The breasts are composed of fatty and fibroglandular tissue.No suspicious mass, architectural distortion or suspicious calcificationsare identified. IMPRESSION: : No mammographic evidence of malignancy. BIRADS 1-Negative; N. 5 year breast cancer risk assessment 0.6 % Lifetime breast cancer risk assessment 11.1 % Breast cancer risk category Low (<15%) Linda BARTHOLOMEW IMG XR PROCEDURES Final Result from Last 3 Months or Most Recently Relevant to Health Maintenance Care Teams Live Truck Technician Relationship Specialty Start Date End Date Mariela Alvarez DO PCP - General Internal Medicine 11/13/14
--- OUTSIDE RECORDS SUMMARY | 2025-01-24 08:46 | XMS_ITS | Encounter Summary ---
Author Organization [facility] Address [id number] [place] [id number] Care Team Providers Care Program Advisor Name Role Phone Mariela Alvarez DO Primary Care Pro vider Reason for Visit * Reason Onset Date Comments Medication Problem 01/23/2025 Encounter Details Date Type Department Care Team ([facility] st Contact Info) Description 01/23/2025 Telephone Obstetrics and Gynecology [address] [phone] Amy Harrell MD [address] [place], [place] Medication Problem Social History Tobacco Use Types Packs/Day Years Used Date Smoking Tobacco: Never Smokeless Tobacco: Never Alcohol Use Standard Drinks/Week Comments Yes 0 (1 standard drink = 0.6 oz pur e alcohol) Comments Unknown Sex and Gender Information Value Date Recorded Sex Assigned at Not on file Legal Sex Female 10:05 PM EST Gender Identity Not on file Sexual Orientation Not on file documented as of this encounter Progress Notes * Rosy Talamantes RN - 01/23/2025 1:50 PM EDT Fax received and will give to provider for signature. * Radha Hopkins - 01/23/2025 12:54 PM EDT Angélica from [employer]- called back states she called yesterday regarding a fax on this pt - she just refaxed it again -is asking if there is an alternative fax or other way to reach the office - please call her at [phone] to advise documented in this encounter Plan of Treatment Not on file documented as of this encounter Visit Diagnoses Not on filedocumented in this encounter Care Teams Program Advisor Relationship Specialty Start Date End Date Mariela Alvarez DO PCP - General Internal Medicine 11/13/14 documented as of this encounter
--- OUTSIDE RECORDS SUMMARY | 2025-01-24 08:46 | XMS_ITS | Encounter Summary ---
Author Organization [facility] Address [address] [place] [phone] Care Team Providers Care Ela Teacher Name Role Phone Mariela Alvarez DO Primary Care Pro vider Reason for Visit * Reason Onset Date Comments Medication Problem 01/22/2025 Encounter Details Date Type Department Care Team ([facility] st Contact Info) Description 01/22/2025 Telephone Obstetrics and Gynecology [address] [phone] Amy Harrell MD [address] [place], [place] Medication Problem Social History Tobacco Use [...] as of this encounter Progress Notes * Betzy Peters RN - 01/22/2025 2:56 PM EDT Called Angélica Luevano from [employer]-the fax did not go through. Left message on her voicemail. * Betzy Peters RN - 01/22/2025 1:18 PM EDT Spoke wih Angélica Luevano from [employer]-she has sent over a fax -they need provider to sign verfication of what meds pt is on-they have snet fax over 5 times-will have BS[facility] look for fax on fax data base. * Radha Hopkins - 01/22/2025 12:52 PM EDT The pts sash finisher Angélica from [employer] is calling back states she has faxed over several requestsfor a refill on the pts control but has not received anything back -Fax number confirmed -- please call to advise documented in this encounter Plan of Treatment Not on file documented as of this encounter Visit Diagnoses Not on filedocumented in this encounter Care Teams Ela Teacher Relationship Specialty Start Date End Date Mariela Alvarez DO PCP - General Internal Medicine 11/13/14 documented as of this encounter
== END 2025-01-24 08:28 | disposition home or self-care (01) ==
LOC: HO.SH 08:27
PROVIDERS: Visit Provider Internal Medicine
DX: Z01.118 Encounter for examination of ears and hearing with other abnormal findings (principal); H90.3 Sensorineural hearing loss, bilateral
CPT/HCPCS: 92557

== ENCOUNTER 2025-03-01 08:25 | Outpatient (REF) | payer MEDICARE, MEDICAID, SELFPAY ==
[2025-03-01 09:38] LABS: Albumin Level 3.5 g/dL (3.5-5.0); Anion Gap 12 (12-20); Blood Urea Nitrogen 22 mg/dL (9-16); Calcium 8.9 mg/dL (8.4-10.2); Carbon Dioxide 22 mmol/L (22-29); Chloride 112 mmol/L (96-108); Estimated Glomerular Filt Rate > 60; Glucose Random 86 mg/dL (60-115); Potassium 3.7 mmol/L (3.3-5.1); Sodium 142 mmol/L (135-145)
== END 2025-03-01 08:26 | disposition home or self-care (01) ==
LOC: HO.LAB 08:25
PROVIDERS: PCP Internal Medicine; Visit Provider Internal Medicine Endocrinology, Diabetes & Metabolism
DX: M81.0 Age-related osteoporosis without current pathological fracture (principal)
CPT/HCPCS: 36415; 80048; 82040

== ENCOUNTER 2025-03-12 15:59 | Outpatient (AMB) | payer MEDICARE, MEDICAID, SELFPAY ==
--- NOTE | 2025-03-12 16:01 | A.OFFVIS_ITS ---
Vital Signs 03/12/25 16:03 Height 5 ft 4.25 in Weight 173 lb 8.061 oz BMI 29.5 BP 128/88 Blood Pressure Location Lt brachial Position Sitting Pulse 78 Pulse Source Pulse Oximeter Pulse Oximetry (%) 99 Oxygen Delivery Method Room Air Intake Visit Reasons: osteoporosis/prolia Intake Note: Patient present today for Osteoporosis and Prolia injection. Senior Design Engineering Specialist Required: No Accompanied by: Care Provider Allergies Seasonal Allergies Allergy (Mild, Verified 03/12/25 16:05) itchy Medication List - Last Reconciled 03/12/25 by Brian Elena MD calcipotriene 0.005% 1 appl topical DAILY calcium citrate 250 mg PO QAM cetirizine (Zyrtec) 10 mg PO BID PRN 30 days chlorhexidine gluconate 0.12% PO cholecalciferol (vitamin D3) 25 mcg PO DAILY 90 days denosumab (Prolia) 60 mg subcut [id number] fluoxetine 10 mg PO DAILY 90 days [incontinence pads As directed] ketoconazole 2% 1 appl topical BID levothyroxine 100 mcg PO DAILY 90 days lorazepam 0.5 mg PO DAILY PRN 30 days norethindrone ac-eth estradiol 1-20 mg-mcg (Junel) tabs PO DAILY olopatadine 0.1% 1 drp ophthalmic (eye) BID triamcinolone acetonide 0.1% 1 appl topical DAILY HPI Comments Details: 50 YO Female with cerebral palsy who is seen in F/U today Osteoporosis. Vitamin D has remained WNL and she is using Calcium carbonate 600 mg PO once daily, in addition to 2 servings of dairy per day. 2. Osteoporosis: First diagnosed approximately 2013. DXA was ordered on that time due to her being on Depoprovera for 5 years. She had DXA 2016 which revealed Osteoporosis. She was started on Fosamax weekly, this was continued for approximately 2 years, and was stopped mid 2017 as she was unable to have refill sent from PCP. She tolerated fosamax well. She had DXA completed mid 2017 which revealed severe Osteoporosis of the spine and Osteoporosis of the hip. She had an unremarkable workup for secondary causes of Osteoporosis. She was started on Prolia. She has received 5 doses so far, 12/26/18, 06/24/19, 12/25/2019, 07/20/2020 and 01/22/2021. She tolerated this well. She is here today to receive her 6th dose. No history of pathologic fracture or ONJ. Has 2 servings of dietary calcium per day in the form of milk and yogurt. Also takes Calcium Citrate 250 mg PO daily. Does not take Vitamin D. Denies ever using PPI, anticoagulant, antiepileptic or glucocorticoid medication. Does weight bearing exercise 1 day per week in the form of group exercise class such as [employer]. In the warmer months she walks daily. Fracture history: No history of atraumatic fracture. Had broken a toe in the past. Height loss: Denies BOTTLE TESTER history: Menarche atage 15, menses always regular but heavy. Used Depoprovera injection and was amenorrhic due to this for 5 years. Off Depo for 2.5 years. Menses has resumed and is now regular. . History of Kidney stones: Denies. Family history of Osteoporosis or hip fracture. Unsure of her family history. UTD on dental cleanings and sees dentist every 6 months. No planned upcoming dental work or extractions. DXA dated 05/27/2020: FINDINGS: AP SPINE L1-L4: Current: BMD 0.695 g/cm2, T-score -4.0, Z-score -4.6, Z-score below expected range for age, 9.1% increase from baseline (<5% change is not significant). Baseline: BMD 0.637 g/cm2. LEFT FEMUR, NECK: Current: BMD 0.571 g/cm2, T-score -3.4, Z-score -3.2, Z-score below expected range for age. Baseline: BMD 0.559 g/cm2. LEFT FEMUR, TOTAL: Current: BMD 0.663 g/cm2, T-score -2.7, Z-score -2.9, Z-score below expected range for age, 6.8% increase from baseline (<5% change is not significant). Baseline: BMD 0.621 g/cm2. Labs: Laboratory Tests 08/03/21 08/03/21 15:06 15:06 Creatinine 0.83 Estimated GFR > 60 Phosphorus 4.5 25-OH Vitamin D Total 59.1 TSH 1.57 Free T4 1.10 PTH Intact 20 Calcium (PTH Intact) 9.5 On Prolia fro 5 yrs . No fx since last visit [facility] Medical History Dysphagia Lump in neck Anxiety COVID-19 vaccine administered Cerebral palsy Vitamin D deficiency Osteoporosis Foot pain Psoriasis Hypothyroidism Surgical History Hx of cataract removal with insertion of prosthetic lens History of surgery Hx of oral surgery H/O thyroidectomy Family History Father No problems noted. Mother Cancer Brother No problems noted. Social History Household Members Other:: shared living via [employer] Housing: House Are you a primary animal care taker to a significant other at home: No Do you presently have visiting nurse or other home services: Yes (lives in shared living) Alcohol intake: current Alcohol intake frequency: holidays/special occasions only Alcohol type: beer Patient Tobacco Use Status: Never used Tobacco e-Cigarette/Vaping Use: Never Used Second Hand Smoke Exposure: No Advance Directives Date on File: 05/24/21 service: No Current occupational status: employed and disabled Current occupation: [employer] Cognitive needs: No Hearing needs: No Vision needs: No Physical Exam Vital Signs: Last Vital Signs Pulse 78 03/12/25 16:03 BP 128/88 03/12/25 16:03 Pulse Ox 99 03/12/25 16:03 Oxygen Delivery Method Room Air 03/12/25 16:03 BMI result Body Mass Index 29.5 Office Meds Prolia 60 mg/mL subcutaneous syringe Performing Provider: Brian Elena MD Performing Location: [facility] Endocrinology Administered by: Anel Santiago RN on 03/12/25 16:15 Dose Route Admin Location Dispensed Lot Number Expiration Date NDC De Icer Finisher 60 mg subcut Right Upper Arm 1 mL [id number] 05/05/27 98409-527-33 [employer] Assessment & Plan Assessment & Plan (1) Osteoporosis: Code(s): M81.0 - Age-related osteoporosis without current pathological fracture Category: Medical Qualifiers: Osteoporosis type: unspecified Presence of current pathological fracture: unspecified Qualified Code(s): M81.0 - Age-related osteoporosis without current pathological fracture Plan: 48-year-old female with a history of osteoporosis with negative secondary workup currently being treated with Prolia. Plan is to continue the Prolia. Would continue Prolia for a full 5-10 years course. We will repeat DEXA in 1 year's time Orders: Orders AMB Denosumab Injection Practice Supplied 03/12/25 M81.0 - Age-related osteoporosis without current pathological fracture Coding Level of Care Code Est Pt Level 3 (28357) Diagnoses Osteoporosis, unspecified osteoporosis type, unspecified pathological fracture presence M81.0 Osteoporosis type: unspecified Presence of current pathological fracture: unspecified
[2025-03-12 16:03] VITALS: BP 128/88; PULSE 78; O2SAT 99; BMI 29.5
--- OUTSIDE RECORDS SUMMARY | 2025-03-12 16:29 | XMS_ITS | Clinical Summary ---
Author Organization [facility] Address [address] [place] [address] Care Team Providers Care Instructor Pilot Name Role Phone JustineOusmane Mariela Primary Care Pro vider Encounters Date Type Department Care Team Description 01/23/2025 Telephone Obstetrics and Gynecology - [address] [phone] Amy Harrell MD Medication Problem 01/22/2025 Telephone Obstetrics and Gynecology - [address] [phone] Amy Harrell MD Medication Problem from Last [...] Vaccine (2023-2 5 season) 2024 Influenza Vaccine (Season Ended) 2025 09/14/2010 HIB Vaccines Aged Out No longer [...] age to complete this topic Meningococcal B Vaccine Aged Out No l onger eligible based on patient's age to complete [...] AM EDT Other psoriasis Cerebral palsy, unspecified ([facility] V24, [facility] V28) Thyrotoxicosis, unspecified without thyrotoxic crisis or storm [...] Recently Relevant to Health Maintenance Care Teams Instructor Pilot Relationship Specialty Start Date End Date Mariela Alvarez DO PCP - General Internal Medicine 11/13/14
== END 2025-03-12 16:13 | disposition home or self-care (01) ==
LOC: HO.ENCR 16:00
PROVIDERS: PCP Internal Medicine; Visit Provider Internal Medicine Endocrinology, Diabetes & Metabolism
DX: M81.0 Age-related osteoporosis without current pathological fracture (principal)
CPT/HCPCS: 99213

== ENCOUNTER → 2025-03-12 15:59 | Outpatient (BNVA) | payer MEDICARE, MEDICAID, SELFPAY | PROVIDERS: PCP Internal Medicine; Visit Provider Internal Medicine Endocrinology, Diabetes & Metabolism | DX: M81.0 Age-related osteoporosis without current pathological fracture (principal) | CPT/HCPCS: 96372; 99212; J0897 ==

== ENCOUNTER 2025-04-12 07:48 | Outpatient (REF) | payer MEDICARE, MEDICAID, SELFPAY ==
[2025-04-12 09:50] LABS: Alanine Aminotransferase 10 U/L (0-31); Albumin Level 3.8 g/dL (3.5-5.0); Alkaline Phosphatase 45 U/L (39-117); Anion Gap 11 (12-20); Aspartate Amino Transferase 17 U/L (5-31); Bilirubin Total 0.8 mg/dL (0.0-1.0); Blood Urea Nitrogen 20 mg/dL (9-16); Calcium 8.5 mg/dL (8.4-10.2); Carbon Dioxide 24 mmol/L (22-29); Chloride 114 mmol/L (96-108); Estimated Glomerular Filt Rate > 60; Glucose Fasting 98 mg/dL (60-99); Potassium 3.7 mmol/L (3.3-5.1); Sodium 145 mmol/L (135-145); Total Protein 6.7 g/dL (6.5-8.0)
== END 2025-04-12 07:49 | disposition home or self-care (01) ==
LOC: HO.LAB 07:48
PROVIDERS: PCP Internal Medicine; Visit Provider Internal Medicine
DX: E03.9 Hypothyroidism, unspecified (principal); R73.02 Impaired glucose tolerance (oral)
CPT/HCPCS: 36415; 80053; 84443

== ENCOUNTER 2025-04-23 08:01 | Outpatient (AMB) | payer MEDICARE, MEDICAID, SELFPAY ==
--- NOTE | 2025-04-23 08:13 | MHC.PC.OV ---
Vital Signs 04/23/25 08:14 Height 5 ft 4.25 in Weight 176 lb 9.444 oz BMI 30.1 BP 128/80 Blood Pressure Location Lt brachial Position Sitting Intake Visit Reasons: FOLLOW UP 6 MONTHS GLUCOSE Intake Note: Patient here for a 6 month follow up glucose Toolroom Checker Required: No Accompanied by: assistant prosecuting attorney Allergies Seasonal Allergies Allergy (Mild, Verified 04/23/25 08:35) itchy Medication List - Last Reconciled 04/23/25 by Kellie Phillips MD calcipotriene 0.005% 1 appl topical DAILY calcium citrate 250 mg PO QAM cetirizine (Zyrtec) 10 mg PO BID PRN 30 days chlorhexidine gluconate 0.12% PO cholecalciferol (vitamin D3) 25 mcg PO DAILY 90 days denosumab (Prolia) 60 mg subcut [id number] fluoxetine 10 mg PO DAILY 90 days [incontinence pads As directed] ketoconazole 2% 1 appl topical BID levothyroxine 88 mcg PO DAILY 90 days lorazepam 0.5 mg PO DAILY PRN 30 days norethindrone ac-eth estradiol 1-20 mg-mcg (Junel) tabs PO DAILY olopatadine 0.1% 1 drp ophthalmic (eye) BID triamcinolone acetonide 0.1% 1 appl topical DAILY Tobacco use date assessed: 04/23/25 Dental Screening Dental Screen Date: 04/23/25 Did you have a dental visit in the last 12 months?: Yes Did you have a dental problem in the last 6 months where you did not have access to dental care?: No Was dental information given to patient?: Patient has dentist HPI HPI Comments History of Present Illness Details This is a 50-year-old female with hypothyroidism, osteoporosis, mild major depression, anxiety, impaired glucose tolerance and low vitamin-D that comes today accompanied by assistant prosecuting attorney for follow-up on her conditions. She has cerebral palsy but is able to walk with no assistive device. TSH is low and levothyroxine was decreased. Thyroid function test will be repeated in 6 weeks. On Prolia for osteoporosis and that is follow by Rheumatology. Depression stable with fluoxetine but assistant prosecuting attorney has noticed that she is picking her skin more and I will increase fluoxetine for her anxiety and depression. Had elevated blood glucose but when repeated was normal and has changed some dietary habits. On vitamin-D supplements and last vitamin-D levels were normal. No chest pain or shortness on breath. [facility] Medical History (Updated 04/23/25 @ 08:45 by Kellie Phillips MD) Depression Lump in neck Anxiety COVID-19 vaccine administered Cerebral palsy Vitamin D deficiency Osteoporosis Foot pain Psoriasis Hypothyroidism Surgical History Hx of cataract removal with insertion of prosthetic lens History of surgery Hx of oral surgery H/O thyroidectomy Family History Father No problems noted. Mother Cancer Brother No problems noted. Social History Household Members Other:: shared living via [employer] Housing: House Are you a primary daycare manager to a significant other at home: No Do you presently have visiting nurse or other home services: Yes (lives in shared living) Alcohol intake: current Alcohol intake frequency: holidays/special occasions only Alcohol type: beer Patient Tobacco Use Status: Never used Tobacco e-Cigarette/Vaping Use: Never Used Second Hand Smoke Exposure: No Advance Directives Date on File: 05/24/21 service: No Current occupational status: employed and disabled Current occupation: [employer] Cognitive needs: No Hearing needs: No Vision needs: No Questionnaire PHQ-9 Over the last 2 weeks, how often have you been bothered by any of the following problems? 1. Little interest or pleasure in doing things: not at all 2. Feeling down, depressed, or hopeless: not at all 3. Trouble falling or staying asleep, or sleeping too much: nearly every day 4. Feeling tired or having little energy: nearly every day 5. Poor appetite or overeating: not at all 6. Feeling bad about yourself - or that you are a failure or have let yourself or your family down: not at all 7. Trouble concentrating on things, such as reading the newspaper or watching television: not at all 8. Moving or speaking so slowly that other people could have noticed. Or the opposite - being so fidgety or restless that you have been moving around a lot more than usual: not at all 9. Thoughts that you would be better off or of hurting yourself in some way: not at all Total score: 6 Depression Screening Interpretation: Positive Depression Screening Follow-up: Existing condition, In treatment and Follow-up Visit Requested Depression Screening Done: Yes 05937 - PHQ-9 Billing: Yes Source: Developed by Drs. Brian Medina, Tori Purvis, Eric Carrillo and colleagues, with an educational rommel from [employer]. Thrive Questionnaire Date Thrive assessed: 04/23/25 I am a: Parent/Caregiver What is your living situation today?: I have a steady place to live Within the past 12 months, did the food you bought not last and you didn't have the money to get more?: Never true Within the past 12 months, did you worry whether your food would run out before you got money to buy more?: Never true Do you have trouble paying for medicines?: No Do you have trouble getting transportation to medical appointments?: No Do you have trouble paying your heating and electricity bill?: No Do you have trouble taking care of your child, family member or friend?: No Do you have trouble with day-to-day activities such as bathing, preparing meals, shopping, managing finances, etc.?: No Are you currently unemployed and looking for a job?: No Are you interested in more education?: No Please select the resources that you would like help with: None Currently or been in a relationship where the following occur: I choose not to answer THRIVE Score: 0 AUDIT C Alcohol Use Questionnaire (AUDIT-C) 1. How often do you have a drink containing alcohol?: 2-4 times a month 2. How many drinks containing alcohol do you have on a typical day when you are drinking?: 1 or 2 3. How often do you have six or more drinks on one occasion?: Never Total Score: 2 Score Reviewed/Action Taken: No JAC-7 AMB Questionnaire JAC-7 Date JAC - 7 assessed: 04/23/25 Feeling nervous, anxious, or on edge: 1 = Several days Not being able to stop or control worryin = Not at all Worrying too much about different things: 1 = Several days Trouble relaxin = Several days Being so restless that it is hard to sit still: 0 = Not at all Becoming easily annoyed or irritable: 0 = Not at all Feeling afraid as if something awful might happen: 0 = Not at all Total JAC-7 score (0-4 normal; 5-9 mild; 10-14 moderate; 15-21 severe): 3 Source: Developed by Drs. Brian Medina, Tori Purvis, Eric Carrillo and colleagues, with an educational rommel from [employer]. JAC-7 Assessment Billing JAC-7 Assessment Tool: JAC-7 Assessment 85588 Review of Systems Const All systems reviewed & are unremarkable except as noted in HPI and below Card Denies chest pain at rest, Denies chest pain with activity, Denies edema, Denies irregular heart rhythm, Denies claudication, Denies dyspnea, Denies dyspnea on exertion, Denies orthopnea, Denies paroxysmal nocturnal dyspnea and Denies slow heart rate Resp Denies cough, Denies dyspnea and Denies dyspnea on exertion GI Denies abdominal pain, Denies change in bowel habits, Denies excessive flatus, Denies nausea and Denies vomiting Physical exam (Primary Care) Vital Signs: Last Vital Signs BP 128/80 04/23/25 08:14 BMI result Body Mass Index 30.1 Tobacco/Smoking Status: Tobacco use Status Tobacco use date assessed 04/23/25 04/23/25 08:20 Patient Tobacco Use Status Never used Tobacco 04/23/25 08:20 e-Cigarette/Vaping Use Never Used 04/23/25 08:20 PHQ-9: PHQ-9 Score PHQ-9: Total score 6 04/23/25 08:42 Depression Screening Interpretation: Positive Depression Screening Follow-up: Existing condition, In treatment and Follow-up Visit Requested Thrive Assessment: Date of Thrive Assessment Date Thrive assessed 04/23/25 04/23/25 08:20 Currently or been in a relationship where the following occur: I choose not to answer Resp Effort & Inspection: normal respiratory effort Auscultation: clear to auscultation bilaterally Cardio Jugular venous distension: no JVD Rate: regular rate Rhythm: regular rhythm Heart sounds: S1 normal heart sound present and S2 normal heart sound present Extrem General: Yes full ROM Coding Level of Care Code Est Pt Level 4 (07087) Complex EM visit Add On G2211 Diagnoses Mild major depression F32.0 Anxiety F41.9 Acquired hypothyroidism E03.9 Hypothyroidism type: acquired Osteoporosis, unspecified osteoporosis type, unspecified pathological fracture presence M81.0 Osteoporosis type: unspecified Presence of current pathological fracture: unspecified Other cerebral palsy G80.8 Cerebral palsy type: other type Hypovitaminosis D E55.9 Additional Codes JAC-7 Assessment Billing - JAC-7 Assessment Tool: JAC-7 Assessment 97961 ([id number]) PHQ-9 - 27719 - PHQ-9 Billing: Yes ([id number]) Time Spent (min) 23 Assessment & Plan Assessment & Plan (1) Mild major depression: Code(s): F32.0 - Major depressive disorder, single episode, mild Category: Medical (2) Anxiety: Code(s): F41.9 - Anxiety disorder, unspecified Category: Medical (3) Hypothyroidism: Code(s): E03.9 - Hypothyroidism, unspecified Category: Medical Qualifiers: Hypothyroidism type: acquired Qualified Code(s): E03.9 - Hypothyroidism, unspecified (4) Osteoporosis: Code(s): M81.0 - Age-related osteoporosis without current pathological fracture Category: Medical Qualifiers: Osteoporosis type: unspecified Presence of current pathological fracture: unspecified Qualified Code(s): M81.0 - Age-related osteoporosis without current pathological fracture (5) Cerebral palsy: Comment: ambulatory-hesitant w/stairs, etc.-alert/oriented-signs own consents Code(s): G80.9 - Cerebral palsy, unspecified Category: Medical Qualifiers: Cerebral palsy type: other type Qualified Code(s): G80.8 - Other cerebral palsy (6) Hypovitaminosis D: Code(s): E55.9 - Vitamin D deficiency, unspecified Category: Medical Plan Continue vitamin-D supplements. Continue Prolia with rheumatology. Decrease levothyroxine and repeat thyroid function test in 6 weeks. Increase fluoxetine for depression with anxiety. Repeat glucose in 6 months and continue low-carbohydrate diet. Orders: Orders Comprehensive [place]. Panel Fast 6 Months R73.02 - Impaired glucose tolerance (oral) Lipid Panel 6 Months E78.5 - Hyperlipidemia, unspecified Medications: New fluoxetine 20 mg PO DAILY 90 tabs 1RF 90 days Discontinued fluoxetine Discontinued Reason: Patient Completed Course 10 mg PO DAILY 90 days 90 caps 1RF F32.0 - Major depressive disorder, single episode, mild
[2025-04-23 08:14] VITALS: BP 128/80; BMI 30.1
== END 2025-04-23 08:44 | disposition home or self-care (01) ==
LOC: HO.HMCH 08:02
PROVIDERS: PCP Internal Medicine; Visit Provider Internal Medicine
DX: E03.9 Hypothyroidism, unspecified (principal); G80.8 Other cerebral palsy; F32.0 Major depressive disorder, single episode, mild; F41.9 Anxiety disorder, unspecified; M81.0 Age-related osteoporosis without current pathological fracture; E55.9 Vitamin D deficiency, unspecified

== ENCOUNTER → 2025-04-23 08:01 | Outpatient (BNVA) | payer MEDICARE, MEDICAID, SELFPAY | PROVIDERS: PCP Internal Medicine; Visit Provider Internal Medicine | DX: F32.0 Major depressive disorder, single episode, mild (principal); F41.9 Anxiety disorder, unspecified; E03.9 Hypothyroidism, unspecified; M81.0 Age-related osteoporosis without current pathological fracture; G80.8 Other cerebral palsy; E55.9 Vitamin D deficiency, unspecified | CPT/HCPCS: 96127; 99212 ==

== ENCOUNTER 2025-08-30 08:46 | Outpatient (REF) | payer MEDICARE, MEDICAID, SELFPAY ==
[2025-08-30 10:42] LABS: Anion Gap 14 (12-20); Blood Urea Nitrogen 16 mg/dL (9-16); Calcium 9.2 mg/dL (8.4-10.2); Carbon Dioxide 26 mmol/L (22-29); Chloride 108 mmol/L (96-108); Estimated Glomerular Filt Rate > 60; Potassium 3.6 mmol/L (3.3-5.1); Sodium 144 mmol/L (135-145)
== END 2025-08-30 08:47 | disposition home or self-care (01) ==
LOC: HO.LAB 08:46
PROVIDERS: PCP Internal Medicine; Visit Provider Student in an Organized Health Care Education/Training Program
DX: M81.0 Age-related osteoporosis without current pathological fracture (principal); E55.9 Vitamin D deficiency, unspecified
CPT/HCPCS: 36415; 80048; 82306

== ENCOUNTER 2025-09-11 16:02 | Outpatient (AMB) | payer MEDICARE, MEDICAID, SELFPAY ==
--- NOTE | 2025-09-11 16:04 | MHC.OFFVIS ---
Vital Signs 09/11/25 16:07 Height 5 ft 4.84 in Weight 179 lb 10.828 oz BMI 30.0 BP 112/78 Blood Pressure Location Lt brachial Position Sitting Pulse 71 Pulse Source Pulse Oximeter Pulse Oximetry (%) 100 Oxygen Delivery Method Room Air Intake Visit Reasons: f/u osteoporosis/prolia injection Intake Note: Patient present today for Osteoporosis and Prolia injection. Machinist 2Nd Shift Required: No Accompanied by: Care Provider Allergies Seasonal Allergies Allergy (Mild, Verified 09/11/25 16:08) itchy Medication List - Last Reconciled 09/11/25 by Brian Elena MD calcipotriene 0.005% 1 appl topical DAILY calcium citrate 250 mg PO QAM cetirizine (Zyrtec) 10 mg PO BID PRN 30 days chlorhexidine gluconate 0.12% PO cholecalciferol (vitamin D3) 25 mcg PO DAILY 90 days denosumab (Prolia) 60 mg subcut [id number] fluoxetine 20 mg PO DAILY 90 days [incontinence pads As directed] ketoconazole 2% 1 appl topical BID levothyroxine 88 mcg PO DAILY 90 days lorazepam 0.5 mg PO DAILY PRN 30 days norethindrone ac-eth estradiol 1-20 mg-mcg (Junel) tabs PO DAILY olopatadine 0.1% 1 drp ophthalmic (eye) BID triamcinolone acetonide 0.1% 1 appl topical DAILY HPI Comments Details: 50 YO Female with cerebral palsy who is seen in F/U today Osteoporosis. Vitamin D has remained WNL and she is using Calcium carbonate 600 mg PO once daily, in addition to 2 servings of dairy per day. 2. Osteoporosis: First diagnosed approximately 2013. DXA was ordered on that time due to her being on Depoprovera for 5 years. She had DXA 2016 which revealed Osteoporosis. She was started on Fosamax weekly, this was continued for approximately 2 years, and was stopped mid 2017 as she was unable to have refill sent from PCP. She tolerated fosamax well. She had DXA completed mid 2017 which revealed severe Osteoporosis of the spine and Osteoporosis of the hip. She had an unremarkable workup for secondary causes of Osteoporosis. She was started on Prolia. She has received 5 doses so far, 12/26/18, 06/24/19, 12/25/2019, 07/20/2020 and 01/22/2021. She tolerated this well. She is here today to receive her 6th dose. No history of pathologic fracture or ONJ. Has 2 servings of dietary calcium per day in the form of milk and yogurt. Also takes Calcium Citrate 250 mg PO daily. Does not take Vitamin D. Denies ever using PPI, anticoagulant, antiepileptic or glucocorticoid medication. Does weight bearing exercise 1 day per week in the form of group exercise class such as [employer]. In the warmer months she walks daily. Fracture history: No history of atraumatic fracture. Had broken a toe in the past. Height loss: Denies PARCEL POST WEIGHER history: Menarche atage 15, menses always regular but heavy. Used Depoprovera injection and was amenorrhic due to this for 5 years. Off Depo for 2.5 years. Menses has resumed and is now regular. . History of Kidney stones: Denies. Family history of Osteoporosis or hip fracture. Unsure of her family history. UTD on dental cleanings and sees dentist every 6 months. No planned upcoming dental work or extractions. DXA dated 05/27/2020: FINDINGS: AP SPINE L1-L4: Current: BMD 0.695 g/cm2, T-score -4.0, Z-score -4.6, Z-score below expected range for age, 9.1% increase from baseline (<5% change is not significant). Baseline: BMD 0.637 g/cm2. LEFT FEMUR, NECK: Current: BMD 0.571 g/cm2, T-score -3.4, Z-score -3.2, Z-score below expected range for age. Baseline: BMD 0.559 g/cm2. LEFT FEMUR, TOTAL: Current: BMD 0.663 g/cm2, T-score -2.7, Z-score -2.9, Z-score below expected range for age, 6.8% increase from baseline (<5% change is not significant). Baseline: BMD 0.621 g/cm2. Labs: Laboratory Tests 08/03/21 08/03/21 15:06 15:06 Creatinine 0.83 Estimated GFR > 60 Phosphorus 4.5 25-OH Vitamin D Total 59.1 TSH 1.57 Free T4 1.10 PTH Intact 20 Calcium (PTH Intact) 9.5 On Prolia fro 5 yrs . No fx since last visit [facility] bone density [facility] Medical History (Updated 04/23/25 @ 08:45 by Kellie Phillips MD) Depression Lump in neck Anxiety COVID-19 vaccine administered Cerebral palsy Vitamin D deficiency Osteoporosis Foot pain Psoriasis Hypothyroidism Surgical History Hx of cataract removal with insertion of prosthetic lens History of surgery Hx of oral surgery H/O thyroidectomy Family History Father No problems noted. Mother Cancer Brother No problems noted. Social History Household Members Other:: shared living via [employer] Housing: House Are you a primary health care legal assistant to a significant other at home: No Do you presently have visiting nurse or other home services: Yes (lives in shared living) Alcohol intake: current Alcohol intake frequency: holidays/special occasions only Alcohol type: beer Patient Tobacco Use Status: Never used Tobacco e-Cigarette/Vaping Use: Never Used Second Hand Smoke Exposure: No Advance Directives Date on File: 05/24/21 service: No Current occupational status: employed and disabled Current occupation: [employer] Cognitive needs: No Hearing needs: No Vision needs: No Physical Exam Vital Signs: Last Vital Signs Pulse 71 09/11/25 16:07 BP 112/78 09/11/25 16:07 Pulse Ox 100 09/11/25 16:07 Oxygen Delivery Method Room Air 09/11/25 16:07 BMI result Body Mass Index 30.0 Office Meds Prolia 60 mg/mL subcutaneous syringe Performing Provider: Brian Elena MD Performing Location: [facility] [place] Endocrinology Administered by: Anel Santiago RN on 09/11/25 16:27 Dose Route Admin Location Dispensed Lot Number Expiration Date NDC Cnc Wood Lathe Operator 60 mg subcut right upper arm 1 mL [id number] 11/05/27 26534-230-19 [employer] Total Dispensed Waste 1 mL 0 % Comments: Pt accompanied by CHEMICAL PROJECT ENGINEER. No adverse reactions reported from previous injection. Pt tolerated injection well. No further questions at this time. Assessment & Plan Assessment & Plan (1) Osteoporosis: Code(s): M81.0 - Age-related osteoporosis without current pathological fracture Category: Medical Qualifiers: Osteoporosis type: unspecified Presence of current pathological fracture: unspecified Qualified Code(s): M81.0 - Age-related osteoporosis without current pathological fracture Plan: 48-year-old female with a history of osteoporosis with negative secondary workup currently being treated with Prolia. Plan is to continue the Prolia. Would continue Prolia for a full 5-10 years course. We will repeat DEXA in 01/2026 . Depending on results of DEXA, could consider transition to anabolic agent specifically Evenity which might have some effect on building bone density in his patient would very low bone density and high risk of fracture with continued Prolia. If bone density has improved further, could transition to either IV Reclast or alendronate. We will have patient return in 02/2026 to discuss. Would not transition to other anabolic like Forteo or Tymlos as this transition would have negative effects on the bone Orders: Orders AMB Denosumab Injection Practice Supplied Today M81.0 - Age-related osteoporosis without current pathological fracture XR DEXA axial skeleton Today M81.0 - Age-related osteoporosis without current pathological fracture Coding Diagnoses Osteoporosis, unspecified osteoporosis type, unspecified pathological fracture presence M81.0 Osteoporosis type: unspecified Presence of current pathological fracture: unspecified
[2025-09-11 16:07] VITALS: BP 112/78; PULSE 71; O2SAT 100
--- OUTSIDE RECORDS SUMMARY | 2025-09-11 18:33 | XMS_ITS | Clinical Summary ---
Author Organization [facility] Address [address] [place] [address] Care Team Providers Care Dielectric Testing Machine Operator Name Role Phone JustineMariela Romeo DO Primary Care Pro vider Medications Aurovela 11/25, 21, 1-20 mg-mcg per tablet TAKE 1 TABLET BY MOUTH EVERY DAY *ONLY TAKE ACTIVE TABLETS* 109 tablet 07/15/2025 Active Surgical History Surgery Date Site/Laterality Comments CARDIAC [...] 06/27/2024 2:58 PM EDT Plan of Treatment Upcoming Encounters Date Type Department Care Team (Late st Contact Info) Description 01/29/2026 2:00 PM EDT Office Visit Obstetrics & Gynecology - [facility] [address] [place] [id number] Rose Mary Correa, [facility] [address] [place] [address] Health Maintenance Due Date Last Done Comments Colorectal Cancer Screening: Colonoscopy 1977 Hepatitis B Vaccines (1 of 3 - 19+ 3-dose series) 1996 Cervical Cancer Screening: HPV 1998 Breast Cancer Screening 06/23/2019 06/23/2017 Cholesterol Screening (Lipid Panel) 10/08/2022 HIV Screening 10/08/2022 Hepatitis C Screening 10/08/2022 Medicare Annual Wellness Visit 10/08/2022 Social Influencers of Health Screening 10/08/2022 DTaP,Tdap,and Td Vaccines (3 - Td or Tdap) 05/14/2024 05/14/2014, 02/22/2007 Depression Screening 11/06/2024 COVID-19 Vaccine ( - 2023-2 5 season) 2025 Influenza Vaccine (#1) 2025 09/14/2010 RSV Immunization Adult Patients (1 - 1-dose 75+ series) 2052 HIB Vaccines Aged Out No longer eligi [...] 5 Years) and At-Risk Patients (6 to 49 Years) Aged Out No longer eligible b [...] AM EDT Other psoriasis Cerebral palsy, unspecified ([facility] V24, [facility] V28) Thyrotoxicosis, unspecified without thyrotoxic crisis or [...] reviewed with CAD and compared to previous. The breasts are composed of fatty and fibroglandular tissue. No suspicious mass, architectural distortion or suspicious calcifications [...] or Most Recently Relevant to Health Maintenance Insurance MEDICARE MEDICAID - [place] Care Teams Dielectric Testing Machine Operator Relationship Specialty Start Date End Date Mariela Alvarez DO [facility] [address] [place] [address] PCP - General Internal Medicine 11/13/14
--- OUTSIDE RECORDS SUMMARY | 2025-09-11 18:33 | XMS_ITS | Clinical Summary ---
Author Organization [facility] Address [address] [place] [id number] Phone Care Team Providers Care Mailroom Clerk Name Role Phone Leslie Zamarripa MD Primary Care Provider [phone] Allergies No known active allergies Medications doxycycline hyclate (DORYX) 100 MG tablet Take 1 tablet (100 mg total) by mouth 2 (two) times a day. 14 tablet 10/01/2017 Active levothyroxine (SYNTHROID, LEVOTHROID) 100 MCG tablet Take 1 tablet by mouth every morning. 09/26/2024 Active VITAMIN D3 25 mcg (1,000 unit) capsule Take 1 capsule by mouth every morning. 10/13/2024 Active calcium citrate 250 mg calcium Tab Take 1 tablet by mouth every morning. 10/09/2024 Active neomycin-polymy cleo B-hydrocortison e (CORTOMYCIN) 3.5-10,000-1 mg/mL-unit/mL-% otic suspension 3 drops by Each Ear route 4 (four) times a day. 3 mL 12/14/2024 Active Active Problems No known active problems Social History Tobacco Use Types Packs/Day Years Used Date Smoking Tobacco: Never Smokeless Tobacco: Never Alcohol Use Standard Drinks/Week Comments Yes 0 (1 standard drink = 0.6 oz pur e alcohol) Education Answer Date Recorded Are you interested in more education? Not on ford e 12/14/2024 Are you concerned about learning? Not on file 12/14/2024 No 12/14/2024 No 12/14/2024 Digital Access Answer Date Recorded No 12/14/2024 No 12/14/2024 Reliable internet access at home? Not on file 12/14/2024 Device with a working camera? Not on file Comments Unknown Sex and Gender Information Value Date Recorded Sex Assigned at Not on file Legal Sex Female 9:26 PM EDT Gender Identity Not on file Sexual Orientation Not on file Last Filed Vital Signs Vital Sign Reading Time Taken Comments Blood Pressure 128/82 12/14/2024 10:07 AM EST Pulse 72 12/14/2024 10:07 AM EST Temperature 36.9 C (98.4 F) 12/14/2024 10:07 AM EST Respiratory Rate 18 12/14/2024 10:07 AM EST Oxygen Saturation 94% 12/14/2024 10:07 AM EST Inhaled Oxygen Concentration - - Weight 74.8 kg (165 lb) 12/14/2024 10:07 AM EST Height 165.1 cm (5' 5 ) 12/14/2024 10:07 AM EST Body Mass Index 27.46 12/14/2024 10:07 AM EST Plan of Treatment Health Maintenance Due Date Last Done Comments LIPID PANEL 1977 TSH LEVEL 1977 DEPRESSION SCREENING 1989 HEPATITIS C SCREENING 1995 HIV ONE-TIME SCREENING (18-65 YEARS) 1995 PAP SMEAR 1998 SCREENING FOR DIABETES 2012 MAMMOGRAM 2017 COLOGUARD 2022 COLONOSCOPY 2022 COLORECTAL CANCER SCREENING 2022 FIT TEST 2022 FOBT 2022 SIGMOIDOSCOPY 2022 VIRTUAL COLONOSCOPY 2022 Adult Td,Tdap Booster 05/14/2024 05/14/2014 , 03/11/2013, 11/06/2012, Additional history exists INFLUENZA VACCINE (#1) 2025 06/22/2020, 2009 COVID-19 VACCINE (2 - 2024- season) 2025 12/16/2020 SMOKING STATUS SCREENING (Once After 26 Yrs) Completed 12/14/2024 HEPATITIS A VACCINES Aged Out No long er eligible based on patient's age to complete this topic HIB VACCINES Aged Out No longer eligi ble based on patient's age to complete this topic MENINGOCOCCAL VACCINES (ACWY) Aged Out No longer eligible based on patient's age to complete this topic MENINGOCOCCAL VACCINES (B) Aged Out N o longer eligible based on patient's age to complete this topic PNEUMOCOCCAL VACCINES (0-49 years) Aged Out No longer eligible based on patient's age to complete this topic Medical Devices Not on file Insurance [place] B Member Subscriber Plan / Payer (Ef fective 2003-Present) Name:AdilenecyndiRose Mary Lennox Member ID:[id number] Relation to Subscriber:Self Name:Rose Mary Warner Lennox Subscriber ID:[id number] Payer ID:[id number] Group ID:Not on file Type:Medicare Address: [employer] [address] [place] [address] [place] & B Member Subscriber Plan / Payer (Ef fective 2003-Present) Name:Rose Mary Warner Member ID:[id number] Relation to Subscriber:Self Name:Rose Mary Warner Lennox Subscriber ID:[id number] Payer ID:[id number] Group ID:Not on file Type:Medicare Address: [employer] [address] [place] [address] [place], [place] [address]HEALTH MEDICARE PART A & B Member Subscriber Plan / Payer (Ef fective 2003-Present) Name:Rose Mary Warner Member ID:[id number] Relation to Subscriber:Self Name:Rose Mary Warner Subscriber ID:[id number] Payer ID:[id number] Group ID:Not on file Type:Medicare Address: [employer] [address] [place] [address] [place] B Member Subscriber Plan / Payer (Ef fective 2003-Present) Name:Rose Mary Warner Member ID:[id number] Relation to Subscriber:Self Name:Rose Mary Warner Subscriber ID:[id number] Payer ID:[id number] Group ID:Not on file Type:Medicare Address: [employer] [address] [place] [address] [place] & B Member Subscriber Plan / Payer (Ef fective 2003-Present) Name:Rose Mary Warner Member ID:[id number] Relation to Subscriber:Self Name:Rose Mary Warner Subscriber ID:[id number] Payer ID:[id number] Group ID:Not on file Type:Medicare Address: [employer] [address] [place], [place] [id number] [place] B Member Subscriber Plan / Payer (Ef fective 2003-Present) Name:Rose Mary Warner Lennox Member ID:[id number] Relation to Subscriber:Self Name:Rose Mary Warner Subscriber ID:[id number] Payer ID:[id number] Group ID:Not on file Type:Medicare Address: [employer] [address] [place] [address] [place] [address] MEDICARE PART A & B Member Subscriber Plan / Payer ( fective 2003-Present) Name:AdilenecyndiZackaryRose Mary L Member ID:[id number] Relation to Subscriber:Self Name:Adilenecyndi Rose Mary High Subscriber ID:[id number] Payer ID:[id number] Group ID:Not on file Type:Medicare Address: [employer] [address] [place] [id number] Care Teams Mailroom Clerk Relationship Specialty Start Date End Date Leslie Zamarripa MD [address] [place] [address] PCP - General Internal Medicine 10/01/17 Additional Source Comments The information contained in this document represents components of the legal health record. It is not the complete legal health record.[facility]
== END 2025-09-11 16:27 | disposition home or self-care (01) ==
LOC: HO.ENCR 16:02
PROVIDERS: PCP Internal Medicine; Visit Provider Internal Medicine Endocrinology, Diabetes & Metabolism
DX: M81.0 Age-related osteoporosis without current pathological fracture (principal)

== ENCOUNTER → 2025-09-11 16:02 | Outpatient (BNVA) | payer MEDICARE, MEDICAID, SELFPAY | PROVIDERS: PCP Internal Medicine; Visit Provider Internal Medicine Endocrinology, Diabetes & Metabolism | DX: M81.0 Age-related osteoporosis without current pathological fracture (principal); Z79.899 Other long term (current) drug therapy; Z79.620 Long term (current) use of immunosuppressive biologic | CPT/HCPCS: 96372; 99212; J0897 ==

== ENCOUNTER 2025-10-23 07:31 | Outpatient (AMB) | payer MEDICARE, MEDICAID, SELFPAY ==
--- NOTE | 2025-10-23 07:33 | A.OFFPC_ITS ---
Intake Visit Reasons: PHYSICAL Maintenance Operator Required: No Accompanied by: Self / Same As Patient Allergies Seasonal Allergies Allergy (Mild, Verified 10/23/25 07:33) itchy Tobacco use date assessed: 04/23/25 Dental Screening Dental Screen Date: 04/23/25 [facility] Medical History (Updated 04/23/25 @ 08:45 by Kellie Phillips MD) Depression Lump in neck Anxiety COVID-19 vaccine administered Cerebral palsy Vitamin D deficiency Osteoporosis Foot pain Psoriasis Hypothyroidism Surgical History Hx of cataract removal with insertion of prosthetic lens History of surgery Hx of oral surgery H/O thyroidectomy Family History Father No problems noted. Mother Cancer Brother No problems noted. Social History Household Members Other:: shared living via [facility] [employer] [facility] Housing: House Are you a primary healthcare science specialist to a significant other at home: No Do you presently have visiting nurse or other home services: Yes (lives in shared living) Alcohol intake: current Alcohol intake frequency: holidays/special occasions only Alcohol type: beer Patient Tobacco Use Status: Never used Tobacco e-Cigarette/Vaping Use: Never Used Second Hand Smoke Exposure: No Advance Directives Date on File: 05/24/21 service: No Current occupational status: employed and disabled Current occupation: [employer] Cognitive needs: No Hearing needs: No Vision needs: No Questionnaire Thrive Questionnaire Date Thrive assessed: 04/23/25 I am a: Parent/Caregiver What is your living situation today?: I have a steady place to live Within the past 12 months, did the food you bought not last and you didn't have the money to get more?: Never true Within the past 12 months, did you worry whether your food would run out before you got money to buy more?: Never true Do you have trouble paying for medicines?: No Do you have trouble getting transportation to medical appointments?: No Do you have trouble paying your heating and electricity bill?: No Do you have trouble taking care of your child, family member or friend?: No Do you have trouble with day-to-day activities such as bathing, preparing meals, shopping, managing finances, etc.?: No Are you currently unemployed and looking for a job?: No Are you interested in more education?: No Please select the resources that you would like help with: None Currently or been in a relationship where the following occur: I choose not to answer THRIVE Score: 0 JAC-7 AMB Questionnaire JAC-7 Date JAC - 7 assessed: 04/23/25 Source: Developed by Drs. Brian Medina, Tori Purvis, Eric Carrillo and colleagues, with an educational rommel from [employer]. Physical exam (Primary Care) Tobacco/Smoking Status: Tobacco use Status Tobacco use date assessed 04/23/25 04/23/25 08:20 Patient Tobacco Use Status Never used Tobacco 04/23/25 08:20 e-Cigarette/Vaping Use Never Used 04/23/25 08:20 Thrive Assessment: Date of Thrive Assessment Date Thrive assessed 04/23/25 04/23/25 08:20 Currently or been in a relationship where the following occur: I choose not to answer Coding
--- NOTE | 2025-10-23 07:34 | A.OFFVIS_ITS ---
Intake Vital Signs 10/23/25 07:37 Height 5 ft 4.84 in Weight 181 lb 3.52 oz BMI 30.3 BP 122/62 Blood Pressure Location Lt brachial Position Sitting Respiration 18 Pulse 80 Pulse Source Pulse Oximeter Temp 98 F Temp Source Temporal Artery Scan Pulse Oximetry (%) 98 Oxygen Delivery Method Room Air Intake Visit Reasons: PHYSICAL [place] Required: No Accompanied by: care provider-Key Allergies Seasonal Allergies Allergy (Mild, Verified 10/23/25 07:46) itchy Medication List - Last Reconciled 10/23/25 by Kellie Phillips MD calcipotriene 0.005% 1 appl topical DAILY calcium citrate 250 mg PO QAM cetirizine (Zyrtec) 10 mg PO ONCE PRN cholecalciferol (vitamin D3) 25 mcg PO DAILY 90 days denosumab (Prolia) 60 mg subcut [id number] fluoxetine 20 mg PO DAILY 90 days [incontinence pads As directed] ketoconazole 2% 1 appl topical BID ketoconazole 2% topical 2XW levothyroxine 88 mcg PO DAILY 90 days lorazepam 0.5 mg PO DAILY PRN 30 days norethindrone ac-eth estradiol 1-20 mg-mcg (Junel) tabs PO DAILY triamcinolone acetonide 0.1% 1 appl topical DAILY HPI HPI Comments History of Present Illness Details The patient is a 50 year old female presenting for a Medicare annual wellness visit. She has a history of severe osteoporosis, diagnosed via a DEXA scan in 2023, and is treated with Prolia every six months. This condition is followed by an ux design lead, and she has a follow-up DEXA scan scheduled for early next year. 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 Her past surgical history also includes bilateral cataract surgery and a pectus carinatum repair at age 11. For mental health, she has diagnoses of depression and anxiety, managed with fluoxetine 20 mg daily and lorazepam as needed. A recent PHQ-9 screening resulted in a score of 5, indicating mild depression. Her medical history is also significant for cerebral palsy with a mild developmental delay and an associated abnormal gait, though she walks without an assistive device. She has seasonal allergies, taking cetirizine as needed, and uses a topical cream for eczema and sees a general internal medicine doctor for psoriasis. For contraception, she uses Junelle and sees a dry cleaner presser; her last Pap smear was negative and required anesthesia for the procedure. Her mother has a history of skin cancer. The patient has never smoked and drinks beer occasionally on holidays. The patient was reminded to keep her scheduled mammogram appointment in November. An order for Cologuard was placed to complete her colon cancer screening. PPP handed to patient. [place] of care reviewed and updated. [facility] Medical History Depression Lump in neck Anxiety COVID-19 vaccine administered Cerebral palsy Vitamin D deficiency Osteoporosis Foot pain Psoriasis Hypothyroidism Surgical History Hx of cataract removal with insertion of prosthetic lens History of surgery Hx of oral surgery H/O thyroidectomy Family History (Updated 10/23/25 @ 07:55 by Kellie Phillips MD) Father No problems noted. Mother Cancer Brother No problems noted. Social History Household Members Other:: shared living via [employer] Housing: House Are you a primary healthcare risk control consultant to a significant other at home: No Do you presently have visiting nurse or other home services: Yes (lives in shared living) Alcohol intake: current Alcohol intake frequency: holidays/special occasions only Alcohol type: beer Patient Tobacco Use Status: Never used Tobacco e-Cigarette/Vaping Use: Never Used Second Hand Smoke Exposure: No Advance Directives Date on File: 05/24/21 service: No Current occupational status: employed and disabled Current occupation: [employer] Cognitive needs: No Hearing needs: No Vision needs: No Questionnaire Medicare Wellness Checkup What is your [age]?: 65-69 (50 years) What gender do you identify with?: female During the past 4 weeks, how much have you been bothered by emotional problems such as feeling anxious, depressed, irritable, sad or downhearted, and blue?: slightly During the past 4 weeks, has your physical & emotional health limited your social activities with family, friends, neighbors, or groups?: not at all During the past 4 weeks, how much bodily pain have you generally had?: no pain During the past 4 weeks, was someone available to help you if you needed & wanted help?: yes, as much as I wanted During the past 4 weeks, what was the hardest physical activity you could do for at least 2 minutes?: light Can you get to places out of walking distance without help? (For eg., can you travel alone on buses, taxis or drive your car?): No Can you go shopping for groceries or clothes without someone's help?: No Can you prepare your own meals?: Yes Can you do your housework without help?: Yes Because of any health problems, do you need the help of another person with your personal care needs such as eating, bathing, dressing or getting around the house?: No Can you handle your own money without help?: No During the past 4 weeks, how would you rate your health in general?: very good During the past 4 weeks how have things been going for you?: pretty well Are you having difficulties driving your car?: not applicable, I don't use a car Do you always fasten your seat belt when you are in a car?: yes, usually During past 4 weeks, have you been bothered by the following: never: Falling or dizzy when standing up, Sexual problems?, Trouble eating well? and Problems using the telephone? and sometimes: Teeth or denture problems? and Tiredness or fatigue? Have you fallen 2 or more times in the past year?: No Are you afraid of falling?: Yes Are you a smoker?: no During the past 4 weeks, how many drinks of wine, beer, or other alcoholic beverages did you have?: 1 drink or less per week Do you exercise for about 20 minutes 3 or more times a week?: no, I usually do not exercise this much Have you been given information to help with the following?: no: Hazards in your house that might hurt you? and no: Keeping track of your medications? How often do you have trouble taking medicines the way you have been told to take them?: I do not have to take medicine How confident are you that you can control & manage most of your health problems?: not very confident What is your race?: White Mini Mental State Exam (MMSE) Orientation What is the (year) (season) (date) (day) (month)?: year, season, date, day and month Where are we (state) (county) (town or city) (hospital) (floor)?: state, county, town or city and hospital/clinic Registration Name of 3 unrelated objects clearly and slowly, then ask patient to repeat all 3 of them. (1st repeat determines score. Make sure they can repeat all three): object 1, object 2 and object 3 Attention & Calculation (CHOOSE ONE) Spell WORLD backwards (DLROW): 5 letters Language Show patient a wristwatch & ask what it is. Repeat for pencil.: watch and pencil Ask the patient to repeat the phrase 'No ifs, ands, or buts' after you.: correct Ask the patient to 'take a piece of paper with their right hand' 'fold paper in half' 'place paper on floor': take paper in right hand, fold paper in half and place paper on floor Print the sentence 'CLOSE YOUR EYES' on a piece. If patient actually closes eyes then score.: followed written direction Give patient a blank piece of paper & ask to write a sentence. Score if it contains a noun & verb.: sentence contains subject and verb Score Score: 25 Activity of Daily Living Bathing - sponge bath, tub bath or shower: receives no assistance (gets in/out by self, if usual bathing means Dressing - getting clothes from closets & drawers, including inner/outer garments & fasteners.: gets clothes & gets completely dressed without help Toileting - going to the 'toilet room' for urine/bowel elimination & cleaning self/arranging clothes: goes to toilet room, cleans self, arranges clothes without help Transfer: moves in & out of bed and chair without help (may use support object) Continence: has occasional 'accidents' Feeding: feeds self without help Total Score: 0 Information obtained from: patient Using telephone: independent Traveling: needs assistance Shopping: needs assistance Preparing meals: independent Housework: independent Taking medicine: independent Managing money: needs assistance PHQ-9 Over the last 2 weeks, how often have you been bothered by any of the following problems? 1. Little interest or pleasure in doing things: not at all 2. Feeling down, depressed, or hopeless: several days 3. Trouble falling or staying asleep, or sleeping too much: more than half the days 4. Feeling tired or having little energy: several days 5. Poor appetite or overeating: not at all 6. Feeling bad about yourself - or that you are a failure or have let yourself or your family down: several days 7. Trouble concentrating on things, such as reading the newspaper or watching television: not at all 8. Moving or speaking so slowly that other people could have noticed. Or the opposite - being so fidgety or restless that you have been moving around a lot more than usual: not at all 9. Thoughts that you would be better off or of hurting yourself in some way: not at all Total score: 5 Depression Screening Interpretation: Positive Depression Screening Follow-up: Existing condition, In treatment, Community Mental Health Worker F/U and Follow- up Visit Requested Depression Screening Done: Yes 69515 - PHQ-9 Billing: Yes Source: Developed by Drs. Brian Medina, Tori Purvis, Eric Carrillo and colleagues, with an educational rommel from [employer]...Exactly. AUDIT C Alcohol Use Questionnaire (AUDIT-C) 1. How often do you have a drink containing alcohol?: Monthly or less 2. How many drinks containing alcohol do you have on a typical day when you are drinking?: 1 or 2 3. How often do you have six or more drinks on one occasion?: Never Total Score: 1 Score Reviewed/Action Taken: No Thrive Questionnaire Date Thrive assessed: 04/23/25 I am a: Parent/Caregiver What is your living situation today?: I have a steady place to live Within the past 12 months, did the food you bought not last and you didn't have the money to get more?: Never true Within the past 12 months, did you worry whether your food would run out before you got money to buy more?: Never true Do you have trouble paying for medicines?: No Do you have trouble getting transportation to medical appointments?: No Do you have trouble paying your heating and electricity bill?: No Do you have trouble taking care of your child, family member or friend?: No Do you have trouble with day-to-day activities such as bathing, preparing meals, shopping, managing finances, etc.?: No Are you currently unemployed and looking for a job?: No Are you interested in more education?: No Please select the resources that you would like help with: None Currently or been in a relationship where the following occur: I choose not to answer THRIVE Score: 0 JAC-7 AMB Questionnaire JAC-7 Date JAC - 7 assessed: 04/23/25 Source: Developed by Drs. Brian Medina, Tori Purvis, Eric Carrillo and colleagues, with an educational rommel from [employer]...Exactly. Review of Systems Const All systems reviewed & are unremarkable except as noted in HPI and below Card Denies chest pain at rest, Denies chest pain with activity, Denies edema, Denies irregular heart rhythm, Denies claudication, Denies dyspnea, Denies dyspnea on exertion, Denies orthopnea, Denies paroxysmal nocturnal dyspnea and Denies slow heart rate Resp Denies cough, Denies dyspnea and Denies dyspnea on exertion GI Denies abdominal pain, Denies change in bowel habits, Denies excessive flatus, Denies nausea and Denies vomiting Denies urinary incontinence, Denies urinary hesitancy and Denies urinary urgency Physical Exam Vital Signs: Last Vital Signs Temp 98 F 10/23/25 07:37 Pulse 80 10/23/25 07:37 Resp 18 10/23/25 07:37 BP 122/62 10/23/25 07:37 Pulse Ox 98 10/23/25 07:37 Oxygen Delivery Method Room Air 10/23/25 07:37 BMI result Body Mass Index 30.3 Resp Effort & Inspection: normal respiratory effort Auscultation: clear to auscultation bilaterally Cardio Jugular venous distension: no JVD Rate: regular rate Rhythm: regular rhythm Heart sounds: S1 normal heart sound present and S2 normal heart sound present Neuro General: no focal motor deficits Romberg Test: Negative Assessment & Plan Assessment & Plan (1) Adult general medical exam: Code(s): Z00.00 - Encounter for general adult medical examination without abnormal findings (2) Cerebral palsy: Comment: ambulatory-hesitant w/stairs, etc.-alert/oriented-signs own consents Code(s): G80.9 - Cerebral palsy, unspecified Qualifiers: Cerebral palsy type: other type Qualified Code(s): G80.8 - Other cerebral palsy (3) Mild major depression: Code(s): F32.0 - Major depressive disorder, single episode, mild Plan Plan 1. Medicare Annual Wellness Visit We reviewed the patient's overall health status, current medications, specialists, and necessary health screenings. A Cologuard test will be ordered for colon cancer screening, as she is due. New lab orders were placed to check cholesterol, blood sugar, kidney function, liver function, and thyroid levels. The patient will follow up for her next scheduled office visit. 2. Severe Osteoporosis The patient will continue her current regimen of Prolia injections every six months. She will proceed with her scheduled follow-up DEXA scan early next year. She will continue to follow with her ux design lead for management. 3. Hypothyroidism The patient will continue taking levothyroxine 88 mcg daily. Her TSH level will be rechecked with the upcoming blood work to ensure it is within the therapeutic range. 4. Mild Depression Based on a PHQ-9 score of 5, her depression is currently mild. She will continue her current dose of fluoxetine 20 mg daily. Orders: Orders Vitamin D 25-OH Total Today E55.9 - Vitamin D deficiency, unspecified Thyroid Stimulating Hormone Today E03.9 - Hypothyroidism, unspecified Referrals Cologuard Test Z12.11 - Encounter for screening for malignant neoplasm of colon, Z12.12 - Encounter for screening for malignant neoplasm of rectum Medications: Changed From cetirizine (Zyrtec) 10 mg PO ONCE PRN allergy symptoms J30.2 - Other seasonal allergic rhinitis To cetirizine (Zyrtec) 10 mg PO BID PRN 30 tabs 0RF allergy symptoms 30 days J30.2 - Other seasonal allergic rhinitis Quality Reporting (2019) Depression/Bipolar (159/160/161/177) PHQ-9: Total score: 5 Coding Level of Care Code Medicare First (G0438) Diagnoses Adult general medical exam Z00.00 Other cerebral palsy G80.8 Cerebral palsy type: other type Mild major depression F32.0 Additional Codes PHQ-9 - 36104 - PHQ-9 Billing: Yes ([id number]) Time Spent (min) 34
--- OUTSIDE RECORDS SUMMARY | 2025-10-23 07:34 | XMS_ITS | Clinical Summary ---
Author Organization [facility] Address [address] [place] [address] Care Team Providers Care Marketing Analytics Analyst Name Role Phone CristinoduarteMariela Campa DO Primary Care Pro vider Medications norethindrone-e thinyl estradiol (Aurovela 11/25, ,) 1-20 mg-mcg per tablet TAKE 1 TABLET BY MOUTH EVERY DAY *ONLY TAKE ACTIVE TABLETS* 112 tablet 1 5 Active Aurovela 11/25, 21, 1-20 mg-mcg per tablet TAKE 1 TABLET BY MOUTH EVERY DAY *ONLY TAKE ACTIVE TABLETS* 109 tablet 5 10/06/20 25 Discontinued Surgical History Surgery Date Site/Laterality Comments CARDIAC [...] 01/29/2026 2:00 PM EDT Office Visit [facility]st[facility] [address] [place] [address] Rose Mary Correa, [address] [address] Health Maintenance Due Date Last Done [...] Depression Screening 11/06/2024 COVID-19 Vaccine ( - 2024-2 6 season) 2025 Influenza Vaccine (#1) 2025 09/14/2010 [...] AM EDT Other psoriasis Cerebral palsy, unspecified ([facility] V24, [facility] V28) Thyrotoxicosis, 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
[2025-10-23 07:37] VITALS: BP 122/62; PULSE 80; RESP 18; TEMP 36.6; O2SAT 98; BMI 30.3
== END 2025-10-23 08:06 | disposition home or self-care (01) ==
LOC: HO.HMCH 07:32
PROVIDERS: PCP Internal Medicine; Visit Provider Internal Medicine
DX: Z00.00 Encounter for general adult medical examination without abnormal findings (principal); G80.8 Other cerebral palsy; F32.0 Major depressive disorder, single episode, mild

== ENCOUNTER → 2025-10-23 07:31 | Outpatient (BNVA) | payer MEDICARE, MEDICAID, SELFPAY | PROVIDERS: PCP Internal Medicine; Visit Provider Internal Medicine | DX: Z13.31 Encounter for screening for depression (principal) | CPT/HCPCS: 96127 ==